=== PATIENT | male | born 1975 | race Caucasian/White ===

== ENCOUNTER 2016-12-06 14:30 | Inpatient (IN) | payer OTHER, MEDICAID ==
--- NOTE | 2016-12-06 14:43 | EDPHY ---
H & P Time Seen by Provider: 12/06/16 14:33 HPI/ROS: CHIEF COMPLAINT: MS flare up" HISTORY OF PRESENT ILLNESS: 41-year-old homeless male with history of multiple sclerosis arrives via ambulance after call 911 stating that he was no longer able to ambulate or ride his bike secondary to acute Bilateral foot and ankle pain, weakness, right hand weakness. He describes this as a MS flare. He has been staying and [facility] up until 6 days ago, was then incarcerated and recently released. Seen at [facility] Emergency Department last evening for similar complaints according the patient although he states that his current symptoms are worse. He denies acute trauma. States that he is unable to care for himself. He denies: Fever, chills, skin discoloration, nausea, vomiting, myalgias. REVIEW OF SYSTEMS: A ten point review of systems was performed and is negative with the exception of the items mentioned in the HPI PAST MEDICAL & SURGICAL HISTORY: Multiple sclerosis. SOCIAL HISTORY: Homeless. Daily cigarette smoker PHYSICAL EXAM (Prior to examination, patient consented to physical exam, hands were washed and my usual and customary physical exam procedures followed) 1) GENERAL: poorly kept,. Appears nontoxic, answering questions appropriately . 2) HEAD: Normocephalic, atraumatic 3) HEENT: Pupils equal, round, reactive to light bilaterally. Sclera anicteric. 4) NECK: Full range of motion, no meningeal signs. 5) LUNGS: Clear auscultation bilaterally, no wheezes, no rhonchi, no retractions. 6) HEART: Regular rate and rhythm, no murmur, no heave, no gallop. 7) ABDOMEN: No guarding, no rebound, no focal tenderness, 8) MUSCULOSKELETAL: Patient is able to transfer only is unable to ambulate without assistance of at a minimum to ER staff members. Peripheral edema of the lower extremities is noted. No signs of infection. Upper extremities with polyarthralgia on exam with no signs of infection bilaterally. No signs of cellulitis. 9) BACK: No CVA tenderness, no midline vertebral tenderness, no fluctuance, no step-off, no obvious trauma, no visual or palpable abnormality. 10) SKIN: No rash, no petechiae. 11) Psychiatric: Patient is oriented X 3, there is no agitation. DIFFERENTIAL DIAGNOSIS: no particular order including but not limited to multiple sclerosis flare, polyarthralgia, neuropathy, - Medical/Surgical History Hx Asthma: No Hx Chronic Respiratory Disease: No Hx Diabetes: No Hx Cardiac Disease: No Hx Renal Disease: No Hx Cirrhosis: No Hx Alcoholism: No Hx HIV/AIDS: No Hx Splenectomy or Spleen Trauma: No Other PMH: MS, mental health - Social History Smoking Status: Current every day smoker Constitutional: Initial Vital Signs Temperature (C) 36.6 C 12/06/16 14:45 Heart Rate 108 H 12/06/16 14:45 Respiratory Rate 18 12/06/16 14:45 Blood Pressure 150/72 H 12/06/16 14:45 O2 Sat (%) 96 12/06/16 14:45 O2 Delivery Mode Room Air Allergies/Adverse Reactions: No Known Allergies Allergy (Verified 11/12/16 05:58) Home Medications: Medication Instructions Recorded NK [No Known Home Meds] 12/06/16 Medical Decision Making ED Course/Re-evaluation: 2:45 pm Old medical records including [facility] ER note from last evening reviewed by myself. The patient is unable to ambulate without significant assistance of ER staff. Discussed case with Dr Sage in ER. Plan will be likely admission. 3:43 p.m.: Consultation with hospitalist Dr. Villarreal who will admit patient - Data Points Laboratory Results: Laboratory Results 12/06/16 15:11 12/06/16 15:11 WBC 7.38 10^3/uL (3.80-9.50) RBC 4.27 L 10^6/uL (4.40-6.38) Hgb 13.1 L g/dL (13.7-17.5) Hct 38.7 L % (40.0-51.0) MCV 90.6 fL (81.5-99.8) MCH 30.7 pg (27.9-34.1) MCHC 33.9 g/dL (32.4-36.7) RDW 13.2 % (11.5-15.2) Plt Count 274 10^3/uL (150-400) MPV 8.9 fL (8.7-11.7) Neut % (Auto) 49.2 % (39.3-74.2) Lymph % (Auto) 29.9 % (15.0-45.0) Stanton % (Auto) 9.9 % (4.5-13.0) Eos % (Auto) 10.2 H % (0.6-7.6) Baso % (Auto) 0.5 % (0.3-1.7) Nucleat RBC Rel Count 0.0 % (0.0-0.2) Absolute Neuts (auto) 3.63 10^3/uL (1.70-6.50) Absolute Lymphs (auto) 2.21 10^3/uL (1.00-3.00) Absolute Monos (auto) 0.73 10^3/uL (0.30-0.80) Absolute Eos (auto) 0.75 H 10^3/uL (0.03-0.40) Absolute Basos (auto) 0.04 10^3/uL (0.02-0.10) Absolute Nucleated RBC 0.00 10^3/uL (0-0.01) Immature Gran % 0.3 % (0.0-1.1) Immature Gran # 0.02 10^3/uL (0.00-0.10) Sodium Pending Potassium Pending Chloride Pending Carbon Dioxide Pending Anion Gap Pending BUN Pending Creatinine Pending Estimated GFR Pending Glucose Pending Calcium Pending Departure - Departure Disposition: [facility] Inpatient Acute Clinical Impression: Multiple sclerosis exacerbation, Homeless Condition: Fair Referrals: Patient,NotPresent [Primary Care Provider] - As per Instructions
[2016-12-06 15:19] LABS: % IMMATURE GRANULYOCYTES 0.3 % (0.0-1.1); ABSOLUTE IMMATURE GRANULOCYTES 0.02 10^3/uL (0.00-0.10); ADD DIFF? NO; ADD MORPH? NO; ADD SCAN? NO; ATYPICAL LYMPHOCYTE FLAG 20 (0-99); FRAGMENT RBC FLAG 0 (0-99); HEMATOCRIT 38.7 % (40.0-51.0); HEMOGLOBIN 13.1 g/dL (13.7-17.5); LEFT SHIFT FLG 0 (0-99); LIPEMIA HEMOLYSIS FLAG 90 (0-99); MEAN CELL HEMOGLOBIN 30.7 pg (27.9-34.1); MEAN CELL HEMOGLOBIN CONCENTR. 33.9 g/dL (32.4-36.7); MEAN CELL VOLUME 90.6 fL (81.5-99.8); MEAN PLATELET VOLUME 8.9 fL (8.7-11.7); PLATELET CLUMPS FLAG 0 (0-99); PLATELET COUNT 274 10^3/uL (150-400); RED BLOOD CELL COUNT 4.27 10^6/uL (4.40-6.38); RED CELL DISTRIBUTION WIDTH 13.2 % (11.5-15.2)
[2016-12-06 15:47] LABS: ANION GAP 12 mEq/L (8-16); CALCIUM 9.1 mg/dL (8.5-10.4); CARBON DIOXIDE 24 mEq/l (22-31); CHLORIDE 106 mEq/L (97-110); CREATININE 0.7 mg/dL (0.7-1.3); GLOMERULAR FILTRATION RATE > 60; GLUCOSE 108 mg/dL (70-100); POTASSIUM 4.2 mEq/L (3.5-5.2); SODIUM 142 mEq/L (134-144)
[2016-12-06] MEDS ORDERED: GABAPENTIN 300 MG CAP PO ONE (16:19)
[2016-12-06] MEDS ORDERED: PROMETHAZINE HCL 25 MG/ML INJ IVP PRN (16:21)
[2016-12-06] MEDS ORDERED: KETOROLAC 30 MG/1 ML SDV IVP PRN (16:21)
[2016-12-06] MEDS ORDERED: ACETAMINOPHEN 325 MG TAB PO PRN (16:21)
[2016-12-06] MEDS ORDERED: ONDANSETRON 4 MG/2 ML VIAL IVP PRN (16:21)
[2016-12-06] MEDS ORDERED: GABAPENTIN 300 MG CAP ONE (16:25)
[2016-12-06] MEDS: NS 1,000 ML IV SCH (17:45)
--- NOTE | 2016-12-06 20:35 | GHP ---
[f rep st] HISTORY AND PHYSICAL DATE OF ADMISSION: 12/06/2016 CHIEF COMPLAINT: Weakness. HISTORY OF PRESENT ILLNESS: The patient is a 41-year-old male diagnosed with multiple sclerosis and transverse myelitis here at [facility] in 2009. At that time, he had MRI findings on both his brain MRI and cervical MRI that were consistent with MS. He also reports a recent hospital ization to [place], where he was again found to have positive MRI changes and was started on treatmen t. He has a difficult social situation, however, and he is homeless. He was recently at [place], but there appeared to be some trouble with the law and he was temporally incarcerated and put back o n the streets. He is not doing well and having increased weakness for the last couple of days. He c alled 911 because he was no longer able to walk or ride his bike. He feels he is having another MS radha downs. He complains of increasing weakness in his hands. He is dropping things. He is unable to care for h imself. He has paresthesias in his fingers and it hurts to touch them. He has had some weakness. Chapis arellano has had increasing lower extremity edema. He does have some chronic right lower extremity weakness with a foot drop from his previous MS. He has increasing pain in his feet, ankle, and hands. He malave s increasing edema in his legs and hands. He describes the pain in his hands and feet as "shooting p ain." PAST MEDICAL HISTORY: 1. Multiple sclerosis and transverse myelitis, diagnosed by positive MRI in 2009. 2. Chronic right lower extremity weakness with foot drop. 3. Neuropathy. 4. Major depressive disorder with previous inpatient psychiatric hospitalizations. MEDICATIONS: Please see computer's list for full detailed list. I believe he is not taking anything . ALLERGIES: No known drug allergies. SOCIAL HISTORY: Smokes a half a pack per day. No alcohol. No drugs. He is homeless. Just left a SNF 10 days ago. REVIEW OF SYSTEMS: Complete review of systems obtained. Review of systems is negative regarding con stitutional, HEENT, GI, pulmonary, cardiovascular, , hematology, skin, musculoskeletal, endocrine, psych, except for positives and pertinent negatives listed as under HPI. FAMILY HISTORY: A sister with muscular dystrophy. PHYSICAL EXAMINATION: GENERAL: Well-developed, well-nourished male, in no acute distress. VITAL SI GNS: Temperature is 36.6, pulse 108, blood pressure 150/72, saturating 96% on room air. HEENT: Eye examination: Normal conjunctiva. Pupils equal and react to light. ENT: Normal ears and nose. He aring intact. Normal teeth. Oropharynx moist. NECK: Trachea midline. No thyromegaly. CHEST: No rmal respiratory effort. LUNGS: Clear to auscultation bilaterally. CARDIOVASCULAR: Regular rhythm . No murmur. 1+ lower extremity edema. ABDOMEN: Soft, nontender. No hepatosplenomegaly. SKIN: Poor hygiene. A lot of dry crusting skin. A lot of excoriations. Some erythema but nothing complet ree convincing for cellulitis, no warmth. MUSCULOSKELETAL: No sinus or clubbing. Strength is reduc ed upper and lower extremities. He has a weak hand beta tester. He has a 0/5 strength in right lower extre mity. NEURO: Cranial nerves intact. Decreased sensation to light touch. PSYCH: Alert and oriente d x3. Normal mood and affect. Normal judgment and insight. Normal memory. LABS: White count 7.38, hematocrit 38.7, platelets 274. Sodium 142, potassium 4.2, chloride 106, bi carb 24, BUN 14, creatinine 0.7, glucose 108. MEDICAL RECORD REVIEW: He was hospitalized here in 2009 and MRIs at that time did show changes consi stent with MS in his brain and cervical spine. He was thought to have transverse myelitis. He also, more recently, had a hospitalization here in October where the swelling and joint issues were more prominent. ASSESSMENT/PLAN: 1. Acute on chronic weakness, rule out multiple sclerosis flare. I will start with an MRI of his br ain and cervical spine, as this is the area where lesions have been found in the past. Will consult Neurology. 2. Neuropathy. We will restart him on gabapentin. 3. Lower extremity edema. Will check ultrasound to rule out deep venous thrombosis. We will monito r for cellulitis. However, at this point, my suspicion is low so will hold off on the antibiotics. 4. Tobacco dependence. Will offer nicotine patch. CODE STATUS: Full. ADMISSION STATUS: Will admit to inpatient as I anticipate greater than 2 midnights required given co mplicated situation discussed above. DVT PROPHYLAXIS: He is high risk. Will place on subcu Lovenox. /[id number]/MODL
--- NOTE | 2016-12-06 20:49 | US ---
Bilateral lower extremity venous Doppler examination. December 06, 2016 HISTORY: Bilateral lower extremity edema. TECHNIQUE: Sonographic evaluation of the lower extremity venous system was performed bilaterally util izing pulsed and color flow Doppler evaluation with augmentation and compression maneuvers. FINDINGS: Study is technically limited secondary to patient clinical condition. No evidence of deep venous thrombosis within the lower extremities bilaterally. Patent venous flow is identified in the common femoral, deep femoral, popliteal, and proximal calf veins, as visualized. IMPRESSION: 1. Negative bilateral lower extremity Doppler examination for DVT.
[2016-12-06] MEDS: oxyCODONE IR 5 MG TAB PO PRN (22:37)
[2016-12-07] MEDS: NS 1,000 ML IV SCH (03:33)
[2016-12-07 05:41] LABS: % IMMATURE GRANULYOCYTES 0.1 % (0.0-1.1); ABSOLUTE IMMATURE GRANULOCYTES 0.01 10^3/uL (0.00-0.10); ADD DIFF? NO; ADD MORPH? NO; ADD SCAN? NO; ATYPICAL LYMPHOCYTE FLAG 20 (0-99); FRAGMENT RBC FLAG 0 (0-99); HEMATOCRIT 36.9 % (40.0-51.0); HEMOGLOBIN 12.2 g/dL (13.7-17.5); LEFT SHIFT FLG 0 (0-99); LIPEMIA HEMOLYSIS FLAG 80 (0-99); MEAN CELL HEMOGLOBIN 30.5 pg (27.9-34.1); MEAN CELL HEMOGLOBIN CONCENTR. 33.1 g/dL (32.4-36.7); MEAN CELL VOLUME 92.3 fL (81.5-99.8); MEAN PLATELET VOLUME 9.1 fL (8.7-11.7); PLATELET CLUMPS FLAG 0 (0-99); PLATELET COUNT 248 10^3/uL (150-400); RED CELL DISTRIBUTION WIDTH 13.3 % (11.5-15.2)
[2016-12-07] MEDS: ENOXAPARIN 40 MG/0.4 ML SYR SC SCH (08:10)
[2016-12-07] MEDS: GABAPENTIN 300 MG CAP PO SCH ×2 (08:10→19:53)
[2016-12-07] MEDS: NICOTINE 14 MG/24 HR PATCH TD SCH (08:14)
--- NOTE | 2016-12-07 10:22 | GCON ---
[f rep st] CONSULTATION NEUROLOGY CONSULTATION. REFERRING PHYSICIAN: Mirian Lopez MD HISTORY: The patient is a 41-year-old gentleman who has multiple sclerosis. He is here because of a n exacerbation of symptoms characterized by increasing weakness in the legs and more pain in the wris ts and ankles. His history dates back almost 10 years ago when he 1st started having symptoms and wh at sounds like an optic neuritis attack in the beginning of transverse myelitis with right-sided numb ness or weakness. I saw him in 2009 when he was here in the hospital for alcohol withdrawal, and his workup at the time showed features of myelopathy for which MRI confirmed lesion in the cervical cord , and then subsequent brain MRI showed lesions typical of the disease. He had received steroids and had some improvements. He has had some chronic right foot drop which has never fully resolved. Afte r that, he was lost to followup in terms of seeing me in the office. He has continued with various c hallenges from his homelessness and apparent incarceration recently. He has had some treatment in [facility] a few months ago for right wrist drop for which he says steroids were helpful. In the last 48 hours or so, these symptoms have started to flare up without any obvious precipitating cause such as illness. He really started noticing trouble getting on his bike and riding his bicycle. He says his walking has deteriorated a bit as well. The symptoms are moderate in severity and certainly much wo rse than his prior baseline, he says. REVIEW OF SYSTEMS: A 10-point review of systems was completed and unremarkable except for that noted above. PAST MEDICAL HISTORY: As outlined above. Also, history of chronic alcoholism, psychiatric illness w ith psychiatric inpatient hospitalizations in the past, peripheral neuropathy, and chronic right foot drop for many years, either related to peripheral neuropathy or multiple sclerosis. It does not salina ear that he has been on any regular disease modifying medications at any point due to his social situ ation. He smokes half pack a day. He is apparently not drinking currently. No drug use. He does r emain homeless and was in an SNF recently. He also apparently was discharged; I am not byrne re if he is eligible to go back if there were legal issues. All of that is very unclear. ALLERGIES: No known drug allergies. MEDICATIONS: He was not on any medicines prior to admission. The patient is now on Lovenox, gabapen tin 300 mg twice daily, Motrin as needed, Toradol as needed, morphine as needed, NicoDerm patch, Zofr an, oxycodone, Phenergan. FAMILY HISTORY: Noncontributory. PHYSICAL EXAMINATION: VITAL SIGNS: Blood pressure 121/72, pulse of 86, respirations 20, temperature 36.4. GENERAL: He is well developed, in no acute distress. EYES: Clear. NECK: Supple with no b ruits or masses. CARDIAC: Regular rate and rhythm with no murmur. EXTREMITIES: Have no cyanosis, but there is a little bit of erythema in the right lower extremity with a little bit of distal edema and scaling of the skin. NEUROLOGIC: He is awake, alert, and attentive. He is oriented to person, place, time, and general situation. Concentration and attention are preserved. General fund of [facility] led is reduced. He has good recent and remote memory. His mood seems to be euthymic. Pupils are 2 mm and reactive. Funduscopic exam unremarkable. Visual schmitt are full. Extraocular movements ar e intact. Normal facial sensation and strength. Palate elevates symmetrically. Tongue protrudes mi dline. Hearing is preserved. No weakness of head turning or shoulder shrug. Motor exam: Normal mu scle bulk and tone with 4 or 5/5 strength throughout except for some weakness of dorsiflexion on the right in the 2/5 range. Reflexes are brisk. Sensation is preserved for temperature and light touch. No ataxia in the upper extremities. He has MRI of the brain and C-spine pending for followup evaluation to assess the status of his demye linating disease. LABORATORY STUDIES: Hematocrit is 36.9, normal white count. Chemistry unremarkable. Toxicology radha ws marijuana in the system from October but none since then, but it was not checked on this hospital ization. IMPRESSION: The patient has a clear history of multiple sclerosis of a relapsing remitting form, and has had response to steroids in the past that have been helpful. I have had an opportunity to see xiao leon 3 years ago, but he was lost to follow up after that. His social situation is the main issue from his homelessness and other challenges. He clearly needs to be on regular disease modifying therapy, but that is not an option if he cannot regularly follow up due to the potential toxicity and other c hallenges. For now, he needs to be put on a course of IV steroids which I will initiate today, and t morris he can go on an oral taper after that. Depending on what we can determine for followup, I am hap py to see him in the office and try to come up with a strategy for getting him on disease modifying t herapy. /[id number]/MODL
[2016-12-07] MEDS ORDERED: LORazepam 2 MG/ML INJ IVP ONE (10:57)
[2016-12-07] MEDS ORDERED: LORazepam 2 MG/ML INJ ONE (11:02)
[2016-12-07] MEDS ORDERED: GADOBUTROL 10 ML VIAL IVP ONE (11:48)
--- NOTE | 2016-12-07 12:56 | HOSPPROG ---
Hospitalist Progress Note Assessment/Plan: 41-year-old male presents emergency room with complaints of weakness with history of MS. Is my 1st encounter with the patient, chart reviewed. Discussed the patient's care with Dr. Robert Lowe. # MS exacerbation MRI today IV steroids Appreciate Neurology consult PT OT trupti # homelessness Reviewed with test case developer Will continue to attempt to developed a discharge plan # history of neuropathy Will reinitiate home medications # lower extremity edema Ultrasound negative # disposition Unclear at this time Patient homeless but requiring further care in Will consider shelter facility rehabilitation Subjective: No specific issues. Feels weak and tired. No pain currently. Objective: Vital Signs Temp Pulse Resp BP Pulse Ox 36.4 C 86 20 121/72 H 96 12/07/16 08:00 12/07/16 08:00 12/07/16 08:00 12/07/16 08:00 12/07/16 08:00 Laboratory Results 12/07/16 04:36 - Physical Exam Constitutional: appears nourished, not in pain, chronically ill appearing Eyes: PERRL, anicteric sclera, EOMI Ears, Nose, Mouth, Throat: moist mucous membranes, hearing normal, ears appear normal Cardiovascular: regular rate and rhythym, No JVD, No edema Respiratory: no respiratory distress, no rales or rhonchi, reduced air movement Gastrointestinal: No tenderness, No ascites, No guarding Skin: warm, normal color, No erythema Musculoskeletal: no joint effusions, muscular tenderness, generalized weakness Neurologic: AAOx3 Psychiatric: not encephalopathic, thought process linear, poor insight, poor judgement ICD10 Worksheet Patient Problems: Problems Problem Status Diagnosed Arthralgia Acute Homeless Acute Multiple sclerosis exacerbation Acute Depression Acute
[2016-12-07] MEDS: methylPREDNISolone SOD SUCC 1 GM in D5W 100 ML IV SCH (13:11)
--- NOTE | 2016-12-07 14:18 | MR ---
MRI of the Brain (Without and With Contrast) at 1112 hours Clinical Indication: Multiple sclerosis, G 35, flareup. Right leg weakness. COMPARISON: MRI January 2010 Technique: T1-weighted images were acquired axially and sagittally from the foramen magnum to the ve rtex. Axial fast inversion recovery, fast T2-weighted, and diffusion-weighted axial images were obta ined without contrast. Postcontrast axial and coronal images with the uneventful intravenous administ ration of 8.5 mL Gadavist contrast. 8.5 mL Gadavist utilized for MRI brain and cervical spine. Findings: A few stable right frontal lobe mid white matter and periventricular white matter hyperint ense T2/FLAIR nonenhancing T2/FLAIR signal abnormalities, unchanged since January 2010. No evidence of new or enhancing demyelinating plaques. No brainstem or cerebellar lesions. The ventricles, cisterns, and sulci are normal without atrophy, hydrocephalus, midline shift, herniat ion, or epidural/subdural hematomas. No intracranial hemorrhage. Diffusion-weighted images demonstrat e no acute infarct. Cerebellar tonsils are in normal position. Pituitary gland is normal in size. Nor mal signal flow-void in the superior sagittal sinus, basilar artery, and bilateral internal carotid a rteries indicating patency. Postcontrast images demonstrate no enhancing lesions or abnormal leptomen ingeal enhancement. Left maxillary sinus 2 cm mucous retention cyst. Impression: 1. A few right frontal lobe stable white matter nonenhancing lesions probably representing multiple s clerosis demyelinating plaques. 2. No new demyelinating plaques or enhancing plaques. 3. No acute infarct, acute hemorrhage, hydrocephalus or mass effect.
--- NOTE | 2016-12-07 16:59 | MR ---
MRI Cervical Spine (Without and With Contrast) History: Multiple sclerosis with right leg weakness. G 35 COMPARISON: MRI January 2010 Technique: Sagittal T1, T2 and axial T1, T2 MR sequences of the cervical spine without contrast. Post contrast sagittal and axial T1-weighted sequences obtained with the uneventful intravenous administra tion of 8.5 mL Gadavist contrast utilized for the MRI brain and cervical spine. Findings: No cervical compression fracture or destructive osseous lesions. Multifocal areas of abn ormal increased T2/FLAIR signal intensity in the cervical spinal cord from the C2 through the T2 leve ls with associated atrophy of the cord at C2-C3 and C6. These are consistent with nonenhancing demyel inating plaques compatible with multiple sclerosis and appear similar to the study from 2009 although there is suggestion of mild worsening of cord atrophy at the C3 level. Cerebellar tonsils are in no rmal position. C2-C3: Mild bilateral facet arthropathy without disc herniation or stenosis. C3-C4: Mild degenerative disc disease with a right paramedian disc/osteophyte complex and disc hernia tion, protrusion, resulting in mild central canal stenosis and mild right neural foraminal stenosis. No cord compression. C4-C5: Mild bilateral facet arthropathy and mild degenerative disc disease with bilateral uncovertebr al osteophytes resulting in mild bilateral neural foraminal stenosis without central canal stenosis. C5-C6: No disc herniation or stenosis. C6-C7: Mild degenerative disc disease with ventral osteophytes and bilateral uncovertebral osteophyte s resulting in [id number] bilateral neural foraminal stenosis without central canal stenosis. C7-T1: Moderate bilateral facet arthropathy without central canal or neural foraminal stenosis. No cord compression or deformity. No enhancing lesions, diskitis, or osteomyelitis. Impression: 1. Multiple nonenhancing demyelinating plaques in the cervical spinal cord with associated cord atrop hy. 2. C3-C4 right paramedian disc/osteophyte complex and disc herniation, protrusion, resulting in mild central canal stenosis and mild right neural foraminal stenosis. 3. No cord compression. 4. Please see above findings at specific disk levels.
[2016-12-07] MEDS: oxyCODONE IR 5 MG TAB PO PRN (19:53)
[2016-12-08] MEDS: ENOXAPARIN 40 MG/0.4 ML SYR SC SCH (09:49)
[2016-12-08] MEDS: methylPREDNISolone SOD SUCC 1 GM in D5W 100 ML IV SCH (09:50)
[2016-12-08] MEDS: GABAPENTIN 300 MG CAP PO SCH ×2 (09:50→21:54)
[2016-12-08] MEDS: NICOTINE 14 MG/24 HR PATCH TD SCH (09:56)
[2016-12-08] MEDS ORDERED: LORazepam 2 MG/ML INJ IVP PRN (14:03)
--- NOTE | 2016-12-08 14:28 | HOSPPROG ---
Hospitalist Progress Note Assessment/Plan: 41-year-old male presents emergency room with complaints of weakness with history of MS. # MS exacerbation IV steroids Appreciate Neurology consult PT OT eval # homelessness Reviewed with [employer] Will continue to attempt to developed a discharge plan # history of neuropathy home medications # agitation Likely secondary to IV steroids P.r.n. Ativan ordered Reviewed boundaries with patient # lower extremity edema Ultrasound negative # disposition Unclear at this time Patient homeless but requiring further care Will consider residential facility rehabilitation Subjective: Patient feels better today. Still felling tired. Objective: Vital Signs Temp Pulse Resp BP Pulse Ox 36.8 C 90 16 116/69 94 12/08/16 07:58 12/08/16 07:58 12/08/16 07:58 12/08/16 07:58 12/07/16 22:32 Laboratory Results 12/07/16 04:36 12/07/16 12/08/16 12/09/16 05:59 05:59 05:59 Intake Total 500 Output Total 700 625 Balance -200 -625 - Physical Exam Constitutional: no apparent distress, not in pain Eyes: PERRL, anicteric sclera Ears, Nose, Mouth, Throat: hearing normal, ears appear normal Cardiovascular: regular rate and rhythym, No JVD Respiratory: no respiratory distress, reduced air movement Gastrointestinal: No tenderness, No ascites Skin: warm, normal color Musculoskeletal: normal joint ROM, no joint effusions Neurologic: AAOx3 Psychiatric: not encephalopathic, poor insight, poor judgement ICD10 Worksheet Patient Problems: Problems Problem Status Diagnosed Arthralgia Acute Homeless Acute Multiple sclerosis exacerbation Acute Depression Acute
[2016-12-08] MEDS: oxyCODONE IR 5 MG TAB PO PRN (15:14)
--- NOTE | 2016-12-09 09:03 | NEUROPROG ---
Assessment: Patient has had some escalated anger and can certainly stop the steroids now that he has completed 3 days. It is not necessary to do a oral taper. It is not necessarily related to steroids, but it is certainly a possibility. The anti-inflammatory effects will persist and the cognitive changes would fairly rapidly resolve if that is the issue. Once disposition is determined, he can certainly follow up in the office for management of multiple sclerosis. Please contact me with any other questions. Objective: Vital Signs Temp Pulse Resp BP Pulse Ox 36.7 C 91 18 125/74 H 92 12/09/16 08:00 12/09/16 08:00 12/09/16 08:00 12/09/16 08:00 12/09/16 08:00 Laboratory Results 12/07/16 04:36 12/08/16 12/09/16 12/10/16 05:59 05:59 05:59 Intake Total 500 108 Output Total 700 9676 Balance -200 -1167 Allergies/Adverse Reactions: No Known Allergies Allergy (Verified 11/12/16 05:58)
[2016-12-09] MEDS: GABAPENTIN 300 MG CAP PO SCH ×2 (09:15→21:02)
[2016-12-09] MEDS: ENOXAPARIN 40 MG/0.4 ML SYR SC SCH (09:15)
[2016-12-09] MEDS: NICOTINE 14 MG/24 HR PATCH TD SCH (09:15)
[2016-12-09] MEDS: methylPREDNISolone SOD SUCC 1 GM in D5W 100 ML IV SCH (09:20)
[2016-12-09] MEDS: IBUPROFEN 600 MG TAB PO PRN (12:09)
[2016-12-09 16:04] LABS: PHENCYCLIDINE URINE BCH < 6 ng/ml (NEGATIVE); TETRAHYDROCANNABINOL URINE 60 ng/mL (NEGATIVE)
[2016-12-09 16:05] LABS: PHENCYCLIDINE URINE BCH NEGATIVE (NEGATIVE); TETRAHYDROCANNABINOL URINE 60 ng/mL (NEGATIVE)
[2016-12-09] MEDS: LORazepam 1 MG TAB PO PRN ×2 (16:55→21:02)
--- NOTE | 2016-12-09 20:28 | HOSPPROG ---
Hospitalist Progress Note Assessment/Plan: 41-year-old male presents emergency room with complaints of weakness with history of MS. # MS exacerbation IV steroids completed Appreciate Neurology consult PT OT eval # homelessness Reviewed with case reviewer Will continue to attempt to develope a discharge plan PASSR pending, likely DC to [place] # history of neuropathy home medications # agitation Likely secondary to IV steroids P.r.n. Ativan ordered Reviewed boundaries with patient he will be discharged if any further inappropriate behavior happens # lower extremity edema Ultrasound negative # disposition Unclear at this time Patient homeless but requiring further care [facility] rehabilitation recommended Await PASSR D/W pt and CM. Subjective: Up in chair. No specific issues. Having some anxiety. Feels unsafe to DC to the street. Objective: Vital Signs Temp Pulse Resp BP Pulse Ox 36.7 C 91 18 125/74 H 92 12/09/16 08:00 12/09/16 08:00 12/09/16 08:00 12/09/16 08:00 12/09/16 08:00 Laboratory Results 12/07/16 04:36 12/08/16 12/09/16 12/10/16 05:59 05:59 05:59 Intake Total 500 108 Output Total 700 1275 Balance -200 -1167 - Physical Exam Constitutional: no apparent distress, appears nourished, not in pain Eyes: PERRL, anicteric sclera, EOMI Ears, Nose, Mouth, Throat: moist mucous membranes, hearing normal, ears appear normal Cardiovascular: regular rate and rhythym, No irregularly irregular, No JVD Respiratory: no respiratory distress, no rales or rhonchi, clear to auscultation Gastrointestinal: normoactive bowel sounds, No tenderness, No ascites Skin: warm, normal color, No erythema Musculoskeletal: no joint effusions, muscular tenderness, generalized weakness Neurologic: AAOx3 Psychiatric: interacting appropriately, not encephalopathic, thought process linear, anxious ICD10 Worksheet Patient Problems: Problems Problem Status Diagnosed Arthralgia Acute Homeless Acute Multiple sclerosis exacerbation Acute Depression Acute
[2016-12-10] MEDS: LORazepam 1 MG TAB PO PRN ×4 (02:37→22:24)
--- NOTE | 2016-12-10 07:15 | HOSPPROG ---
Hospitalist Progress Note Assessment/Plan: 41-year-old male PMH MS diagnosed 10 years ago, MDD, EtOH, presented to ED on with increased weakness in hands, inability to care for himself, paresthesias in fingers, increasing pain in ankles/hands/feet, edema in hands/ feet. # MS exacerbation IV steroids completed Appreciate Neurology consult PT OT eval # homelessness Reviewed with caseworker protective services Will continue to attempt to develop a discharge plan PASSR pending, likely DC to [place] # history of neuropathy home medications # agitation Likely secondary to IV steroids P.r.n. Ativan ordered Reviewed boundaries with patient he will be discharged if any further inappropriate behavior happens # lower extremity edema Ultrasound negative # disposition Unclear at this time Patient homeless but requiring further care half-way facility rehabilitation recommended Await PASSR D/W pt and CM. Subjective: He feels his mood is more stable. Reports ongoing shooting pains in hands. Still feels unstable in his gait. Objective: Vital Signs Temp Pulse Resp BP Pulse Ox 98.1 F 77 16 134/83 H 97 12/09/16 23:30 12/09/16 23:30 12/09/16 23:30 12/09/16 23:30 12/09/16 23:30 Laboratory Results 12/07/16 04:36 12/09/16 12/10/16 12/11/16 05:59 05:59 05:59 Intake Total 108 Output Total 1275 Balance -1167 - Physical Exam Constitutional: no apparent distress, appears nourished Eyes: PERRL, anicteric sclera Ears, Nose, Mouth, Throat: moist mucous membranes, hearing normal Cardiovascular: regular rate and rhythym, no murmur, rub, or gallop Respiratory: no respiratory distress, no rales or rhonchi Gastrointestinal: normoactive bowel sounds, soft, non-tender abdomen Genitourinary: no bladder fullness Skin: warm, normal color Neurologic: AAOx3 Psychiatric: interacting appropriately, not anxious ICD10 Worksheet Patient Problems: Problems Problem Status Diagnosed Arthralgia Acute Homeless Acute Multiple sclerosis exacerbation Acute Depression Acute
[2016-12-10] MEDS: NICOTINE 14 MG/24 HR PATCH TD SCH (10:45)
[2016-12-10] MEDS: ENOXAPARIN 40 MG/0.4 ML SYR SC SCH (10:45)
[2016-12-10] MEDS: GABAPENTIN 300 MG CAP PO SCH ×2 (10:45→22:24)
[2016-12-11] MEDS: LORazepam 1 MG TAB PO PRN ×4 (03:02→21:28)
[2016-12-11] MEDS: ENOXAPARIN 40 MG/0.4 ML SYR SC SCH (09:32)
[2016-12-11] MEDS: GABAPENTIN 300 MG CAP PO SCH ×2 (09:32→21:28)
[2016-12-11] MEDS: NICOTINE 14 MG/24 HR PATCH TD SCH (09:32)
--- NOTE | 2016-12-11 10:42 | HOSPPROG ---
Hospitalist Progress Note Assessment/Plan: 41-year-old male PMH MS diagnosed 10 years ago, MDD, EtOH, presented to ED on with increased weakness in hands, inability to care for himself, paresthesias in fingers, increasing pain in ankles/hands/feet, edema in hands/ feet. # MS exacerbation IV steroids completed Appreciate Neurology consult PT OT eval # homelessness Reviewed with case manager specialist Will continue to attempt to develop a discharge plan PASSR pending, likely DC to [facility] but we likely won't hear until tomorrow # history of neuropathy home medications # agitation Likely secondary to IV steroids P.r.n. Ativan ordered pt is awake and alert but minimally responds to questions today # lower extremity edema Ultrasound negative # disposition Unclear at this time Patient homeless but requiring further care shelter facility rehabilitation recommended Await PASSR D/W pt and CM. Subjective: Reports he is not doing well but will not answer further questions. Objective: Vital Signs Temp Pulse Resp BP Pulse Ox 97.7 F 96 16 128/84 H 94 12/11/16 07:40 12/11/16 07:40 12/11/16 07:40 12/11/16 07:40 12/11/16 07:40 Laboratory Results 12/07/16 04:36 - Physical Exam Constitutional: no apparent distress, appears nourished Ears, Nose, Mouth, Throat: moist mucous membranes Cardiovascular: regular rate and rhythym, no murmur, rub, or gallop Respiratory: no respiratory distress, no rales or rhonchi Skin: warm, normal color ICD10 Worksheet Patient Problems: Problems Problem Status Diagnosed Arthralgia Acute Homeless Acute Multiple sclerosis exacerbation Acute Depression Acute
[2016-12-11] MEDS: oxyCODONE IR 5 MG TAB PO PRN (21:33)
[2016-12-12] MEDS: oxyCODONE IR 5 MG TAB PO PRN ×3 (04:57→20:14)
[2016-12-12] MEDS: LORazepam 1 MG TAB PO PRN ×3 (04:58→22:36)
[2016-12-12] MEDS: NICOTINE 14 MG/24 HR PATCH TD SCH (08:20)
[2016-12-12] MEDS: ENOXAPARIN 40 MG/0.4 ML SYR SC SCH (08:20)
[2016-12-12] MEDS: GABAPENTIN 300 MG CAP PO SCH ×2 (08:20→20:14)
--- NOTE | 2016-12-12 16:08 | HOSPPROG ---
Hospitalist Progress Note Assessment/Plan: 41-year-old male presents emergency room with complaints of weakness with history of MS. # MS exacerbation IV steroids completed Appreciate Neurology consult PT OT eval # homelessness Reviewed with catalytic case operator Will continue to attempt to develop a discharge plan PASSR pending, likely DC to [place] # history of neuropathy home medications # agitation Likely secondary to IV steroids P.r.n. Ativan ordered Reviewed boundaries with patient he will be discharged if any further inappropriate behavior happens # lower extremity edema Ultrasound negative # disposition Unclear at this time Patient homeless but requiring further care [facility] facility rehabilitation recommended Await PASSR D/W pt and CM. Subjective: Anxious about discharge. No current pain. No specific issues. Objective: Vital Signs Temp Pulse Resp BP Pulse Ox 36.8 C 112 H 18 137/83 H 94 12/12/16 15:27 12/12/16 15:27 12/12/16 15:27 12/12/16 15:27 12/12/16 15:27 Laboratory Results 12/07/16 04:36 12/11/16 12/12/16 12/13/16 05:59 05:59 05:59 Intake Total 1700 Output Total 2650 Balance -950 - Physical Exam Constitutional: no apparent distress, appears nourished, not in pain Eyes: PERRL, anicteric sclera, EOMI Ears, Nose, Mouth, Throat: moist mucous membranes, hearing normal, ears appear normal Cardiovascular: regular rate and rhythym, No JVD Respiratory: no respiratory distress, reduced air movement Gastrointestinal: No tenderness, No ascites Skin: warm, normal color Musculoskeletal: muscular tenderness, abnormal gait, generalized weakness Neurologic: AAOx3 Psychiatric: not anxious, not encephalopathic ICD10 Worksheet Patient Problems: Problems Problem Status Diagnosed Arthralgia Acute Homeless Acute Multiple sclerosis exacerbation Acute Depression Acute
[2016-12-12] MEDS: IBUPROFEN 600 MG TAB PO PRN (22:36)
[2016-12-13 07:16] VITALS: RESP 18
[2016-12-13] MEDS: GABAPENTIN 300 MG CAP PO SCH ×2 (09:21→22:23)
[2016-12-13] MEDS: NICOTINE 14 MG/24 HR PATCH TD SCH (09:21)
[2016-12-13] MEDS: ENOXAPARIN 40 MG/0.4 ML SYR SC SCH (09:22)
--- NOTE | 2016-12-13 15:04 | HOSPPROG ---
Hospitalist Progress Note Assessment/Plan: 41-year-old male presents emergency room with complaints of weakness with history of MS. # MS exacerbation IV steroids completed Appreciate Neurology consult PT OT eval # homelessness Reviewed with pillowcase turner Will continue to attempt to develop a discharge plan PASSR complete, likely DC to [place] # history of neuropathy home medications # agitation Likely secondary to IV steroids P.r.n. Ativan ordered Reviewed boundaries with patient he will be discharged if any further inappropriate behavior happens # lower extremity edema Ultrasound negative # disposition Unclear at this time Patient homeless but requiring further care halfway facility rehabilitation recommended D/W pt and CM. DC when facility accepts patient Subjective: Tired today. No specific complaints. Anxious to leave the hospital. Still having some weakness. Objective: Vital Signs Temp Pulse Resp BP Pulse Ox 36.7 C 80 18 112/76 94 12/13/16 07:15 12/13/16 07:15 12/13/16 07:15 12/13/16 07:15 12/13/16 07:15 Laboratory Results 12/07/16 04:36 12/12/16 12/13/16 12/14/16 05:59 05:59 05:59 Intake Total 1700 Output Total 2650 350 Balance -950 -350 - Physical Exam Constitutional: appears nourished, not in pain Eyes: PERRL, anicteric sclera Ears, Nose, Mouth, Throat: moist mucous membranes, hearing normal, ears appear normal Cardiovascular: No JVD, No edema Respiratory: no respiratory distress, reduced air movement Gastrointestinal: No tenderness, No ascites Skin: warm, normal color Musculoskeletal: generalized weakness Neurologic: AAOx3 Psychiatric: interacting appropriately, not anxious, not encephalopathic ICD10 Worksheet Patient Problems: Problems Problem Status Diagnosed Arthralgia Acute Homeless Acute Multiple sclerosis exacerbation Acute Depression Acute
[2016-12-13] MEDS: IBUPROFEN 600 MG TAB PO PRN (22:22)
[2016-12-13] MEDS: LORazepam 1 MG TAB PO PRN (22:23)
[2016-12-14 08:06] VITALS: BP 139/77; PULSE 90; TEMP 97.8; O2SAT 96
[2016-12-14] MEDS: NICOTINE 14 MG/24 HR PATCH TD SCH (08:37)
[2016-12-14] MEDS: GABAPENTIN 300 MG CAP PO SCH (08:37)
[2016-12-14] MEDS: ENOXAPARIN 40 MG/0.4 ML SYR SC SCH (08:37)
--- NOTE | 2016-12-14 09:52 | PDIAF ---
- Diagnosis Diagnosis: MS Code Status: Full Code - Medication Management Discharge Medications: Medications to Continue on Transfer Acetaminophen [Tylenol 325mg (*)] 650 mg PO Q4 PRN #0 tab 12/09/16 [Last Taken Unknown] Gabapentin [Neurontin 300 MG (*)] 300 mg PO BID #60 cap 12/09/16 [Last Taken Unknown] Ibuprofen [Motrin (*)] 600 mg PO Q6HRS PRN #0 tab 12/09/16 [Last Taken Unknown] LORazepam [Ativan (*)] 1 mg PO Q4HRS PRN #0 tab 12/14/16 [Last Taken Unknown] Discharge Medications: Refer to the Discharge Home Medication list for PRN reason. PICC Care - Routine: N/A - Orders Services needed: Registered Nurse, Physical Therapy, Occupational Therapy - Follow Up Care Current Providers and Referrals: Patient,NotPresent [Unknown] - As per Instructions Robert Lowe MD [Medical Doctor] -
--- NOTE | 2016-12-14 15:32 | GDS ---
[f rep st] DISCHARGE SUMMARY DISCHARGE DIAGNOSES: 1. Multiple sclerosis exacerbation. 2. Weakness. 3. Homelessness. 4. Neuropathy. 5. Edema. CONSULTATIONS: Neurology. STUDIES AND PROCEDURES: 1. Doppler. 2. Brain MRI. 3. Cervical spine MRI. PHYSICAL EXAMINATION: GENERAL: The patient is alert and oriented, in no acute distress. VITAL SIGN S: Afebrile at 36.6, pulse 90, respiratory rate is 18, blood pressure is 139/77, saturating 96% on r oom air. I saw and evaluated the patient on the day of discharge. HOSPITAL COURSE: The patient is a 41-year-old male who presented to the emergency room with complain ts of weakness. He was evaluated and diagnosed with: 1. Acute MS exacerbation. During this hospitalization, he was treated with IV steroids. A neurolog y consult was obtained. MRI of his brain and neck were conclusive for new demyelinating plaques. He is recommended to have outpatient continued management of his MS, and will follow up with Dr. Brea amin of neurology. 2. Homelessness. The patient has been discharged to [facility] for further rehabilitation and manage ment. 3. Neuropathy. His home medications have been continued. 4. Agitation. This has resolved and is likely secondary to the high-dose steroids. 5. Lower extremity edema. Bilateral ultrasounds negative during this hospitalization. The patient' s edema has significantly improved. DISPOSITION: The patient will be discharged to [facility] for further strengthening and management. There are no pending studies. DISCHARGE MEDICATIONS: Please refer to EMR form. The patient has been continued on his previously p rescribed Neurontin. FOLLOWUP: With Dr. Lowe, his primary neurologist, as well as [facility], his primary care physician. I spent greater than 35 minutes in the care, coordination, and management of this patient's dispositi on. /[id number]/MODL
== END 2016-12-14 11:46 | DRG 60 ==
LOC: EDUNIT# → F3E 17:49
PROVIDERS: ADMIT Internal Medicine; ATTEND Hospitalist
DX: G35 Multiple sclerosis (principal); G62.9 Polyneuropathy, unspecified; F32.9 Major depressive disorder, single episode, unspecified; F17.210 Nicotine dependence, cigarettes, uncomplicated; Z59.0 Homelessness; F10.21 Alcohol dependence, in remission; R60.9 Edema, unspecified; R45.1 Restlessness and agitation
CPT/HCPCS: 80307; 92507-GN; 92523-GN; 92610-GN; 97110-GO; 97116-GP; 97162-GP; 97166-GO; 97530-GO; A9585; G0480; G8978-GP-CJ; G8979-GP-CI; G8987-GO-CL; G8988-GO-CI; G8996-GN-CH; G8997-GN-CH; G8998-GN-CH; G9165-GN-CI; G9165-GN-CJ; G9166-GN-CI; G9167-GN-CI; J1650; J1885; J2930

== ENCOUNTER 2017-10-29 15:24 | Emergency (ER) | payer OTHER, MEDICAID ==
[2017-10-29 15:38] VITALS: BP 134/93; PULSE 92; RESP 16; TEMP 98.8; O2SAT 95
--- NOTE | 2017-10-29 16:00 | EDPHY ---
H & P Time Seen by Provider: 10/29/17 15:32 HPI/ROS: 42-year-old male presents complaining of 1 week of rash, pruritic, worse at nighttime. He states that began about 1 week ago and initially was in the creases of his neck and now involves his arms and torso. No fevers or chills, no current cold symptoms no recent illnesses. Patient denies unusual exposures other than he was staying in a intermediate last week just prior to the onset of this rash. Review of systems As per HPI General no fever no chills no weakness HEENT no eye pain no eye discharge. No eye redness, no sore throat Respiratory no cough, no shortness of breath Cardiac no chest pain, no peripheral edema GI no abdominal pain, no diarrhea, no constipation, no nausea, no vomiting no flank pain, no hematuria, no dysuria Musculoskeletal no myalgias, no joint pain Heme no easy bruising, no easy bleeding Endo no polyuria, no polydipsia Skin positive rashes, no pruritus Neuro no syncope, no dizziness, no headaches Psych is no suicidal ideation, no homicidal ideation Past Medical/Surgical History: Depression/anxiety Social History: Smokes daily, denies heavy alcohol or drug use Smoking Status: Current every day smoker Physical Exam: 42-year-old male alert and oriented no acute distress nontoxic appearance afebrile HEENT atraumatic normocephalic, extraocular muscles intact, anicteric Oropharynx negative for erythema negative exudate, tolerating her own secretions Neck supple no meningismus Lungs clear to auscultation bilaterally Heart regular rate and rhythm without murmur rub or gallop Abdomen nondistended normoactive bowel sounds soft nontender Back no CVA tenderness, no step-offs, no spinal tenderness Extremities no cyanosis clubbing or edema Neuro alert and oriented, no focal deficits Skin Scattered erythematous macules extending from Neck to hips primarily anteriorly Scattered burrows No lesions noted on legs no lesions noted on back Constitutional: Initial Vital Signs Temperature (C) 37.1 C 10/29/17 15:32 Heart Rate 92 10/29/17 15:32 Respiratory Rate 16 10/29/17 15:32 Blood Pressure 134/93 H 10/29/17 15:32 O2 Sat (%) 95 10/29/17 15:32 O2 Delivery Mode Room Air Allergies/Adverse Reactions: No Known Allergies Allergy (Verified 10/29/17 15:38) Home Medications: Medication Instructions Recorded Acetaminophen [Tylenol 325mg (*)] 650 mg PO Q4 PRN #0 tab 12/09/16 Gabapentin [Neurontin 300 MG (*)] 300 mg PO BID #60 cap 12/09/16 Ibuprofen [Motrin (*)] 600 mg PO Q6HRS PRN #0 tab 12/09/16 LORazepam [Ativan (*)] 1 mg PO Q4HRS PRN #0 tab 12/14/16 Permethrin 5% [Elimite 5%] 60 gm TP ONCE #2 cream 10/29/17 hydrOXYzine HCL [hydrOXYzine HCL 25 mg PO Q8 PRN #30 tab 10/29/17 (RX)] Medical Decision Making ED Course/Re-evaluation: Patient seen and evaluated for rash of 1 weeks duration Impression scabies Plan Permethrin Hydroxyzine Follow-up PCP clinic Differential Diagnosis: Diagnosis considered but not limited to: Allergic reaction, contact dermatitis, viral exanthem, scabies Departure - Departure Disposition: Home, Routine, Self-Care Clinical Impression: Scabies Condition: Good Instructions: Scabies (ED) Additional Instructions: Apply special cream at bedtime, wash of the next morning, repeat in one week. Referrals: [facility] [Other] - As per Instructions Prescriptions: hydrOXYzine HCL [hydrOXYzine HCL (RX)] 25 mg PO Q8 PRN #30 tab PRN Reason: Itching Permethrin 5% [Elimite 5%] 60 gm TP ONCE #2 cream
== END 2017-10-29 16:35 | disposition home or self-care (01) ==
LOC: CED 15:24
DX: B86 Scabies (principal); F17.200 Nicotine dependence, unspecified, uncomplicated

== ENCOUNTER 2018-06-07 16:05 | Inpatient (IN) | payer OTHER, MEDICAID ==
[2018-06-07] MEDS ORDERED: KETOROLAC 30 MG/1 ML SDV ONE (17:01)
[2018-06-07] MEDS ORDERED: KETOROLAC 30 MG/1 ML SDV IVP ONE (17:04)
--- NOTE | 2018-06-07 17:05 | EDPHY ---
H & P Stated Complaint: Back, Neck, and Knee Pain Time Seen by Provider: 06/07/18 16:45 HPI/ROS: CHIEF COMPLAINT: Unable to walk HISTORY OF PRESENT ILLNESS: 42-year-old male with multiple sclerosis presents with inability to ambulate. He has ongoing pain in his low back and left lower extremity. The pain is now so severe that he is unable to walk. The pain is mild when he remains still and become severe with any movement. He has ongoing weakness in his right lower extremity, but this weakness has not changed recently. He was using methamphetamine to treat the pain but has been sober for 10 days. He is unsure if this has aggravated the ongoing pain. On no medications for MS currently. REVIEW OF SYSTEMS: complete 10 point ROS negative except at noted in the HPI - Personal History Current Tetanus Diphtheria and Acellular Pertussis (TDAP): Yes - Medical/Surgical History Hx Asthma: No Hx Chronic Respiratory Disease: No Hx Diabetes: No Hx Cardiac Disease: No Hx Renal Disease: No Hx Cirrhosis: No Hx Alcoholism: No Hx HIV/AIDS: No Hx Splenectomy or Spleen Trauma: No Other PMH: MS, mental health (PTSD), ADHD, Meth Abuse. Appendectomy - Social History Smoking Status: Current every day smoker Drug Use: Other (Methamphetamine) - Physical Exam Exam: General Appearance: Alert, calm Eyes: Pupils equal and round, no conjunctival pallor or injection ENT, Mouth: Mucous membranes moist Neck: Normal inspection Respiratory: Lungs are clear to auscultation Cardiovascular: Regular rate and rhythm Gastrointestinal: Abdomen is soft and nontender Neurological: Alert, oriented, right-sided weakness, right upper extremity greater than right lower extremity Back: Normal inspection, diffuse lumbar tenderness Skin: Warm and dry Extremities: bilateral pedal edema Psychiatric: Mood and affect normal Constitutional: Initial Vital Signs Temperature (C) 38.0 C 06/07/18 16:12 Heart Rate 95 06/07/18 16:12 Respiratory Rate 18 06/07/18 16:12 Blood Pressure 129/87 H 06/07/18 16:12 O2 Sat (%) 99 06/07/18 16:12 O2 Delivery Mode Room Air Allergies/Adverse Reactions: No Known Allergies Allergy (Verified 06/07/18 20:02) Home Medications: Medication Instructions Recorded NK [No Known Home Meds] 06/07/18 Medical Decision Making - Diagnostics Imaging Results: Imaging Impressions Cervical Spine MRI 06/07/18 17:06 Impression: 1. Evidence of demyelinating disease in the cervical cord, with stable appearance at C3-C4, with atrophy of the cervical cord, and also stable appearance of the lesion at C5-C6. No evidence for abnormal enhancement. Possible new lesion in the upper thoracic spine at the level of T2, without evidence for abnormal enhancement to suggest active demyelinization. 2. Multilevel degenerative disk and degenerative joint disease cervical spine, with a stable appearance, as detailed above. Results called and discussed with Rosetta Suazo M.D., on June 07, 2018 at 2045. E:am Lumbar Spine MRI 06/07/18 17:06 Impression: Mild degenerative disk disease at L4-L5, with a new small left parasagittal protrusion, with slight left lateral recess narrowing. Results called and discussed with Rosetta Suazo M.D., on June 07, 2018 at 2050 hours. E:am Thoracic Spine MRI 06/07/18 17:06 Impression: 1. Possible new demyelinating lesion thoracic spinal cord level of T2. No evidence for abnormal enhancement.. 2. Mild multilevel degenerative disk disease midthoracic spine. Small left parasagittal protrusion at T6-T7 is stable in appearance. 3. Stable mild anterior wedge compression deformity T7. Results called and discussed with Rosetta Suazo M.D., on June 07, 2018 at 2050 hours. E:[facility] Brain MRI 06/07/18 17:07 Impression: There are a couple right frontal white matter lesions that can be seen with demyelinating disease with the patient's history of multiple sclerosis. One lesion is slightly larger but shows no evidence for abnormal enhancement. No new white matter lesion is visualized. Results called and discussed with Rosetta Suazo M.D., on June 07, 2018 at 2053. ED Course/Re-evaluation: This patient presents with severe back and left lower extremity pain, limiting his ability to ambulate. Dr. Lowe was consulted, discussed with Dr. Muhammad. He recommends admission and MRI of the brain and entire spine with and without contrast. The hospitalist service was consulted for admission. 8pm: pt developed fever 38.9. Labs/sono ordered per Dr. Power. Meets SIRS criteria. Lactate normal. Etiology of fever unclear, MRI pending. will be able to eval for epidural abscess/disciitis on MRI. 9pm: MRI-no epidural abscess/disciitis and no evidence of active MS. CXR unremarkable. Etiology of fever remains unclear. Pt awaiting MORIAH shukla, then will go to floor. Differential Diagnosis: Differential diagnosis for fever includes epidural abscess, pyelonephritis, cholecystitis, influenza, cellulitis, pneumonia, abscess, meningitis. - Data Points Laboratory Results: Laboratory Results 06/07/18 16:15 06/07/18 16:15 06/07/18 06/07/18 06/07/18 16:15 16:15 16:15 WBC 16.30 10^3/uL H 10^3/uL (3.80-9.50) RBC 4.62 10^6/uL 10^6/uL (4.40-6.38) Hgb 13.8 g/dL g/dL (13.7-17.5) Hct 40.9 % % (40.0-51.0) MCV 88.5 fL fL (81.5-99.8) MCH 29.9 pg pg (27.9-34.1) MCHC 33.7 g/dL g/dL (32.4-36.7) RDW 13.6 % % (11.5-15.2) Plt Count 317 10^3/uL 10^3/uL (150-400) MPV 9.6 fL fL (8.7-11.7) Neut % (Auto) 73.7 % % (39.3-74.2) Lymph % (Auto) 14.0 % L % (15.0-45.0) [place] % (Auto) 11.0 % % (4.5-13.0) Eos % (Auto) 0.7 % % (0.6-7.6) Baso % (Auto) 0.2 % L % (0.3-1.7) Nucleat RBC Rel Count 0.0 % % (0.0-0.2) Absolute Neuts (auto) 12.01 10^3/uL H 10^3/uL (1.70-6.50) Absolute Lymphs (auto) 2.28 10^3/uL 10^3/uL (1.00-3.00) Absolute Monos (auto) 1.79 10^3/uL H 10^3/uL (0.30-0.80) Absolute Eos (auto) 0.11 10^3/uL 10^3/uL (0.03-0.40) Absolute Basos (auto) 0.03 10^3/uL 10^3/uL (0.02-0.10) Absolute Nucleated RBC 0.00 10^3/uL 10^3/uL (0-0.01) Immature Gran % 0.4 % % (0.0-1.1) Immature Gran # 0.07 10^3/uL 10^3/uL (0.00-0.10) RBC/WBC/PLT Morphology TNP Platelet Estimate TNP Sodium 129 mEq/L L mEq/L (135-145) Potassium 4.3 mEq/L mEq/L (3.3-5.0) Chloride 98 mEq/L mEq/L (97-110) Carbon Dioxide 24 mEq/l mEq/l (22-31) Anion Gap 7 mEq/L L mEq/L (8-16) BUN 11 mg/dL mg/dL (7-23) Creatinine 0.6 mg/dL L mg/dL (0.7-1.3) Estimated GFR > 60 Glucose 85 mg/dL mg/dL (70-100) Calcium 9.0 mg/dL mg/dL (8.5-10.4) Total Bilirubin 0.8 mg/dL mg/dL (0.1-1.4) Conjugated Bilirubin 0.4 mg/dL mg/dL (0.0-0.5) Unconjugated Bilirubin 0.4 mg/dL mg/dL (0.0-1.1) AST 16 IU/L L IU/L (17-59) ALT 20 IU/L L IU/L (21-72) Alkaline Phosphatase 136 IU/L H IU/L (38-126) Total Protein 6.8 g/dL g/dL (6.3-8.2) Albumin 3.6 g/dL g/dL (3.5-5.0) Procalcitonin 0.10 ng/mL ng/mL (0.02-0.10) Medications Given: Acetaminophen (Tylenol) 650 mg PO Q4HRS PRN PRN Reason: Pain, Mild/Fever, Can Take PO Stop: 12/04/18 20:21 Last Admin: 06/07/18 20:50 Dose: 650 mg Discontinued Medications Ketorolac Tromethamine (Toradol) 30 mg IVP EDNOW ONE Stop: 06/07/18 17:05 Last Admin: 06/07/18 17:08 Dose: 30 mg Morphine Sulfate (Morphine) 6 mg IVP EDNOW ONE Stop: 06/07/18 18:12 Last Admin: 06/07/18 18:36 Dose: 6 mg Ondansetron HCl (Zofran) 4 mg IVP EDNOW ONE Stop: 06/07/18 18:13 Last Admin: 06/07/18 18:37 Dose: 4 mg Departure - Departure Condition: Good
[2018-06-07 17:35] LABS: PLATELET COUNT 317 10^3/uL (150-400)
[2018-06-07] MEDS ORDERED: ONDANSETRON 4 MG/2 ML VIAL IVP ONE ×2 (18:10→18:12)
[2018-06-07] MEDS ORDERED: GADOBUTROL 10 ML VIAL IVP ONE (19:10)
[2018-06-07] MEDS ORDERED: ONDANSETRON DISINTEGRATING 4 MG TAB PO PRN (20:22)
[2018-06-07] MEDS ORDERED: ONDANSETRON 4 MG/2 ML VIAL IVP PRN (20:22)
--- NOTE | 2018-06-07 20:25 | PDGENHP ---
History and Physical - Chief Complaint back pain, LLE pain - History of Present Illness 42 yo homeless male with h/o IV methamphetamine abuse and multiple sclerosis presents to ED with back pain and LLE pain. His symptoms started ~3 days ago and have progressively worsened. He denies sensory symptoms, which are typically what he experiences with MS flare. He is unable to ambulate due to pain and weakness. He denied previous fevers or chills, but spiked a temp to 38.9 in the ED. No cough, CP, SOB, abdominal or urinary symptoms. He denies redness or infectious symptoms at his previous injection sites. He continues to c/o back pain in the thoracolumbar region, more on the right side and LLE popliteal pain. In the ED, MRI brain and whole spine is ordered and pending. Neurology was consulted and will see patient in the am. History Information - Allergies/Home Medication List Allergies/Adverse Reactions: No Known Allergies Allergy (Verified 06/07/18 20:02) Home Medications: NK [No Known Home Meds] 06/07/18 [Last Taken Unknown] I have personally reviewed and updated: family history, medical history, social history, surgical history Past Medical History: see above - Past Medical History Additional medical history: Multiple sclerosis. H/O IVDA, methamphetamine - Surgical History Reports: appendectomy - Family History Positive for: non-pertinent - Social History Smoking Status: Current every day smoker Alcohol Use: None Drug Use: Other (IV meth hx. ) Additional social history: Homeless Review of Systems Review of Systems: ROS: 10pt was reviewed & negative except for what was stated in HPI & below Physical Exam Physical Exam: Temp Pulse Resp BP Pulse Ox 38.9 C H 82 20 122/80 H 97 06/07/18 19:59 06/07/18 19:59 06/07/18 19:59 06/07/18 19:59 06/07/18 19:59 O2 (L/minute) 2 Constitutional: no apparent distress Eyes: PERRL Ears, Nose, Mouth, Throat: moist mucous membranes Cardiovascular: regular rate and rhythym, no murmur, rub, or gallop Respiratory: no respiratory distress, clear to auscultation Gastrointestinal: normoactive bowel sounds, soft, non-tender abdomen Skin: warm Musculoskeletal: full muscle strength, other (LLE with tenderness in popliteal region, no obvious swelling) Neurologic: AAOx3 Psychiatric: interacting appropriately Lab Data & Imaging Review 06/07/18 16:15 06/07/18 16:15 WBC 16.30 10^3/uL (3.80-9.50) H 06/07/18 16:15 RBC 4.62 10^6/uL (4.40-6.38) 06/07/18 16:15 Hgb 13.8 g/dL (13.7-17.5) 06/07/18 16:15 Hct 40.9 % (40.0-51.0) 06/07/18 16:15 MCV 88.5 fL (81.5-99.8) 06/07/18 16:15 MCH 29.9 pg (27.9-34.1) 06/07/18 16:15 MCHC 33.7 g/dL (32.4-36.7) 06/07/18 16:15 RDW 13.6 % (11.5-15.2) 06/07/18 16:15 Plt Count 317 10^3/uL (150-400) 06/07/18 16:15 MPV 9.6 fL (8.7-11.7) 06/07/18 16:15 Neut % (Auto) 73.7 % (39.3-74.2) 06/07/18 16:15 Lymph % (Auto) 14.0 % (15.0-45.0) L 06/07/18 16:15 [place] % (Auto) 11.0 % (4.5-13.0) 06/07/18 16:15 Eos % (Auto) 0.7 % (0.6-7.6) 06/07/18 16:15 Baso % (Auto) 0.2 % (0.3-1.7) L 06/07/18 16:15 Nucleat RBC Rel Count 0.0 % (0.0-0.2) 06/07/18 16:15 Absolute Neuts (auto) 12.01 10^3/uL (1.70-6.50) H 06/07/18 16:15 Absolute Lymphs (auto) 2.28 10^3/uL (1.00-3.00) 06/07/18 16:15 Absolute Monos (auto) 1.79 10^3/uL (0.30-0.80) H 06/07/18 16:15 Absolute Eos (auto) 0.11 10^3/uL (0.03-0.40) 06/07/18 16:15 Absolute Basos (auto) 0.03 10^3/uL (0.02-0.10) 06/07/18 16:15 Absolute Nucleated RBC 0.00 10^3/uL (0-0.01) 06/07/18 16:15 Immature Gran % 0.4 % (0.0-1.1) 06/07/18 16:15 Immature Gran # 0.07 10^3/uL (0.00-0.10) 06/07/18 16:15 RBC/WBC/PLT Morphology TNP 06/07/18 16:15 Platelet Estimate TNP 06/07/18 16:15 Sodium 129 mEq/L (135-145) L 06/07/18 16:15 Potassium 4.3 mEq/L (3.3-5.0) 06/07/18 16:15 Chloride 98 mEq/L (97-110) 06/07/18 16:15 Carbon Dioxide 24 mEq/l (22-31) 06/07/18 16:15 Anion Gap 7 mEq/L (8-16) L 06/07/18 16:15 BUN 11 mg/dL (7-23) 06/07/18 16:15 Creatinine 0.6 mg/dL (0.7-1.3) L 06/07/18 16:15 Estimated GFR > 60 06/07/18 16:15 Glucose 85 mg/dL (70-100) 06/07/18 16:15 Calcium 9.0 mg/dL (8.5-10.4) 06/07/18 16:15 Visualized and Interpreted Chest x-ray results: Yes Chest X-Ray results: no infiltrate Assessment & Plan Assessment: Sepsis - source unclear, SIRS: temp, leukocytosis, HR. Reviewed MRI images with rads, no obvious epidural abscess or discitis. No murmur on exam. No obvious skin source. H/O IVDA concerning for bacteremia. -send BCx's, lactate, PCT, and start Vanc -check echo if BCx's positive, no murmur on exam -check ua, CXR -consider abdominal imaging to r/o retroperitoneal process which could present as back/flank pain -ID consult requested for am LLE popliteal pain - check LE u/s Multiple sclerosis - some concern for flare on arrival, though he has since spiked a fever with leukocytosis, which seems less c/w MS flare -brain and whole spine MRI pending -neurology consult in am, defer steroids for now due to concern for infection IVDA - pt states last used 13 days ago, then says 10 days ago. Injects into AC fossa. No obvious abscess or skin source of infection. -send drug screen -check hep C and HIV Hyponatremia - query hypovolemic -fluid restrict, NS overnight -recheck in am Full code DVT PPLX - Low risk, SCD's Dispo - admit to inpt, anticipate >48 hrs hospitalization for ongoing evaluation of sepsis etiology and MS issues. PT/OT evals requested.
[2018-06-07] MEDS ORDERED: NS 1,000 ML IV SCH (20:30)
[2018-06-07] MEDS ORDERED: ACETAMINOPHEN 325 MG TAB ONE (20:33)
[2018-06-07] MEDS: ACETAMINOPHEN 325 MG TAB PO PRN (20:50)
[2018-06-07 22:31] LABS: HEPATITIS C ANTIBODY TOTAL NEGATIVE (NEGATIVE); HIV TYPE 1 AND 2 NEGATIVE (NEGATIVE)
[2018-06-07] MEDS: VANCOMYCIN 1.25 GM in D5W 250 ML IV SCH (22:45)
[2018-06-08] MEDS: ACETAMINOPHEN 325 MG TAB PO PRN ×2 (04:52→13:46)
[2018-06-08] MEDS: HYDROmorphONE/DILAUDID 1 MG/ML INJ IVP PRN ×3 (04:53→14:58)
[2018-06-08] MEDS: KETOROLAC 15 MG/1 ML SDV IVP PRN ×2 (05:31→12:04)
[2018-06-08 05:32] LABS: PLATELET COUNT 285 10^3/uL (150-400)
[2018-06-08] MEDS: VANCOMYCIN 1.25 GM in D5W 250 ML IV SCH ×2 (10:26→22:46)
--- NOTE | 2018-06-08 10:28 | NEUROPROG ---
Assessment: [id number] - Neurology Consult: - CC: Dr. Sarah Power consulted neurology for possible MS exacerbation. Results placed in EMR for her review. - HPI: Homeless patient with history of IV methamphetamine abuse (last used 05/28/18) and multiple sclerosis presented to [facility] ER on 06/07/18 complaining of back pain and LLE pain. Symptoms started 06/04/18 and been progressive. They prevent ambulation. In the ER he developed a fever of 38.9C. He was also noted to have a sodium of 129. Brain and total spine MRI w/ and w/o con showed no enhancing lesions to suggest active demyelination. I initially saw the patient on 06/08/18. Neurologic exam showed global weakness worse in the right leg and possible discoordination in hands. I felt he likely had some form of inflammatory condition (mild infection?) that caused his fever on 06/07/18 and likely also a pseudoexacerbation of his MS. No acute enhancing lesions seen on brain/spinal MRI so no need for IV steroids. No further neurologic w/u needed. Pt can f/u with Dr. Lowe 1-4 weeks after hospital discharge. - PMHx: multiple sclerosis, H/O methamphetamine abuse, appi - Home Meds: none - SHx: +tobacco FHx: NC - ROS: Pt denied acute fever, total vision loss, active severe chest pain, respiratory failure, total body severe rash, total bowel/bladder incontinence, psychosis, active seizures, or active bleeding - O: VS reviewed General: Alert Eyes: Fundoscopic exam not able to visualize optic disks CV: Heart RRR, no murmur, no carotid bruit Lungs: Clear to auscultation bilaterally, no rhonchi or rales Neuro: - Mental: . Oriented x person/place/date . concentration appears normal . speech fluency/comprehension normal . memory appears normal . fund of knowledge appear intact - Cranial Nerves: . II: PERRL, VFFTC . III/IV/: EOMI, no nystagmus, normal smooth pursuits, no Ptosis . V: facial sensation intact to LT . VII: face symmetric to eye closure and smile . VIII: hearing intact to conversation . IX/X: uvula raises symmetrically . XI: SCM 5/5 B/L strength . XII: tongue protrudes midline w/nl strength - Motor: . Tone: normal tone in all 4 extremity . Strength: global 4+/5 weakness but right leg weaker at 4 /5 - Reflexes: B/L bic 2/4 - Sensory: all 4 extremity intact to light touch - Coord: possible discoordination in hands - Gait: deferred - Labs: 06/07/18- CBC WBC 16.3H, CMP Na 129L Anion gap 7L Cr 0.6L AST 16L ALT 20L Alk Phos 136H, UTox + for opiates and marijuana, Hep C neg, HIV 1 /2 neg - Rads: 06/07/18- Brain MRI w/ and w/o con: There are a couple right frontal white matter lesions that can be seen with demyelinating disease with the patient's history of multiple sclerosis. One lesion is slightly larger but shows no evidence for abnormal enhancement. No new white matter lesion is visualized (I personally visualized the images on 06/08/18) - 06/07/18- Cervical MRI w/ and w/o con: Evidence of demyelinating disease in the cervical cord, with stable appearance at C3-C4, with atrophy of the cervical cord, and also stable appearance of the lesion at C5-C6. No evidence for abnormal enhancement. Possible new lesion in the upper thoracic spine at the level of T2, without evidence for abnormal enhancement to suggest active demyelination. Multilevel degenerative disk and degenerative joint disease cervical spine, with a stable appearance. - 06/07/18- Thoracic MRI w/ and w/o con: Possible new demyelinating lesion thoracic spinal cord level of T2. No evidence for abnormal enhancement. Mild multilevel degenerative disk disease mid thoracic spine. Small left parasagittal protrusion at T6-T7 is stable in appearance. Stable mild anterior wedge compression deformity T7. - 06/07/18- Lumbar MRI w/ and w/o con: Mild degenerative disk disease at L4-L5, with a new small left parasagittal protrusion , with slight left lateral recess narrowing. - Assessment: 1. Back and LLE pain in setting of Multiple Sclerosis on 06/07/18: Homeless patient with history of IV methamphetamine abuse (last used 05/28/18) and multiple sclerosis presented to [facility] ER on 06/07/18 complaining of back pain and LLE pain. Symptoms started 06/04/18 and been progressive. They prevent ambulation. In the ER he developed a fever of 38.9C. He was also noted to have a sodium of 129. Brain and total spine MRI w/ and w/o con showed no enhancing lesions to suggest active demyelination. I initially saw the patient on 06/08/18. Neurologic exam showed global weakness worse in the right leg and possible discoordination in hands. I felt he likely had some form of inflammatory condition (mild infection?) that caused his fever on 06/07/18 and likely also a pseudoexacerbation of his MS. No acute enhancing lesions seen on brain/spinal MRI so no need for IV steroids. No further neurologic w/u needed. Pt can f/u with Dr. Lowe 1-4 weeks after hospital discharge. - 2. Fever, Hyponatremia, methamphetamine abuse: I suspect a recent infection, hyponatremia, or possibly his methamphetamine abuse is causing a pseudo exacerbation of prior symptoms from multiple sclerosis. Treatment would be aimed at addressing the underlying conditions. - 3. Degenerative changes on spinal MRI: No severe changes but these findings may be involved with his back pain. If his back pain is controlled enough for discharge I would recommend he f/u with his PCM for outpatient management to likely include physical therapy as the first step. - Plan: - Hospitalist ensuring no infection and addressing hyponatremia - Recommend no longer using methamphetamine - No IV steroids needed as no enhancing lesion seen on brain/spine MRI and possible infection - PT/OT/Speech to determine any rehab needs - F/U with Dr. Lowe in neurology clinic 1-4 weeks after hospital discharge - No further neurologic w/u needed at this time, neurology will sign off Objective: Vital Signs Temp Pulse Resp BP Pulse Ox 37.4 C 67 16 105/67 95 06/08/18 07:32 06/08/18 07:32 06/08/18 07:32 06/08/18 07:32 06/08/18 07:32 Laboratory Results 06/08/18 05:20 06/08/18 05:20 06/07/18 06/08/18 06/09/18 05:59 05:59 05:59 Intake Total 1260 Output Total 0102 450 Balance 185 -450 Allergies/Adverse Reactions: No Known Allergies Allergy (Verified 06/07/18 20:02)
--- NOTE | 2018-06-08 11:48 | HOSPPROG ---
Hospitalist Progress Note Assessment/Plan: *Sepsis:source unclear, *SIRS: temp, leukocytosis, HR. -H/O IVDA concerning for bacteremia -bd cx pending -discussed care with ID, continue vanco LLE popliteal pain - US neg Multiple sclerosis - some concern for flare on arrival -appreciate neurology consult -not recommending steroids at this time -PT/OT IVDA - No obvious abscess or skin source of infection. -neg hep C and HIV Hyponatremia -mild -IVF Anemia -dilutional -check in AM for stability Homelessness -CM to assist with dispo planning Full code DVT prophy - Low risk, SCD's Dispo - admit to inpt, anticipate >48 hrs hospitalization for ongoing evaluation of sepsis etiology and MS issues. PCP Subjective: He is in pain in wrists/arms/back. he thinks this is an MS flare. Denies IV use in last few weeks. No v/d/abd pain/SOB/CP. Objective: Vital Signs Temp Pulse Resp BP Pulse Ox 99.5 F 89 18 118/73 94 06/08/18 11:35 06/08/18 11:35 06/08/18 11:35 06/08/18 11:35 06/08/18 11:35 Laboratory Results 06/08/18 05:20 06/08/18 05:20 06/06/18 06/07/18 06/08/18 11:59 11:59 11:59 Intake Total 1260 Output Total 1525 Balance -265 - Time Spent With Patient Time Spent with Patient: greater than 35 minutes Time Spent with Patient: Greater than 35 minutes spent on this patients care, greater than 50% of time spent counseling, educating, and coordinating care regarding the above mentioned plan. - Physical Exam Constitutional: unkempt Eyes: anicteric sclera, EOMI Ears, Nose, Mouth, Throat: moist mucous membranes, hearing normal Cardiovascular: regular rate and rhythym, No edema Respiratory: no respiratory distress, no rales or rhonchi, clear to auscultation Gastrointestinal: normoactive bowel sounds, soft, non-tender abdomen, no palpable masses, No guarding, No rebound, No distension Skin: warm, other (no obvious cellulitis or tracks noted on arms/legs) Psychiatric: interacting appropriately, not encephalopathic ICD10 Worksheet Patient Problems: Problems Problem Status Onset Arthralgia Acute Depression Acute Homeless Acute Multiple sclerosis exacerbation Acute
--- NOTE | 2018-06-08 12:08 | ASMTCMCOM ---
CM Note CM Note Notes: Spoke with pt, he is a homeless man with a hx of MS. He admits to using IV meth but stats has been "clean" for about 10 days. Pt has daughter that lives with his sister but staying with family is not an option. He states he has been staying outside and sometimes at assisted. PT/OT to evaluate for dc needs, he has been to rehab in the past but admits to "bad behavior". Although says now he is clean. DC Plan: TBD Date Signed: 06/08/2018 12:07 PM Electronically Signed By:Juanis Hernandez RN
[2018-06-08] MEDS: METHOCARBAMOL 750 MG TAB PO PRN ×2 (13:46→21:41)
--- NOTE | 2018-06-08 13:46 | PDMN ---
Medical Necessity Medical necessity: Change to IP, as of 06/08/18, per MD & MCG M-160; los >2 mn for ongoing management of sepsis of unknown origin, LLE/back pain w/weakness & difficulty ambulating; admit for further workup/monitoring, ID consult, IVFs, IV abx, pain management & therapies; comorbid MS, IV drug use & homelessness
--- NOTE | 2018-06-08 14:33 | GCON ---
[f rep st] CONSULTATION INPATIENT INFECTIOUS DISEASE CONSULTATION REFERRING PHYSICIAN: Sasha De MD REASON FOR REFERRAL: Fever, history of injection drug use. HISTORY OF PRESENT ILLNESS: Patient is a 42-year-old male with known multiple sclerosis, who is also incidentally an injecting methamphetamine user, whose admitted last use was a couple of months ago. The patient states that he was in his usual state of health when he began to have symptoms of increa sed back pain and left lower extremity pain about 3 days ago. This has progressively worsened over t hat period of time. The patient did not have any fevers or chills, but ended up spiking a fever to 3 9 degrees Celsius while in the emergency room. The patient denies any other localizing symptoms. Th e patient was placed empirically on vancomycin. Blood cultures so far are not growing anything. Sym ptoms have not significantly changed from predominantly back and left lower extremity pain. Workup w ith imaging of the brain and spinal cord reveals demyelinating lesions, but nothing significantly new . PAST MEDICAL HISTORY: 1. Multiple sclerosis. 2. Methamphetamine use. PAST SURGICAL HISTORY: None noted. ANTIBIOTICS: Vancomycin. ALLERGIES: The patient has no known drug allergies. SOCIAL HISTORY: The patient is homeless. He is a current tobacco user. No alcohol use. Does admit to IV meth use. FAMILY HISTORY: Reviewed but noncontributory. REVIEW OF SYSTEMS: Other than that detailed above in History of Present Illness, a comprehensive 10- system review is negative. PHYSICAL EXAMINATION: VITAL SIGNS: Temperature maximum is 38.9. Temperature current is 37.5. Hear t rate is 89. Respiratory rate is 18. Blood pressure is 118/73. GENERAL: The patient is a well-fo rmed, well-nourished male in no acute distress. Not toxic in appearance. He is alert and oriented x 3. He has a pleasant demeanor. HEENT: Normocephalic for age. Atraumatic. No scleral icterus. No oral lesion or drainage from the nares. Eyes, lids and conjunctivae are within normal limits. Pupi ls are equal and round bilaterally. NECK: Supple. No meningismus. LUNGS: Clear to auscultation b ilaterally with good effort. HEART: Regular rate and rhythm. No murmur, rub, or gallop heard. No significant peripheral edema. SKIN: Warm and dry to the touch. No rash or lesion noted. MUSCULOSK ELETAL: No muscle belly tenderness is noted. No joint line effusion or arthritis seen. NEURO: [employer] nial nerves 2-12 seem to be intact. Peripheral sensation seems intact in extremities. LABORATORY DATA: The patient has a CBC dated 06/08/2018, shows a white blood cell count of 16.4, hem oglobin of 12.1, hematocrit of 35.2, and a platelet count of 285. Differential is left-shifted with 12% segmented neutrophils. Serum chemistries on 06/08/2018 show a sodium of 130, potassium of 4.2, c hloride of 103, bicarbonate of 24, BUN of 9, and creatinine of 0.6. AST from 06/07 is 16. ALT is 20 . Urinalysis on 06/07 shows 3-5 red cells and 1-3 white cells per high-power field. Tox screen from the emergency room on 06/07/2018 shows a non-negative opiate screen and non-negative marijuana scree n. HIV antibody testing is negative. MICROBIOLOGIC DATA: Patient has blood cultures dated 06/07/2018, which are pending. ASSESSMENT: Fever with increased back pain. No evidence on MRI scanning of a focal inflammatory les ion. We will continue to monitor blood cultures. At this point, given his risk factors for skin and soft tissue disease, as well as bloodstream infection secondary to history of drug use, we will cont inue the vancomycin monotherapy and monitor. PLAN: 1. Continue vancomycin. 2. Follow blood cultures, temp curve and clinical condition. /[id number]/MODL
[2018-06-08] MEDS: traMADol 50 MG TAB PO PRN ×2 (16:47→22:46)
[2018-06-08] MEDS: ACETAMINOPHEN 325 MG TAB PO SCH ×2 (17:45→22:57)
[2018-06-08] MEDS: KETOROLAC 15 MG/1 ML SDV IVP SCH (22:57)
[2018-06-09] MEDS: traMADol 50 MG TAB PO PRN ×4 (04:42→23:58)
[2018-06-09] MEDS: ACETAMINOPHEN 325 MG TAB PO SCH ×4 (06:03→23:58)
[2018-06-09] MEDS: KETOROLAC 15 MG/1 ML SDV IVP SCH ×4 (06:03→23:57)
[2018-06-09] MEDS: METHOCARBAMOL 750 MG TAB PO PRN ×2 (06:03→21:46)
--- NOTE | 2018-06-09 08:22 | HOSPPROG ---
Hospitalist Progress Note Assessment/Plan: Patient is a 42-year-old male with MS who also injects methamphetamines. He was in his usual state of health when he started having increased back pain and left lower extremity pain approximately 3 days prior to his admission. He also had a fever. Today is my 1st encounter with the patient. Chart reviewed. Reviewed his care with Dr Duncan *Sepsis:source unclear -possibly left calf area *SIRS: temp, leukocytosis, HR. -H/O IVDA concerning for bacteremia -bd cx pending -discussed care with ID, continue vanco + Zosyn added *LLE popliteal pain - US neg -concerned he was shooting meth there, says he has been clean for two weeks and smokes meth, denies injection -patient states he may of accidentally had a needle hit him there from his backpack *Multiple sclerosis - some concern for flare on arrival -appreciate neurology consult -not recommending steroids at this time -PT/OT -symptoms should improve with treatment of an infeciton *IVDA - -neg hep C and HIV -patient said he smokes meth and doesn't use IV meth *Hyponatremia -mild *Anemia -dilutional *Homelessness -CM to assist with dispo planning -[facility] -patient had a place to live but said his room mate had been trying to give him meth when he didn't want it Full code DVT prophy - Low risk, SCD's *Plan: continued treatment as above Subjective: Alfie said his left calf is tender. Objective: Vital Signs Temp Pulse Resp BP Pulse Ox 37.3 C 104 H 16 108/68 94 06/09/18 07:27 06/09/18 07:27 06/09/18 07:27 06/09/18 07:27 06/09/18 07:27 06/08/18 06/09/18 06/10/18 05:59 05:59 05:59 Intake Total 2150 Output Total 2100 250 Balance 50 -250 - Physical Exam Constitutional: appears nourished, chronically ill appearing Eyes: PERRL Ears, Nose, Mouth, Throat: hearing normal Cardiovascular: regular rate and rhythym, no murmur, rub, or gallop Respiratory: no respiratory distress Gastrointestinal: normoactive bowel sounds Skin: warm, other (left calf upto knee area with swelling, warmth noted below the knee area) Musculoskeletal: generalized weakness Neurologic: AAOx3 Psychiatric: interacting appropriately ICD10 Worksheet Patient Problems: Problems Problem Status Onset Arthralgia Acute Depression Acute Homeless Acute Multiple sclerosis exacerbation Acute
[2018-06-09] MEDS: VANCOMYCIN 1.25 GM in D5W 250 ML IV SCH ×2 (11:16→22:47)
--- NOTE | 2018-06-09 12:28 | PCMIDPN ---
Assessment/Plan: Assessment: Continued fevers with consolidation of pain and induration and redness and warmth behind the right knee and right upper calf. Patient currently is on vancomycin will add Zosyn to the regimen given the wide variety of pathogens that could be introduced from needle injection. Patient does not directly admit to needle injection in the area although he notes that he could of accidentally stuck himself in his leg through his backpack. Plan: 1. Continue IV vancomycin. 2. Start IV Zosyn 3.375 g Q 6 hr. 3. Monitor the appearance of the indurated area on his right calf. 4. Monitor temp curve. 06/09/18 12:24 Subjective: Patient is doing fairly well this morning. Notes that all night he had cycling of fevers and chills and sweats. Also notes in the last 24 hr that the area behind his right knee and upper calf is become more hard and red and warm. Objective: Vancomycin # 2 Vital Signs Temp Pulse Resp BP Pulse Ox 37.2 C 109 H 15 121/81 H 99 06/09/18 11:56 06/09/18 11:56 06/09/18 11:56 06/09/18 11:56 06/09/18 11:56 06/08/18 06/09/18 06/10/18 05:59 05:59 05:59 Intake Total 2150 300 Output Total 2100 250 Balance 50 50 - Physical Exam General Appearance: WD/WN, alert, no apparent distress, toxic (Mildly) Respiratory: lungs clear, normal breath sounds, No respiratory distress Cardiac/Chest: regular rate, rhythm, No tachycardia Extremities: calf tenderness, swelling, erythema, No non-tender, No necrosis Skin: normal color, warm/dry, No rash Neuro/Psych: alert, normal mood/affect, oriented x 3 ICD10 Worksheet Patient Problems: Problems Problem Status Onset Arthralgia Acute Depression Acute Homeless Acute Multiple sclerosis exacerbation Acute
[2018-06-09] MEDS: PIPERACILLIN/TAZO 3.375 GM/DEX 50 ML IV SCH ×2 (12:42→18:17)
--- NOTE | 2018-06-09 16:57 | ASMTCMCOM ---
CM Note CM Note Notes: CM met with patient, shares he is not sure if he is active with LTC Medicaid. He shared he has been to [facility] and [facility] in the past, at [facility] he was discharged b/c they found a torch and pipe and thought he was using meth, states he is not using now. Patient states he has not used for about 10 days, CM asked how this is for him, he states painful as he explains meth was how he was treating pain and was tearful when sharing he has stay sober or he is going to lose his mind. He shares he has a public health service officer, gives permission for CM to call Elin Skinner [phone]. CM lm with this P.O. to inquire about possible housing option/[facility] asked for a call back to [phone] to see if this is an option. Patient shares he does not have a PCP, he sees Dr. Robert Lowe for Neuro, this provider has given patient a rx/order for a wheelchair. CM encouraged patient to f/u with this provider after discharge to address this issue. CM inquired about MH care, he is not connected to any MH services, he believes he has Schizophrenia dx and is not being treated. He currently receives SSI/SSDI for MS, he is payee. CM gave patient [facility] info packet and wrote Medicaid ID number on back of card. Patient is interested in LTC Medicaid referral, CM explained this may not lead to placement as availability is limited. CM to send email to Karla for LTC referral. Discharge date TBD at this time. CM to follow. Current D/C plan: TBD. Date Signed: 06/09/2018 04:56 PM Electronically Signed By:Rhea Craft
[2018-06-10] MEDS: PIPERACILLIN/TAZO 3.375 GM/DEX 50 ML IV SCH ×4 (00:53→18:09)
[2018-06-10] MEDS: KETOROLAC 15 MG/1 ML SDV IVP SCH ×3 (05:59→18:06)
[2018-06-10] MEDS: ACETAMINOPHEN 325 MG TAB PO SCH ×3 (05:59→18:14)
[2018-06-10] MEDS: traMADol 50 MG TAB PO PRN (09:21)
[2018-06-10] MEDS: VANCOMYCIN 1.25 GM in D5W 250 ML IV SCH ×2 (10:17→10:51)
--- NOTE | 2018-06-10 10:49 | PCMIDPN ---
Assessment/Plan: 1. Severe cellulitis left lower extremity in PWID: Patient continues to be febrile with extensive cellulitis in the popliteal fossa , extending to the lower extremity. Will obtain MRI to rule out underlying abscess/pyomyositis, necrotizing fasciitis or septic arthritis of the knee. The patient admitted that he sucked on his needle, and spit into the syringe to try in get the meth rock to dissolve, then injected this into his popliteal fossa, raising concern for a polymicrobial process with oral ruiz. Given subtherapeutic vancomycin levels, will discontinue vancomycin and start daptomycin. Check CK prior to initiation of daptomycin. Continue Pip/tazo for now to cover g negatives and oral ruiz, although suspect this can be modified to something like ertapenem or Unasyn moving forward. 2. Injection drug use: Hepatitis-C antibody and HIV antibody negative. Will obtain hepatitis B and a serologies. He is at risk for hepatitis-B in the setting of injection drug use , and hepatitis a in the setting of homelessness. Long conversation with patient today regarding harm reduction tactics, including regular showers, wiping down the injection site with an alcohol swab, and not licking his works/ spitting into syringes. He always uses clean needles. Tdap 7 years ago. Patient was quite tearful during this conversation today, and is interested in treatment programs. Will also reach out to social work. Over 35 min was spent with this patient today. Subjective: Long conversation with patient today. I explained to the patient at length that we cannot help him unless we really know what happened to him, as he continues to have severe pain, worsening redness and swelling behind his left knee, extending into the leg. The patient then asked the nurse to step out, became quite tearful with me, and admitted that he got a 20 rock of methamphetamine on Monday night. He states he always uses clean needles. He tried to dissolve the rock, but it was not 100% dissolved. Therefore, he spit into the syringe and sucked on the needle prior to injecting it into his left popliteal fossa. States that has injected here before. He does not use alcohol wipes, and states that he only showers intermittently. He denies a history of MRSA. He states that after he did this, he noted some discomfort in his knee. Again, explained to the patient that this is an addiction, and not his fault. Spent quite some time talking about harm reduction with him moving forward. He understands that his care team needs to be informed of this new information. Objective: Vital Signs Vancomycin 1.25 g IV q.12 hours day 3 Pipracil in/tazobactam 3.375 g IV q.6 hours day 0 T-max 39.3 degrees Temp Pulse Resp BP Pulse Ox 37.2 C 92 15 99/64 L 94 06/10/18 08:00 06/10/18 08:00 06/10/18 08:00 06/10/18 08:00 06/10/18 08:00 06/09/18 06/10/18 06/11/18 05:59 05:59 05:59 Intake Total 2150 1750 Output Total 2100 1200 200 Balance 50 550 -200 Blood cultures June 07 no growth - Physical Exam General Appearance: alert, no apparent distress EENT: pharynx normal, No thrush Respiratory: lungs clear Cardiac/Chest: regular rate, rhythm, No systolic murmur Extremities: other (Left popliteal fossa swollen and quite tender. Patient has an area of erythema that extends slightly above the popliteal fossa, into the popliteal fossa and down into the posterior aspect of his left lower extremity. Calf is also tender, but the most tenderness is behind the knee. There is some swelling here that is notable compared to the right.) Abdomen: non-tender, soft Skin: other (Cannot appreciate any track gomez on his arms.), No rash, No embolic lesions ICD10 Worksheet Patient Problems: Problems Problem Status Onset Arthralgia Acute Depression Acute Homeless Acute Multiple sclerosis exacerbation Acute
[2018-06-10] MEDS: DAPTOmycin 500 MG in NS 100 ML IV SCH (11:55)
[2018-06-10 12:34] LABS: CREATINE KINASE 24 IU/L (0-224)
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
[2018-06-10] MEDS ORDERED: GADOBUTROL 10 ML VIAL IVP ONE (13:48)
--- NOTE | 2018-06-10 14:30 | ASMTCMCOM ---
CM Note CM Note Notes: Referrals sent out to SNF's. 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 Date Signed: 06/10/2018 02:29 PM Electronically Signed By:June La LCSW
[2018-06-10] MEDS: METHOCARBAMOL 750 MG TAB PO PRN (16:39)
--- NOTE | 2018-06-10 19:36 | HOSPPROG ---
Hospitalist Progress Note Assessment/Plan: MRI w subcutaneous air and myositis exam w severe calf pain w flexion/extension of foot or toes indicative of tendon and muscle involvement mr reviewed w dr diaz case d/w w dr rabago scenario concerning for necrotizing fasciitis to OR this PM 40' crit care Objective: Vital Signs Temp Pulse Resp BP Pulse Ox 37.5 C 107 H 16 111/67 95 06/10/18 16:00 06/10/18 16:00 06/10/18 16:00 06/10/18 16:00 06/10/18 16:00 06/09/18 06/10/18 06/11/18 05:59 05:59 05:59 Intake Total 2150 1750 540 Output Total 2100 1200 425 Balance 50 550 115 ICD10 Worksheet Patient Problems: Problems Problem Status Onset Arthralgia Acute Depression Acute Homeless Acute Multiple sclerosis exacerbation Acute
[2018-06-10] MEDS ORDERED: NS 1,000 ML IV SCH (19:45)
--- NOTE | 2018-06-10 19:48 | PDGENHP ---
History and Physical - Chief Complaint left leg infection, concern for nec fasc - History of Present Illness 42yo M c MS, IVDU presents with LLE pain. [place], has been here since the and has been on antibiotics since then. Pain has worsened, clinical exam has worsened, WBC persists. MR earlier today showed gas within the tissues and the leg is exquisitely tender to touch. He c/o severe pain to the posterior LLE, any movement of the LLE worsens the pain. The distal foot is swollen, distal pulses are intact. Has only used IV drugs for a few months, injected the area a week or so ago, was attemtping to hit the vein, missed. History Information - Allergies/Home Medication List Allergies/Adverse Reactions: No Known Allergies Allergy (Verified 06/07/18 20:02) Home Medications: NK [No Known Home Meds] 06/07/18 [Last Taken Unknown] I have personally reviewed and updated: family history, medical history, social history, surgical history Past Medical History: MS, IVDU - Past Medical History Additional medical history: Multiple sclerosis. H/O IVDA, methamphetamine - Surgical History Reports: appendectomy - Family History Positive for: non-pertinent - Social History Smoking Status: Current every day smoker Alcohol Use: None Drug Use: Other (IV meth hx. ) Additional social history: Homeless Review of Systems Review of Systems: ROS: 10pt was reviewed & negative except for what was stated in HPI & below Physical Exam Physical Exam: Temp Pulse Resp BP Pulse Ox 37.5 C 107 H 16 111/67 95 06/10/18 16:00 06/10/18 16:00 06/10/18 16:00 06/10/18 16:00 06/10/18 16:00 Constitutional: no apparent distress, appears nourished, not in pain Eyes: PERRL, anicteric sclera, EOMI Ears, Nose, Mouth, Throat: moist mucous membranes, hearing normal, ears appear normal, no oral mucosal ulcers Cardiovascular: regular rate and rhythym, no murmur, rub, or gallop, No edema Respiratory: no respiratory distress, no rales or rhonchi, clear to auscultation Gastrointestinal: normoactive bowel sounds, soft, non-tender abdomen, no palpable masses Genitourinary: no bladder fullness, no bladder tenderness Skin: other (LLE: calf exquisetly tender and warm, no crepitus, poss fluctuance. ), No mottled Musculoskeletal: full muscle strength, no muscle tenderness, normal joint ROM, no joint effusions Psychiatric: interacting appropriately, not anxious, not encephalopathic, thought process linear Lymph, Heme, Immunologic: no cervical LAD, no supraclavicular LAD Lab Data & Imaging Review 06/08/18 05:20 06/08/18 05:20 WBC 16.44 10^3/uL (3.80-9.50) H 06/08/18 05:20 RBC 4.00 10^6/uL (4.40-6.38) L 06/08/18 05:20 Hgb 12.1 g/dL (13.7-17.5) L 06/08/18 05:20 Hct 35.2 % (40.0-51.0) L 06/08/18 05:20 MCV 88.0 fL (81.5-99.8) 06/08/18 05:20 MCH 30.3 pg (27.9-34.1) 06/08/18 05:20 MCHC 34.4 g/dL (32.4-36.7) 06/08/18 05:20 RDW 13.5 % (11.5-15.2) 06/08/18 05:20 Plt Count 285 10^3/uL (150-400) 06/08/18 05:20 MPV 8.5 fL (8.7-11.7) L 06/08/18 05:20 Neut % (Auto) Not Reported 06/08/18 05:20 Lymph % (Auto) Not Reported 06/08/18 05:20 Forrest % (Auto) Not Reported 06/08/18 05:20 Eos % (Auto) Not Reported 06/08/18 05:20 Baso % (Auto) Not Reported 06/08/18 05:20 Nucleat RBC Rel Count Not Reported 06/08/18 05:20 Absolute Neuts (auto) Not Reported 06/08/18 05:20 Absolute Lymphs (auto) Not Reported 06/08/18 05:20 Absolute Monos (auto) Not Reported 06/08/18 05:20 Absolute Eos (auto) Not Reported 06/08/18 05:20 Absolute Basos (auto) Not Reported 06/08/18 05:20 Absolute Nucleated RBC Not Reported 06/08/18 05:20 Immature Gran % Not Reported 06/08/18 05:20 Seg Neutrophils % 67.0 % 06/08/18 05:20 Band Neutrophils % 11.7 % 06/08/18 05:20 Lymphocytes % 11.6 % 06/08/18 05:20 Monocytes % 6.8 % 06/08/18 05:20 Eosinophils % 2.9 % 06/08/18 05:20 Basophils % 0 % 06/08/18 05:20 Metamyelocytes % 0 % 06/08/18 05:20 Myelocytes % 0 % 06/08/18 05:20 Promyelocytes % 0 % 06/08/18 05:20 Blast Cells % 0 % 06/08/18 05:20 Immature Gran # Not Reported 06/08/18 05:20 Absolute Seg Neuts 11.01 10^/uL (1.70-6.50) H 06/08/18 05:20 Absolute Band Neuts 1.92 10^3/uL (0.00-0.70) H 06/08/18 05:20 Absolute Lymphocytes 1.91 10^3/uL (1.00-3.00) 06/08/18 05:20 Absolute Monocytes 1.12 10^3/uL (0.30-0.80) H 06/08/18 05:20 Absolute Eosinophils 0.48 10^3/uL (0.03-0.40) H 06/08/18 05:20 Absolute Basophils 0.00 10^3/uL (0.02-0.10) L 06/08/18 05:20 Absolute Metamyelocyte 0.00 10^3/mL (0.00-0.00) 06/08/18 05:20 Absolute Myelocytes 0.00 10^3/mL (0.00-0.00) 06/08/18 05:20 Absolute Promyelocytes 0.00 10^3/uL (0.00-0.00) 06/08/18 05:20 Absolute Plasma Cells 0.00 10^3/uL (0.00-0.00) 06/08/18 05:20 Nucleated RBCs 0 /100 WBC (0-0) 06/08/18 05:20 Differential Comment NONE 06/08/18 05:20 RBC/WBC/PLT Morphology TNP 06/07/18 16:15 Absolute Blast Cells 0.00 10^3/uL (0.00-0.00) 06/08/18 05:20 Plasma Cells % 0 % 06/08/18 05:20 Platelet Estimate ADEQUATE (ADEQ) 06/08/18 05:20 VBG Lactic Acid 1.4 mmol/L (0.7-2.1) 06/07/18 20:40 Sodium 130 mEq/L (135-145) L 06/08/18 05:20 Potassium 4.2 mEq/L (3.3-5.0) 06/08/18 05:20 Chloride 103 mEq/L (97-110) 06/08/18 05:20 Carbon Dioxide 24 mEq/l (22-31) 06/08/18 05:20 Anion Gap 3 mEq/L (8-16) L 06/08/18 05:20 BUN 9 mg/dL (7-23) 06/08/18 05:20 Creatinine 0.6 mg/dL (0.7-1.3) L 06/08/18 05:20 Estimated GFR > 60 06/08/18 05:20 Glucose 106 mg/dL (70-100) H 06/08/18 05:20 Calcium 8.5 mg/dL (8.5-10.4) 06/08/18 05:20 Total Bilirubin 0.8 mg/dL (0.1-1.4) 06/07/18 16:15 Conjugated Bilirubin 0.4 mg/dL (0.0-0.5) 06/07/18 16:15 Unconjugated Bilirubin 0.4 mg/dL (0.0-1.1) 06/07/18 16:15 AST 16 IU/L (17-59) L 06/07/18 16:15 ALT 20 IU/L (21-72) L 06/07/18 16:15 Alkaline Phosphatase 136 IU/L (38-126) H 06/07/18 16:15 Creatine Kinase 24 IU/L (0-224) 06/10/18 11:00 Total Protein 6.8 g/dL (6.3-8.2) 06/07/18 16:15 Albumin 3.6 g/dL (3.5-5.0) 06/07/18 16:15 Procalcitonin 0.10 ng/mL (0.02-0.10) 06/07/18 16:15 Urine Color YELLOW 06/07/18 21:45 Urine Appearance CLEAR 06/07/18 21:45 Urine pH 6.0 (5.0-7.5) 06/07/18 21:45 Ur Specific [place] 1.025 (1.002-1.030) 06/07/18 21:45 Urine Protein NEGATIVE (NEGATIVE) 06/07/18 21:45 Urine Ketones NEGATIVE (NEGATIVE) 06/07/18 21:45 Urine Blood 1+ (NEGATIVE) H 06/07/18 21:45 Urine Nitrate NEGATIVE (NEGATIVE) 06/07/18 21:45 Urine Bilirubin NEGATIVE (NEGATIVE) 06/07/18 21:45 Urine Urobilinogen 2.0 EU (0.2-1.0) H 06/07/18 21:45 Ur Leukocyte Esterase NEGATIVE (NEGATIVE) 06/07/18 21:45 Urine RBC 3-5 /hpf (0-3) H 06/07/18 21:45 Urine WBC 1-3 /hpf (0-3) 06/07/18 21:45 Ur Epithelial Cells NONE SEEN /lpf (NONE-1+) 06/07/18 21:45 Urine Mucus TRACE /lpf (NONE-1+) 06/07/18 21:45 Urine Glucose NEGATIVE (NEGATIVE) 06/07/18 21:45 Vancomycin Trough < 5.0 mcg/mL (5.0-20.0) L 06/09/18 10:00 Urine Opiates Screen NON-NEGATIVE (NEGATIVE) H 06/07/18 21:45 Urine Barbiturates NEGATIVE (NEGATIVE) 06/07/18 21:45 Ur Phencyclidine Scrn NEGATIVE (NEGATIVE) 06/07/18 21:45 Ur Amphetamine Screen NEGATIVE (NEGATIVE) 06/07/18 21:45 U Benzodiazepines Scrn NEGATIVE (NEGATIVE) 06/07/18 21:45 Urine Cocaine Screen NEGATIVE (NEGATIVE) 06/07/18 21:45 U Marijuana (THC) Screen NON-NEGATIVE (NEGATIVE) H 06/07/18 21:45 Hepatitis C Antibody NEGATIVE (NEGATIVE) 06/07/18 20:40 HIV 1&2 Antibody NEGATIVE (NEGATIVE) 06/07/18 20:40 Visualized and Interpreted imaging results: Yes Interpretation: MRI leg: gas within the subq tissues, myositis and abcess Assessment & Plan Assessment: abscess concerning for NSTI Plan: Patient has been on broad spectrum abx with no improvement, actually has worsened - my recommendation was OR for debridement, he is in agreement. - RBA discussed. Will send Cx
[2018-06-10] MEDS ORDERED: BUPIVACAINE 0.25% 30 ML SDV ONE (20:03)
[2018-06-10] MEDS ORDERED: LR 1,000 ML IV ONE (20:19)
[2018-06-10] MEDS ORDERED: fentaNYL 100 MCG/2 ML INJ ONE (20:29)
[2018-06-10] MEDS ORDERED: PROPOFOL 200 MG/20 ML VIAL ONE (20:29)
[2018-06-10] MEDS ORDERED: ROCURONIUM 50 MG/5 ML VIAL ONE (20:29)
[2018-06-10] MEDS ORDERED: HYDROmorphONE/DILAUDID 2 MG/ML INJ ONE (20:41)
[2018-06-10] MEDS ORDERED: DEXAMETHASONE 4 MG/ML VIAL ONE (20:47)
[2018-06-10] MEDS ORDERED: ONDANSETRON 4 MG/2 ML VIAL ONE (20:47)
[2018-06-10] MEDS ORDERED: PHENYLEPHRINE HCL 100 MCG/ML SYR ONE (20:47)
[2018-06-10] MEDS ORDERED: BACITRACIN 50,000 UNITS/10 ML SYR IRR ONE (20:48)
[2018-06-10] MEDS ORDERED: SODIUM HYPOCHLORITE (DAKINS 1/4 STR) 473 ML BTL TP ONE (21:30)
[2018-06-10] MEDS ORDERED: NALOXONE HCL 0.4 MG/ML INJ IVP PRN (21:45)
[2018-06-10] MEDS ORDERED: oxyCODONE IR 5 MG TAB PO PRN (21:45)
[2018-06-10] MEDS ORDERED: ONDANSETRON 4 MG/2 ML VIAL IVP PRN (21:45)
[2018-06-10] MEDS ORDERED: ALBUTEROL 3 ML DEYVIAL IH PRN (21:45)
[2018-06-10] MEDS ORDERED: fentaNYL 100 MCG/2 ML INJ IVP PRN (21:45)
[2018-06-10] MEDS ORDERED: HYDROmorphONE/DILAUDID 1 MG/ML INJ IVP PRN (21:45)
--- NOTE | 2018-06-10 21:46 | POSTOPPROG ---
Post Op Note Date of Operation: 06/10/18 Surgeon: Sage Sales Anesthesiologist: Emily Anesthesia: GET(General Endotracheal) Pre-op Diagnosis: NSTI LLE Post-op Diagnosis: NSTI LLE Procedure: Incision and drainage LLE c resection necrotic tissue Findings: necrotic fascia/muscle, c/w nec fasc Inf/Abcess present in the surg proc area at time of surgery?: Yes Depth: Deep Incisional (Fascial) EBL: 50-100 Total fluids administered: 3000L NS washout c bacitracin Specimen(s): fascia, fluid and muscle sent for Cx and path
--- NOTE | 2018-06-10 21:46 | PDANEPAE ---
ANE History of Present Illness L Leg I&D ANE Past Medical History - Cardiovascular History Hx Hypertension: No Hx Arrhythmias: No - Pulmonary History Hx Oxygen in Use at Home: No Hx Sleep Apnea: No Sleep Apnea Screening Result - Last Documented: Negative - Endocrine History Hx Diabetes: No - Chronic Pain History Chronic Pain: No ANE Review of Systems Review of Systems: ANE Patient History - Allergies Allergies/Adverse Reactions: No Known Allergies Allergy (Verified 06/07/18 20:02) - Home Medications Home Medications: NK [No Known Home Meds] 06/07/18 [Last Taken Unknown] - NPO status NPO Since - Liquids (Date): 06/10/18 NPO Since - Liquids (Time): 18:15 NPO Since - Solids (Date): 06/10/18 NPO Since - Solids (Time): 18:15 - Smoking Hx Smoking Status: Current every day smoker - Alcohol Use Alcohol Use: None ANE Labs/Vital Signs - Labs Result Diagrams: 06/08/18 05:20 06/08/18 05:20 - Vital Signs Blood Pressure: 111/67 Heart Rate: 107 Respiratory Rate: 16 O2 Sat (%): 95 Height: 185.42 cm Weight: 83.2 kg ANE Physical Exam - Airway Neck exam: FROM Mallampati Score: Class 2 - Pulmonary Pulmonary: clear to auscultation - Cardiovascular Cardiovascular: regular rate and rhythym - ASA Status ASA Status: II, E ANE Anesthesia Plan Anesthesia Plan: general endotracheal anesthesia
--- NOTE | 2018-06-10 21:47 | POSTANESTH ---
Post Anesthetic Evaluation Cardiovascular Status: Normal, Stable Respiratory Status: Normal, Stable Level of Consciousness/Mental Status: Can Participate in Eval, Alert and Oriented Pain Control: Adequate, Prn Tx Ordered Nausea/Vomiting Control: Adequate, Prn Tx Ordered Complications Possibly Related to Anesthesia: None Noted
--- NOTE | 2018-06-10 22:44 | GOP ---
[f rep st] OPERATIVE REPORT DATE OF OPERATION: 06/10/2018 SURGEON: Sage Sales MD FACING CUTTING MACHINE OPERATOR: None. ANESTHESIA: General endotracheal. ANESTHESIOLOGIST: Nathan Diaz DO PREOPERATIVE DIAGNOSIS: Necrotizing soft tissue infection of left lower extremity. POSTOPERATIVE DIAGNOSIS: Necrotizing soft tissue infection of left lower extremity. PROCEDURE PERFORMED: Incision and drainage of left lower extremity infection extending down through fascia, and muscle, both of which were necrotic. The wound measured 21 x 13 x 2 cm. FINDINGS: Necrotic fascia and muscle down into the gastrocs and superior into the popliteal fossa. All necrotic tissue was debrided. The wound was then irrigated and packed. SPECIMENS: Fluid, muscle, and fascia were sent for culture and pathology. ESTIMATED BLOOD LOSS: 50 cc. DESCRIPTION OF PROCEDURE: The patient was greeted in the preoperative suite. Once again, risks, thuy efits, and alternatives were discussed. Consent was signed. He was brought back to the operative byrne ite on his gurney. He first underwent a time-out. After all anesthesia machines were on and functio humberto, he then underwent successful intubation. The patient was then placed in a prone position with all pressure points appropriately padded. His left lower extremity was prepped circumferentially in the standard fashion. I commenced the procedure by making an infrapopliteal incision. Just deep to the subcutaneous tissue, I encountered purulent fluid. Cultures of this were taken. The cavity exte nded significantly both superiorly and inferiorly. The overlying skin and subcutaneous tissue, most of which was viable, however, deep to this fascia and a portion of the muscle were necrotic. I took a significant portion of the skin and soft tissue, the wound finally measuring 21 x 13 x 2 cm. Porti ons of fascia and muscle were taken as they were necrotic. Debridement was all down to healthy viabl e tissue. The muscle would move when touched with the Bovie. I found no other significant pockets. Hemostasis was achieved with gentle pressure and electrocautery. The wound was then irrigated with 3 L sterile saline with bacitracin. It was then packed with quarter strength Dakin soaked Kerlix, AB Ds, and a sterile dressing was placed. Prior to this, the wound was saturated with 0.5% Marcaine for local anesthesia. The patient was then placed back into a supine position, extubated, and taken to the PACU in satisfactory condition. DRAINS: None. COUNTS: All counts were reported as correct x2. /[id number]/MODL
[2018-06-11] MEDS: KETOROLAC 15 MG/1 ML SDV IVP SCH ×5 (00:05→23:39)
[2018-06-11] MEDS: ACETAMINOPHEN 325 MG TAB PO SCH ×2 (00:05→05:18)
[2018-06-11] MEDS: PIPERACILLIN/TAZO 3.375 GM/DEX 50 ML IV SCH ×5 (00:05→23:39)
[2018-06-11 02:30] LABS: HEPATITIS B SURFACE ANTIGEN NEGATIVE (NEGATIVE)
[2018-06-11] MEDS: traMADol 50 MG TAB PO PRN (02:43)
[2018-06-11 04:17] LABS: HEPATITIS A ANTIBODY TOTAL NEGATIVE (NEGATIVE); HEPATITIS B CORE AB TOTAL NEGATIVE (NEGATIVE)
[2018-06-11 05:51] LABS: PLATELET COUNT 308 10^3/uL (150-400)
[2018-06-11] MEDS: METHOCARBAMOL 750 MG TAB PO PRN ×2 (08:19→21:28)
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
[2018-06-11] MEDS ORDERED: LACTULOSE 20 GM/30 ML UDCUP PO PRN (09:00)
[2018-06-11] MEDS ORDERED: BISACODYL 10 MG SUPP PR PRN (09:00)
[2018-06-11] MEDS ORDERED: MAGNESIUM HYDROXIDE 30 ML UDCUP PO PRN (09:00)
[2018-06-11] MEDS: oxyCODONE IR 5 MG TAB PO PRN ×3 (09:01→21:28)
[2018-06-11] MEDS: POLYETHYLENE GLYCOL 3350 17 GM PKT PO SCH (10:30)
[2018-06-11] MEDS: SENNOSIDES/DOCUSATE SODIUM TAB PO SCH ×2 (10:31→21:29)
[2018-06-11] MEDS: DAPTOmycin 500 MG in NS 100 ML IV SCH (10:50)
--- NOTE | 2018-06-11 13:00 | PCMIDPN ---
Assessment/Plan: Assessment: Continued fevers with consolidation of pain and induration and redness and warmth behind the left knee and upper calf. Patient currently is on daptomycin and Zosyn given the difficulty getting high enough trough level on vancomycin. Patient now admits to injecting in the back of his leg with a 20 dollar dose of methamphetamine that he used his saliva but to dissolve in the syringe before injecting. Plan: 1. Continue IV daptomycin and Zosyn 3.375 g Q 6 hr. 2. Monitor the appearance of the indurated area on his right calf. 3. Monitor micro results from surgical specimen. Subjective: Patient is doing better today after having surgery yesterday evening on his left leg. He notes he had no fevers. He states that he was not truthful about injecting into the area because he was embarrassed about it. Objective: Daptomycin # 2 Zosyn # 2 Vital Signs Temp Pulse Resp BP Pulse Ox 36.8 C 79 15 104/64 95 06/11/18 11:50 06/11/18 11:50 06/11/18 11:50 06/11/18 11:50 06/11/18 11:50 Microbiology 06/10/18 21:00 Gram Stain - Final Leg - Tissue 06/10/18 21:00 Gram Stain - Final Thigh - Tissue Tissue Culture - Final 06/10/18 21:00 Gram Stain - Final Other - Eswab Laboratory Results 06/11/18 05:24 06/11/18 05:24 06/10/18 06/11/18 06/12/18 05:59 05:59 05:59 Intake Total 1750 2795 300 Output Total 1200 874 425 Balance 550 1921 -125 - Physical Exam General Appearance: WD/WN, alert, no apparent distress, non-toxic Respiratory: lungs clear, normal breath sounds, No respiratory distress Cardiac/Chest: regular rate, rhythm, No tachycardia Extremities: No non-tender, No normal inspection (Left lower extremity with postop dressings. No significant surrounding erythema.) ICD10 Worksheet Patient Problems: Problems Problem Status Onset Arthralgia Acute Depression Acute Homeless Acute Multiple sclerosis exacerbation Acute
--- NOTE | 2018-06-11 16:25 | SOAPPROG ---
SOAP Progress Note Assessment/Plan: Assessment: 42yo male s/p LLE debridement for nec fasc - VSS, HDS - area is painful, anticipated - Wound dressing changed to XENIA, will change packing tomorrow. VAC Weds Plan: 06/11/18 16:25 Subjective: pain Objective: Vital Signs Temp Pulse Resp BP Pulse Ox 36.8 C 85 15 94/52 L 96 06/11/18 15:54 06/11/18 15:54 06/11/18 15:54 06/11/18 15:54 06/11/18 15:54 Microbiology 06/10/18 21:00 Gram Stain - Final Leg - Tissue 06/10/18 21:00 Gram Stain - Final Thigh - Tissue Tissue Culture - Final 06/10/18 21:00 Gram Stain - Final Other - Eswab Laboratory Results 06/11/18 05:24 06/11/18 05:24 06/10/18 06/11/18 06/12/18 05:59 05:59 05:59 Intake Total 1750 2795 300 Output Total 1200 874 425 Balance 550 1921 -125 ICD10 Worksheet Patient Problems: Problems Problem Status Onset Arthralgia Acute Depression Acute Homeless Acute Multiple sclerosis exacerbation Acute
[2018-06-11] MEDS: ACETAMINOPHEN 500 MG TAB PO SCH ×2 (17:27→21:28)
[2018-06-12] MEDS: METHOCARBAMOL 750 MG TAB PO PRN ×3 (05:27→18:29)
[2018-06-12] MEDS: oxyCODONE IR 5 MG TAB PO PRN ×4 (05:27→20:54)
[2018-06-12] MEDS: PIPERACILLIN/TAZO 3.375 GM/DEX 50 ML IV SCH ×4 (05:28→23:14)
[2018-06-12] MEDS: ACETAMINOPHEN 500 MG TAB PO SCH ×3 (08:20→21:42)
[2018-06-12] MEDS: POLYETHYLENE GLYCOL 3350 17 GM PKT PO SCH (08:20)
[2018-06-12] MEDS: SENNOSIDES/DOCUSATE SODIUM TAB PO SCH ×2 (08:20→20:54)
--- NOTE | 2018-06-12 09:22 | HOSPPROG ---
Hospitalist Progress Note Assessment/Plan: Patient is a 42-year-old male with MS who also injects methamphetamines. He was in his usual state of health when he started having increased back pain and left lower extremity pain approximately 3 days prior to his admission. He also had a fever. *Severe cellulitis in left lower extremity, necrotizing - S/P LLE debridement -to get a wound vac tomorrow -secondary from IV injection at the popliteal area, also from licking the needles prior to injection -Daptomycin + Zosyn *Pain due to the above -hx of recent meth use, he understands the concern with pain medications -oxy ir added to scheduled Tylenol -added prn IV diluadid to be used prior to dressing changes and when wound vac is applied *SIRS: temp, leukocytosis, HR. -H/O IVDA -blood cx currently show no growth -worsening leukocytosis *Multiple sclerosis - some concern for flare on arrival -appreciate neurology consult -PT/OT -symptoms should improve with treatment of an infection *IVDA - -neg hep C and HIV -hepatitis B antibody pending *Hyponatremia -improved -will lift fluid restriction *Anemia -drop post op *Homelessness -CM to assist with dispo planning *DVT prophy -LMWH added today, patient is not very mobile *Plan: cont the above care, appreciate ID and surgical team. Will lift fluid restrictions and check labs in a.m, including a CPK while on dapto. Subjective: Alfie is very grateful for all the help he is recieving, mainly thirsty this morning and has some pain in the left calf area. Objective: Vital Signs Temp Pulse Resp BP Pulse Ox 36.9 C 76 17 109/70 94 06/12/18 07:16 06/12/18 07:16 06/12/18 07:16 06/12/18 07:16 06/12/18 07:16 Microbiology 06/10/18 21:00 Gram Stain - Final Leg - Tissue 06/10/18 21:00 Gram Stain - Final Thigh - Tissue Tissue Culture - Final 06/10/18 21:00 Gram Stain - Final Other - Eswab Laboratory Results 06/11/18 05:24 06/11/18 05:24 06/11/18 06/12/18 06/13/18 05:59 05:59 05:59 Intake Total 2795 1800 Output Total 874 1275 Balance 1921 525 - Physical Exam Constitutional: uncomfortable Eyes: PERRL Ears, Nose, Mouth, Throat: hearing normal Cardiovascular: regular rate and rhythym Respiratory: no respiratory distress Gastrointestinal: normoactive bowel sounds Skin: warm, other (left lower ext in richelle wrap, swelling) Musculoskeletal: generalized weakness Neurologic: AAOx3 Psychiatric: interacting appropriately ICD10 Worksheet Patient Problems: Problems Problem Status Onset Arthralgia Acute Depression Acute Homeless Acute Multiple sclerosis exacerbation Acute
--- NOTE | 2018-06-12 09:57 | PCMIDPN ---
Assessment/Plan: 1. Necrotizing fasciitis/pyomyositis left lower extremity status post washout/ debridement: Would continue daptomycin and Piperacillin/tazobactam for now pending microbiology. Suspect oral ruiz will be involved given history. If Pseudomonas is not isolated, can change Zosyn to Unasyn. Fungal culture also pending. Wound VAC to be placed tomorrow. 2. Injection drug use: Hepatitis-B surface antibody pending. If not immune, would give Twinrix 1. While he is in-house, as he is not immune to hepatitis a either. Reiterated harm reduction issues that we had talked about 2 days ago. Tdap 7 years ago. Subjective: Status post debridement of large abscess in the leg/necrotizing fasciitis and pyomyositis. Patient he is in good spirits and is doing well. No complaints. No diarrhea on the antibiotics. Will likely have wound VAC placed tomorrow. Objective: Zosyn 3.375 g IV q.6 hours day 3 Daptomycin 500 mg IV daily day 3 Vital Signs Temp Pulse Resp BP Pulse Ox 36.9 C 76 17 109/70 94 06/12/18 07:16 06/12/18 07:16 06/12/18 07:16 06/12/18 07:16 06/12/18 07:16 Microbiology 06/10/18 21:00 Gram Stain - Final Thigh - Tissue Tissue Culture - Final 06/10/18 21:00 Gram Stain - Final Other - Eswab 06/10/18 21:00 Gram Stain - Final Leg - Tissue Laboratory Results 06/11/18 05:24 06/11/18 05:24 06/11/18 06/12/18 06/13/18 05:59 05:59 05:59 Intake Total 2795 1800 Output Total 874 1275 Balance 1921 525 722: Leg no organisms no polys Microbiology lab tells me that he is growing 2+ alpha hemolytic strep and 1+ beta strep - Physical Exam General Appearance: alert, no apparent distress EENT: pharynx normal, No thrush Respiratory: lungs clear Cardiac/Chest: regular rate, rhythm Extremities: other (Left lower extremity elevated on multiple pillows: Cellulitic component on lower extremity looks better with some pinkish erythema remaining. I did not unwrap his knee.) Abdomen: non-tender, soft Skin: No rash Neuro/Psych: oriented x 3 ICD10 Worksheet Patient Problems: Problems Problem Status Onset Arthralgia Acute Depression Acute Homeless Acute Multiple sclerosis exacerbation Acute
[2018-06-12] MEDS: DAPTOmycin 500 MG in NS 100 ML IV SCH (10:35)
[2018-06-12] MEDS: ENOXAPARIN 40 MG/0.4 ML SYR SC SCH (10:35)
--- NOTE | 2018-06-12 10:56 | ASMTCMCOM ---
CM Note CM Note Notes: Left a message for Lucretia who is willing to consider patient but wants more information. Patient has been denied by most of the other SNF facilities. Awaiting Zander's return call. ([phone]) CM will follow. Date Signed: 06/12/2018 10:56 AM Electronically Signed By:Kiya Falcon LCSW
--- NOTE | 2018-06-12 14:41 | ASMTCMCOM ---
FELY Note CM Note Notes: Zander from [facility] came to assess patient in person today. CM resent him the medical updates on patient. Zander will contact Collette with [facility]'s decision tomorrow morning. Zander's number is [phone]. CM will follow. Date Signed: 06/12/2018 02:40 PM Electronically Signed By:Kiya Falcon LCSW
[2018-06-12] MEDS ORDERED: HALOPERIDOL 2 MG TAB PO ONE (16:15)
[2018-06-12] MEDS: HYDROmorphONE/DILAUDID 1 MG/ML INJ IVP PRN (21:42)
[2018-06-13] MEDS: METHOCARBAMOL 750 MG TAB PO PRN ×3 (00:18→20:53)
[2018-06-13] MEDS: traMADol 50 MG TAB PO PRN ×3 (00:18→20:53)
[2018-06-13] MEDS: oxyCODONE IR 5 MG TAB PO PRN ×5 (03:28→23:21)
[2018-06-13] MEDS: PIPERACILLIN/TAZO 3.375 GM/DEX 50 ML IV SCH ×3 (05:26→18:04)
[2018-06-13 05:51] LABS: CREATINE KINASE 21 IU/L (0-224)
[2018-06-13 05:57] LABS: PLATELET COUNT 389 10^3/uL (150-400)
[2018-06-13] MEDS: ACETAMINOPHEN 500 MG TAB PO SCH ×3 (09:27→23:20)
[2018-06-13] MEDS: ENOXAPARIN 40 MG/0.4 ML SYR SC SCH (09:27)
[2018-06-13] MEDS: POLYETHYLENE GLYCOL 3350 17 GM PKT PO SCH (09:27)
[2018-06-13] MEDS: SENNOSIDES/DOCUSATE SODIUM TAB PO SCH ×2 (09:27→20:54)
[2018-06-13] MEDS: HYDROmorphONE/DILAUDID 1 MG/ML INJ IVP PRN ×2 (09:59→23:31)
[2018-06-13] MEDS: LIDOCAINE HCL 4% TOPICAL SOLN 50ML TP SCH (10:35)
[2018-06-13] MEDS ORDERED: LORazepam 2 MG/ML INJ IVP ONE (10:55)
--- NOTE | 2018-06-13 11:14 | ASMTCMCOM ---
CM Note CM Note Notes: [facility] has declined pt due to drug use and prior behavioral issues while at [facility]. Pt has been denied SNF placement by [facility] SNFs. Several referrals sent to SNFs in [facility] today. Anticipate placement will continue to be a challenge due to substance use. PT/OT continue to rec SNF. Pt to get wound vac today. Pt experiencing paranoia. CM will continue to follow. Date Signed: 06/13/2018 11:13 AM Electronically Signed By:DANAE Bartlett
[2018-06-13] MEDS: DAPTOmycin 500 MG in NS 100 ML IV SCH (11:34)
--- NOTE | 2018-06-13 12:02 | WOCRNPDOC ---
WOCRN Advanced Assessment Note - Skin Integrity Problem, Advanced Assess Left Calf Surgical Wound/Incision Dressing Type: ABD Pad, Kerlix Dressing Description: Intact, Shadowed Exudate Amount: Moderate Exudate Characteristic(s): Serosanguinous Integumentary Issue Intervention: Dressing Changed Nancy Wound Tissue: Erythema Nancy Wound Swelling: Moderate Wound Bed Constitution: Granulation Tissue (40%), Tunneling (4 oclock: 2.5 cm, 11 oclock 6 cm. ), Undermining (8-11oclock and 1 to 4 oclock 1 cm ), Tendon (30% ), Muscle Wound Edges: Not Attached Site Odor: None Site Measurement - Head-to-Toe Length X Width X Depth (cm): 17.9x14x1.3 Skin Integrity Problem Comment: Patient very anxious about dressing change and stated "can you just put me under"? Base layer of kerlix was quite embedded into tissue and took over 30 min to remove due to patient pain and discomfort. Order for 4% lidocaine obtained and administered topically which helped quite a bit. Anncy wound hair clipped with clippers. Flushed wound with ns. Wound bed clean without any necrosis. Nancy wound skin prepped with skin barrier spray and then draped. x 2 pieces of white foam placed into tunnels, one at 4 oclock another at 12 oclock. Undermining was also filled with white foam. Two large areas of tendon in inferior lateral and medial wound were covered with white foam. The remainder of the wound bed and the white foam was covered with medium black simplace foam. This was bridged to lateral calf and set to suction at - 125 mm Hg continuous. Vac working well without leaks. SANDOR Maddox in room for care. Vac changes MWF. Patient tolerated proceedure fairly well but was very anxious. Ativan may be useful for him next time along with the use of lidocaine into the wound vac foam prior to foam removal.
--- NOTE | 2018-06-13 12:10 | HOSPPROG ---
Hospitalist Progress Note Assessment/Plan: Patient is a 42-year-old male with MS who also injects methamphetamines. He was in his usual state of health when he started having increased back pain and left lower extremity pain approximately 3 days prior to his admission. He also had a fever. *Severe cellulitis in left lower extremity, necrotizing - S/P LLE debridement - wound vac 06/13 -secondary from IV injection at the popliteal area, also from licking the needles prior to injection -Daptomycin + Zosyn -cpk stable *Pain due to the above -hx of recent meth use, he understands the concern with pain medications -oxy ir added to scheduled Tylenol -added prn IV Dilaudid to be used prior to dressing changes and when wound vac is applied and dressing changes done *SIRS: temp, leukocytosis, HR. -H/O IVDA -blood cx currently show no growth *Multiple sclerosis - some concern for flare on arrival -appreciate neurology consult -PT/OT -symptoms should improve with treatment of an infection *IVDA - -neg hep C and HIV -hepatitis B antibody pending *Hyponatremia -improved -will lift fluid restriction *Anemia -drop post op *Homelessness -CM to assist with dispo planning *DVT prophy -LMWH *Plan: added Ativan prn due to patient's increase anxiety, likely withdrawing from meth. As his symptoms improve, this should be discontinued. Subjective: Alfie is very appreciative of the care. says his leg has been painful during wound vac placement. Objective: Vital Signs Temp Pulse Resp BP Pulse Ox 37.1 C 64 18 128/83 H 96 06/13/18 08:00 06/13/18 08:00 06/13/18 08:00 06/13/18 08:00 06/13/18 08:00 Microbiology 06/10/18 21:00 Gram Stain - Final Leg - Tissue 06/10/18 21:00 Gram Stain - Final Other - Eswab 06/10/18 21:00 Gram Stain - Final Thigh - Tissue Tissue Culture - Final Laboratory Results 06/13/18 04:57 06/13/18 04:57 06/12/18 06/13/18 06/14/18 05:59 05:59 05:59 Intake Total 1800 300 Output Total 1275 1400 750 Balance 525 -1100 -750 - Physical Exam Constitutional: appears nourished, uncomfortable, No not in pain Eyes: PERRL Ears, Nose, Mouth, Throat: hearing normal Cardiovascular: regular rate and rhythym Respiratory: no respiratory distress Skin: warm, other (wound vac to left leg, left leg still with erythema on back side and along the reece area) Musculoskeletal: generalized weakness Neurologic: AAOx3 Psychiatric: interacting appropriately, anxious ICD10 Worksheet Patient Problems: Problems Problem Status Onset Arthralgia Acute Depression Acute Homeless Acute Multiple sclerosis exacerbation Acute
--- NOTE | 2018-06-13 16:07 | ASMTCMCOM ---
CM Note CM Note Notes: Ludivina with [facility] [phone] reports they may be able to meet pt needs and accept as long as Pasrr does not trigger level II (they ar eat their MMI cap) and pt has dispo plan. Ludivina reports Pasrr sent to them is not complete, this cm reviewed Pasrr and it is not complete and did not indicate pt major depression dx. Triggering Pasrr faxed to Terrie Chan. Prior Pasrrs from 11/04 and 12/06 did not trigger level II so hopefully this time Pasrr will not trigger. Pt indicated he may also be interested in LTC. Pt reports he does not have a dispo plan, no home and no family. Pt is in touch with his dghtr who lives with his sister in [place]. This CM emphasizes how no SNF can accept without a dispo plan. After thinking about it pt does state if he had to he could stay with his sister 1-2 days which can be his dispo plan from SNF. CM will continue to follow. Date Signed: 06/13/2018 04:07 PM Electronically Signed By:DANAE Bartlett
--- NOTE | 2018-06-13 18:09 | PCMIDPN ---
Assessment/Plan: Assessment/Plan: * Necrotizing fasciitis/pyomyositis of left lower extremity status post incision and drainage: Cultures with growth of Streptococcus anginosus and Prevotella consistent with oropharyngeal ruiz. Based on culture findings, will transition from daptomycin and piperacillin/tazobactam to ampicillin/ sulbactam. Follow clinical findings over time. * Injection drug use: Hepatitis-B surface antibody is negative. Patient will need Twinrix prior to discharge to provide protection against both hepatitis A and B. 06/13/18 18:06 06/13/18 18:09 Subjective: Patient with residual left lower extremity pain although significantly decreased. Patient had wound VAC placed earlier today. Objective: Vital Signs Temp Pulse Resp BP Pulse Ox 37.4 C 67 18 118/82 H 96 06/13/18 16:00 06/13/18 16:00 06/13/18 16:00 06/13/18 16:00 06/13/18 16:00 Microbiology 06/10/18 21:00 Gram Stain - Final Other - Eswab 06/10/18 21:00 Gram Stain - Final Leg - Tissue 06/10/18 21:00 Gram Stain - Final Thigh - Tissue Tissue Culture - Final Laboratory Results 06/13/18 04:57 06/13/18 04:57 06/12/18 06/13/18 06/14/18 05:59 05:59 05:59 Intake Total 8712 366 9507 Output Total 1275 1400 2831 Balance 385 -8999 -480 Daptomycin # 4 Zosyn # 4 Operative cultures with growth of Streptococcus anginosus and Prevotella Blood cultures x2 no growth Laboratory Tests 06/10/18 06/10/18 11:00 11:00 Hepatitis A Ab Total NEGATIVE Hep Bs Antigen NEGATIVE Hep Bs Antibody Negative Hep B Core Total Ab NEGATIVE Hep Bs Antibody, Quant <5.0 - Physical Exam General Appearance: alert, no apparent distress EENT: No scleral icterus, No thrush, No conjunctival petechiae Respiratory: lungs clear, No respiratory distress Cardiac/Chest: regular rate, rhythm Extremities: inflammation (Left lower extremity with 3+ edema; wound VAC in place; tenderness around wound VAC margins without erythema or necrosis) Abdomen: No non-tender, No distended Skin: No embolic lesions - Time Spent With Patient Time Spent with Patient: greater than 25 minutes Time Spent with Patient: Greater than 25 minutes spent on this patients care, greater than 50% of time spent counseling, educating, and coordinating care regarding the above mentioned plan. ICD10 Worksheet Patient Problems: Problems Problem Status Onset Arthralgia Acute Depression Acute Homeless Acute Multiple sclerosis exacerbation Acute
[2018-06-14] MEDS: AMPICILLIN/SULBACTAM 3 GM in NS 100 ML IV SCH ×4 (00:26→17:13)
[2018-06-14] MEDS: traMADol 50 MG TAB PO PRN (04:43)
[2018-06-14] MEDS: METHOCARBAMOL 750 MG TAB PO PRN (05:52)
[2018-06-14] MEDS: ENOXAPARIN 40 MG/0.4 ML SYR SC SCH (08:08)
[2018-06-14] MEDS: SENNOSIDES/DOCUSATE SODIUM TAB PO SCH ×2 (08:09→22:21)
[2018-06-14] MEDS: oxyCODONE IR 5 MG TAB PO PRN ×3 (08:09→20:55)
[2018-06-14] MEDS: POLYETHYLENE GLYCOL 3350 17 GM PKT PO SCH (08:09)
--- NOTE | 2018-06-14 09:44 | PCMIDPN ---
Assessment/Plan: 1. Necrotizing fasciitis/pyomyositis left lower extremity status post washout/ debridement: Antibiotics changed to Unasyn alone given microbiology consistent with oral ruiz. Wound VAC also placed. Suspect patient will need 2 weeks of IV antibiotics, then meticulous wound care moving forward. SNF arrangements are being made. 2. Injection drug use: We do not stock Twinrix. He will get hepatitis B #1 and Hep A #1 today. Will need Hep B #2 late June, and #22 November 2018. Hepatitis A #21 November 2018. 06/14/18 09:36 Subjective: Complaining of pain. Not keeping his leg elevated. Wound VAC placed. No diarrhea on the antibiotics. Antibiotics de-escalated to Unasyn alone. Objective: T-max 37 degrees for Unasyn 3 g IV q.6 hours day 1 (antibiotics day 5) Vital Signs Temp Pulse Resp BP Pulse Ox 37.1 C 77 18 127/75 H 97 06/14/18 07:24 06/14/18 07:24 06/14/18 07:24 06/14/18 07:24 06/14/18 07:24 Microbiology 06/10/18 21:00 Gram Stain - Final Other - Eswab 06/10/18 21:00 Gram Stain - Final Leg - Tissue 06/10/18 21:00 Gram Stain - Final Thigh - Tissue Tissue Culture - Final Laboratory Results 06/13/18 04:57 06/13/18 04:57 06/13/18 06/14/18 06/15/18 05:59 05:59 05:59 Intake Total 300 2480 140 Output Total 1400 8437 1999 Balance -2034 -5297 -8234 Leg: Strep anginosus, 2 types and prevotella buccae - Physical Exam General Appearance: alert, no apparent distress EENT: pharynx normal, No thrush Respiratory: lungs clear Cardiac/Chest: regular rate, rhythm, No systolic murmur Extremities: other (Left lower extremity with wound VAC in place. Left lower extremity is swollen compared to the right, but no evidence of residual cellulitis. Some tenderness superiorly and laterally along the VAC, but no evidence of necrosis, or other abnormality. No bullae.) ICD10 Worksheet Patient Problems: Problems Problem Status Onset Arthralgia Acute Depression Acute Homeless Acute Multiple sclerosis exacerbation Acute
[2018-06-14] MEDS ORDERED: HEPATITIS A VIRUS VACCINE 1,440 UNIT/ML SYRINGE IM ONE (10:00)
[2018-06-14] MEDS ORDERED: HEPATITIS B VIRUS VACCINE-PF 20 MCG/ML INJ IM ONE (10:00)
[2018-06-14] MEDS: ACETAMINOPHEN 500 MG TAB PO SCH ×3 (10:23→22:21)
--- NOTE | 2018-06-14 14:21 | HOSPPROG ---
Hospitalist Progress Note Assessment/Plan: Patient is a 42-year-old male with MS who also injects methamphetamines. He was in his usual state of health when he started having increased back pain and left lower extremity pain approximately 3 days prior to his admission. He also had a fever. First encounter, chart reviewed. D/W CM and RN. *Severe cellulitis in left lower extremity, necrotizing - S/P LLE debridement - wound vac 06/13 -secondary from IV injection at the popliteal area, also from licking the needles prior to injection -Daptomycin + Zosyn -cpk stable *Pain due to the above -hx of recent meth use -oxy ir to scheduled Tylenol -prn IV Dilaudid to be used prior to dressing changes and when wound vac is applied and dressing changes done *SIRS: temp, leukocytosis, HR. -H/O IVDA -blood cx currently show no growth *Multiple sclerosis - some concern for flare on arrival -appreciate neurology consult -PT/OT -symptoms should improve with treatment of an infection *IVDA - -neg hep C and HIV -hepatitis B antibody pending *Hyponatremia -improved -no fluid restriction *Anemia -drop post op *Homelessness -CM to assist with dispo planning *Paranoid -appreciate Juanis Ray -D/W CM, will order a psych eval *DVT prophy -LMWH *Plan: Ativan prn due to patient's increase anxiety, likely withdrawing from meth. As his symptoms improve, this should be discontinue Subjective: Up in chair. Doing ok. No specific issues. Pain stable. Objective: Vital Signs Temp Pulse Resp BP Pulse Ox 37.1 C 77 18 127/75 H 97 06/14/18 07:24 06/14/18 07:24 06/14/18 07:24 06/14/18 07:24 06/14/18 07:24 Microbiology 06/10/18 21:00 Gram Stain - Final Leg - Tissue 06/10/18 21:00 Gram Stain - Final Other - Eswab 06/10/18 21:00 Gram Stain - Final Thigh - Tissue Tissue Culture - Final Laboratory Results 06/13/18 04:57 06/13/18 04:57 06/13/18 06/14/18 06/15/18 05:59 05:59 05:59 Intake Total 300 2480 140 Output Total 1400 6756 2850 Balance -1100 -4276 -2710 - Physical Exam Constitutional: appears nourished, chronically ill appearing, unkempt Eyes: PERRL, anicteric sclera, EOMI Ears, Nose, Mouth, Throat: moist mucous membranes, hearing normal, ears appear normal Cardiovascular: No JVD, No tachycardia, No edema Respiratory: no respiratory distress, no rales or rhonchi, reduced air movement Gastrointestinal: normoactive bowel sounds, No tenderness, No ascites Skin: warm, erythema, other (wound vac) Musculoskeletal: no joint effusions, muscular tenderness, generalized weakness Psychiatric: not anxious, flat affect, poor insight, poor judgement, poor memory ICD10 Worksheet Patient Problems: Problems Problem Status Onset Depression Acute Arthralgia Acute Homeless Acute Multiple sclerosis exacerbation Acute
--- NOTE | 2018-06-14 14:49 | ASMTCMCOM ---
CM Note CM Note Notes: Pt non-triggering PASRR returned form [facility], fax attached in [employer]. Updates and [facility]-triggering PASRR [facility] Jacob and Camryn who are still assessing pt. 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 Pt on probation for possession of methamphetamines. Still no SNF placment, CM will continue to follow. Date Signed: 06/14/2018 02:49 PM Electronically Signed By:DANAE Bartlett
[2018-06-15] MEDS: oxyCODONE IR 5 MG TAB PO PRN ×4 (00:48→21:07)
[2018-06-15] MEDS: AMPICILLIN/SULBACTAM 3 GM in NS 100 ML IV SCH ×4 (00:49→17:28)
[2018-06-15] MEDS: METHOCARBAMOL 750 MG TAB PO PRN ×2 (04:29→16:48)
[2018-06-15] MEDS: traMADol 50 MG TAB PO PRN ×2 (04:29→20:10)
[2018-06-15] MEDS: POLYETHYLENE GLYCOL 3350 17 GM PKT PO SCH (08:26)
[2018-06-15] MEDS: SENNOSIDES/DOCUSATE SODIUM TAB PO SCH ×2 (08:26→20:16)
[2018-06-15] MEDS: ACETAMINOPHEN 500 MG TAB PO SCH ×3 (08:27→21:06)
[2018-06-15] MEDS: ENOXAPARIN 40 MG/0.4 ML SYR SC SCH (08:27)
--- NOTE | 2018-06-15 09:11 | SOAPPROG ---
SOAP Progress Note Assessment/Plan: Assessment: 42yo male s/p LLE debridement for nec fasc -Area appears less red and edematous, also less painful - he is weight bearing as tolerated, really only using his toe for balance which I anticipate will improve as his pain improved - VAC change today, will be present to assess wound bed Plan: 06/11/18 16:25 06/15/18 09:10 Subjective: resting, pain better Objective: Vital Signs Temp Pulse Resp BP Pulse Ox 37.1 C 99 18 115/71 94 06/15/18 07:34 06/15/18 07:34 06/15/18 07:34 06/15/18 07:34 06/15/18 07:34 Microbiology 06/10/18 21:00 Gram Stain - Final Leg - Tissue 06/10/18 21:00 Gram Stain - Final Other - Eswab Laboratory Results 06/13/18 04:57 06/13/18 04:57 06/14/18 06/15/18 06/16/18 05:59 05:59 05:59 Intake Total 5350 420 Output Total 6756 5375 500 Balance -4276 -4955 -500 ICD10 Worksheet Patient Problems: Problems Problem Status Onset Arthralgia Acute Depression Acute Homeless Acute Multiple sclerosis exacerbation Acute
[2018-06-15] MEDS: HYDROmorphONE/DILAUDID 1 MG/ML INJ IVP PRN (10:36)
--- NOTE | 2018-06-15 10:49 | PCMIDPN ---
Assessment/Plan: 1. Necrotizing fasciitis/pyomyositis left lower extremity status post washout/ debridement: Wound VAC change today. The patient cable tender inferiorly along the wound VAC ; cellulitis and edema markedly improved. Continue Unasyn. Disposition unclear at this point in time. 2. Injection drug use: He will get hepatitis B #1 and Hep A #1 given yesterday. Will need Hep B #2 late June, and #22 November 2018. Hepatitis A #21 November 2018. Subjective: Not in a good mood this morning. No diarrhea. Objective: Unasyn 3 g IV q.6 hours day 2 (antibiotics day 6) T-max 37.2 degrees Vital Signs Temp Pulse Resp BP Pulse Ox 37.1 C 99 18 115/71 94 06/15/18 07:34 06/15/18 07:34 06/15/18 07:34 06/15/18 07:34 06/15/18 07:34 Microbiology 06/10/18 21:00 Gram Stain - Final Leg - Tissue 06/10/18 21:00 Gram Stain - Final Other - Eswab Laboratory Results 06/13/18 04:57 06/13/18 04:57 06/14/18 06/15/18 06/16/18 05:59 05:59 05:59 Intake Total 2480 420 Output Total 8543 5312 2943 [facility] -8039 -4173 -2638 Leg cultures with strep anginosus and prevotella - Physical Exam General Appearance: alert EENT: pharynx normal, No thrush Extremities: other (Left popliteal fossa with large wound VAC in place extending down inferiorly and posteriorly into the gastrocnemius muscle. Some tenderness inferiorly along the VAC, but swelling and cellulitis much better.) ICD10 Worksheet Patient Problems: Problems Problem Status Onset Arthralgia Acute Depression Acute Homeless Acute Multiple sclerosis exacerbation Acute
[2018-06-15] MEDS: LIDOCAINE HCL 4% TOPICAL SOLN 50ML TP SCH (10:58)
[2018-06-15] MEDS ORDERED: PNEUMOCOCCAL 0.5ML VACCINE VIAL IM ONE (12:36)
--- NOTE | 2018-06-15 12:40 | WOCRNPDOC ---
WOCRN Advanced Assessment Note - Skin Integrity Problem, Advanced Assess Left Posterior Calf Unknown Dressing Type: Wound Vac Dressing Description: Clean/Dry, Intact Exudate Amount: Minimal Exudate Color: Red Exudate Characteristic(s): Serosanguinous Integumentary Issue Intervention: Dressing Changed Nancy Wound Tissue: Intact Wound Bed Color: Red, White Wound Bed Constitution: Tunneling (4 o'clock 3cm, 11 o'clock 4cm, 12 o'clock 5cm ), Undermining (8-11 o'clock 1cm, 1-4 o'clock 1cm), Tendon, Muscle, Fascia Wound Edges: Attached, Not Attached Site Odor: None Site Measurement - Head-to-Toe Length X Width X Depth (cm): 17.2x15.1x1.2 Skin Integrity Problem Comment: Patient given 1mg IV Dilaudid prior to dressing change. 4% liquid lidocaine injected into black foam prior to dressing removal to help with pain control. Drape removed with spray adhesive remover. Dressing removed with several pauses to give patient a break. Lidocaine applied to wound bed to aid in pain relief from foam removal and throughout dressing change. 10ml of 4% lidocaine used. 4 pieces of white foam removed from 2 tunnels and 2 areas of undermining. Wound cleansed with NS. Periwound skin prepped with no sting skin prep and drape. x3 white foam placed in tunnels at 11 o'clock, 12 o' clock, and 4 o'clock. x3 white foam placed in areas of undermining. x2 white foam placed over exposed tendon. Total white foam pieces used was 7. Covered with 3 pieces of medium black simplace foam. Wound draped and track pad attached at bridge on lateral lower leg. NPWT achieved at -125mmHg continuous with no leaks detected. Dr. Sales in room to assess wound. Mable ADAME in room for care. Patient was hypervigilant that no one should be whispering in his room and was concerned that staff was talking about him. Patient was worried people would be watching through his windows and wanted shades closed. Patient calmed down once we began interacting with him. Wound care will round [facility] for vac dressing changes.
--- NOTE | 2018-06-15 13:58 | HOSPPROG ---
Hospitalist Progress Note Assessment/Plan: Patient is a 42-year-old male with MS who also injects methamphetamines. He was in his usual state of health when he started having increased back pain and left lower extremity pain approximately 3 days prior to his admission. He also had a fever. *Necrotizing fasciitis/pyomyositis left lower extremity status post washout -secondary from IV injection at the popliteal area, also from licking the needles prior to injection -Wound VAC change today -cellulitis and edema improved. -Continue Unasyn *Pain due to the above -hx of recent meth use -oxy ir to scheduled Tylenol -prn IV Dilaudid to be used prior to dressing changes and when wound vac is applied and dressing changes done *SIRS -resolved -temp, leukocytosis, HR. -H/O IVDA -blood cx currently show no growth *Multiple sclerosis - some concern for flare on arrival -appreciate neurology consult -PT/OT -symptoms should improve with treatment of an infection *IVDA -neg hep C and HIV -hepatitis B antibody pending *Hyponatremia -improved -no fluid restriction *Anemia -drop post op *Homelessness -CM to assist with dispo planning -possibly Monday to SNF with wound vac *Paranoid -appreciate Juanis Ray -D/W CM -follow -pt not paranoid now *DVT prophy -LMWH *Plan - Ativan prn due to patient's increase anxiety, -likely withdrawing from meth. -As his symptoms improve, this should be discontinue Subjective: Still having some leg pain. Eating well. No other issues. Objective: Vital Signs Temp Pulse Resp BP Pulse Ox 37.1 C 99 16 114/84 H 98 06/15/18 07:34 06/15/18 07:34 06/15/18 11:53 06/15/18 11:53 06/15/18 11:53 Microbiology 06/10/18 21:00 Gram Stain - Final Leg - Tissue 06/10/18 21:00 Gram Stain - Final Other - Eswab Laboratory Results 06/13/18 04:57 06/13/18 04:57 06/14/18 06/15/18 06/16/18 05:59 05:59 05:59 Intake Total 7908 420 Output Total 6280 2775 6240 Balance -3639 -3906 -9648 - Physical Exam Constitutional: chronically ill appearing, unkempt Eyes: PERRL, anicteric sclera Ears, Nose, Mouth, Throat: moist mucous membranes, hearing normal Cardiovascular: No JVD, No edema Respiratory: no respiratory distress, reduced air movement Gastrointestinal: No tenderness, No ascites Skin: warm, erythema, other (wound vac) Musculoskeletal: pain with ROM, muscular tenderness, generalized weakness Neurologic: AAOx3 Psychiatric: not anxious, not encephalopathic, poor insight, poor judgement ICD10 Worksheet Patient Problems: Problems Problem Status Onset Depression Acute Arthralgia Acute Homeless Acute Multiple sclerosis exacerbation Acute
--- NOTE | 2018-06-15 15:31 | ASMTCMCOM ---
CM Note CM Note Notes: Pt accepted at [facility] in [place]. Admissions contact is Ludivina [phone] or [phone]. While pt is medically stable for d/c, he did not d/c today due to coordination with [facility] about pt wound vac. Pt is not able to be disconnected from his wound vac, MSM must obtain the wound vac, get it to [facility] and connect it to pt. [facility] wound vac is not able to leave with pt, this CM confirmed with CM management since it is delaying pt d/c. Ludivina thinks they may be able to obtain wound vac Monday morning and will have to coordinate with CM how to get it to [facility] and if pt can go in their transport van or needs stretcher. Pt is agreeable to this SNF. Voicemail left for senior administrative services officer Rosetta Smith because pt has not received the housing application she was going to send to [facility]. CM will follow. Date Signed: 06/15/2018 03:31 PM Electronically Signed By:DANAE Bartlett
[2018-06-15] MEDS: LORazepam 1 MG TAB PO PRN (21:07)
[2018-06-16] MEDS: AMPICILLIN/SULBACTAM 3 GM in NS 100 ML IV SCH ×5 (00:27→23:18)
[2018-06-16] MEDS: oxyCODONE IR 5 MG TAB PO PRN ×4 (01:05→20:15)
[2018-06-16] MEDS: METHOCARBAMOL 750 MG TAB PO PRN ×3 (01:05→13:53)
[2018-06-16] MEDS: traMADol 50 MG TAB PO PRN (04:33)
[2018-06-16] MEDS: ACETAMINOPHEN 500 MG TAB PO SCH ×3 (09:29→23:18)
[2018-06-16] MEDS: SENNOSIDES/DOCUSATE SODIUM TAB PO SCH ×2 (09:31→20:16)
[2018-06-16] MEDS: POLYETHYLENE GLYCOL 3350 17 GM PKT PO SCH (09:31)
[2018-06-16] MEDS: ENOXAPARIN 40 MG/0.4 ML SYR SC SCH (09:31)
--- NOTE | 2018-06-16 10:25 | ASMTCMCOM ---
CM Note CM Note Notes: Spoke with Ludivina at [facility] in [place] ([phone]) about coordination of wound vac at [place]. Pt is not able to be disconnected from his wound vac so they will need to bring a wound vac to [facility]. Ludivina thinks they will be able to obtain a wound vac by Monday morning. If pt is able to transport to [facility] in a wheelchair, they will send their van with an RN to place the wound vac and then transport to [facility]. If pt needs a stretcher, they will consider a novelty maker or taxi to get wound vac to [facility] and CM will set up stretcher transport. CM to follow. Date Signed: 06/16/2018 10:24 AM Electronically Signed By:Maribeth Cantu LCSW
--- NOTE | 2018-06-16 13:21 | HOSPPROG ---
Hospitalist Progress Note Assessment/Plan: Patient is a 42-year-old male with MS who also injects methamphetamines. He was in his usual state of health when he started having increased back pain and left lower extremity pain approximately 3 days prior to his admission. He also had a fever. *Necrotizing fasciitis/pyomyositis left lower extremity status post washout -secondary from IV injection at the popliteal area, also from licking the needles prior to injection -Wound VAC -cellulitis and edema improved. -Continue Unasyn *Pain due to the above -hx of recent meth use -oxy ir to scheduled Tylenol -prn IV Dilaudid to be used prior to dressing changes and when wound vac is applied and dressing changes done *SIRS -resolved -temp, leukocytosis, HR. -H/O IVDA -blood cx currently show no growth *Multiple sclerosis - some concern for flare on arrival -appreciate neurology consult -PT/OT -symptoms should improve with treatment of an infection *IVDA -neg hep C and HIV -hepatitis B antibody pending *Hyponatremia -improved -no fluid restriction *Anemia -drop post op *Homelessness -CM to assist with dispo planning -possibly Monday to SNF with wound vac *Paranoid -appreciate Juanis Ray -D/W CM -follow -pt not paranoid now *DVT prophy -LMWH *Plan - Ativan prn due to patient's increase anxiety, -likely withdrawing from meth. -As his symptoms improve, this should be discontinue Subjective: Feeling well. No issues. Still pain with movement. Objective: Vital Signs Temp Pulse Resp BP Pulse Ox 36.9 C 97 16 117/79 95 06/16/18 07:31 06/16/18 07:31 06/16/18 07:31 06/16/18 07:31 06/16/18 07:31 Microbiology 06/10/18 21:00 Gram Stain - Final Leg - Tissue 06/10/18 21:00 Gram Stain - Final Thigh - Tissue Tissue Culture - Final 06/10/18 21:00 Gram Stain - Final Other - Eswab Laboratory Results 06/13/18 04:57 06/13/18 04:57 06/15/18 06/16/18 06/17/18 05:59 05:59 05:59 Intake Total 420 1560 Output Total 5312 9197 500 Balance -9859 -3101 -500 - Physical Exam Constitutional: appears nourished, uncomfortable Eyes: PERRL, anicteric sclera Ears, Nose, Mouth, Throat: moist mucous membranes, hearing normal Cardiovascular: No JVD, No edema Respiratory: no respiratory distress, no rales or rhonchi Gastrointestinal: No tenderness, No ascites Skin: warm, other (wound vac) Musculoskeletal: full muscle strength, pain with ROM, muscular tenderness, generalized weakness Neurologic: AAOx3 Psychiatric: not anxious, not encephalopathic, poor insight, poor judgement ICD10 Worksheet Patient Problems: Problems Problem Status Onset Depression Acute Arthralgia Acute Homeless Acute Multiple sclerosis exacerbation Acute
[2018-06-17] MEDS: oxyCODONE IR 5 MG TAB PO PRN ×6 (00:32→22:16)
[2018-06-17] MEDS: METHOCARBAMOL 750 MG TAB PO PRN ×2 (04:17→18:07)
[2018-06-17] MEDS: AMPICILLIN/SULBACTAM 3 GM in NS 100 ML IV SCH ×3 (05:27→18:09)
[2018-06-17] MEDS: ENOXAPARIN 40 MG/0.4 ML SYR SC SCH (08:44)
[2018-06-17] MEDS: POLYETHYLENE GLYCOL 3350 17 GM PKT PO SCH (09:01)
[2018-06-17] MEDS: ACETAMINOPHEN 500 MG TAB PO SCH ×3 (09:01→22:16)
[2018-06-17] MEDS: SENNOSIDES/DOCUSATE SODIUM TAB PO SCH ×2 (09:01→22:15)
--- NOTE | 2018-06-17 10:24 | PDIAF ---
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 PICC Care - Routine: N/A (using PIVs) - Orders Isolation Type: None Additional Instructions: Wound care: Vac changes MWF. Next change due Monday 06/18. There are 7 pieces of white foam in wound bed that need to be removed on Monday. Have patient lie on his stomach for vac change. Use 4% liquid lidocaine in vac foam and during vac change for pain control. To access tunnels near popliteal area patient must bend his knee 30-[address] white foam over tendon/fascia and pack tunnels lightly with white foam. Do not overpack tunnels as this will impede healing. Place white foam 0.5-1cm short of the end of the tunnel. For the tunnel at 12 oclock the white foam should be 50% the width of the tunnel to allow the tunnel to shut down. Cover all white foam and remainder of wound with black foam. Suction to -125 mm Hg continuous. Mable MAHMOODON - Labs/Radiology CBC w/diff Date: 06/19/18 (weekly Monday) CMP Date: 06/19/18 (weekly Monday) Call or Fax Lab and Imaging Results to: Dr Martínez [phone] - Follow Up Care Current Providers and Referrals: NONE *PRIMARY CARE P,. [Primary Care Provider] - As per Instructions
--- NOTE | 2018-06-17 10:27 | PCMIDPN ---
Assessment/Plan: # polymicrobial L calf Necrotizing fasciitis/pyomyositis with culture showing Streptococcus and Prevotella status post washout/debridement 06/10/2018, recent exams by other providers during wound vac changes demonstrate good granulation by report. No clinical signs of infection on surrounding skin today. Interestingly, patient was not bacteremic, blood cultures 06/07/2018 were negative. No stigmata of endocarditis were noted by me on exam today --plan Unasyn for 2 weeks, stop date 06/23/18. Will use PIV and avoid PICC due to h/o IVDU --call ID for additional questions, if remains in house will see 1-2 weekly --wound VAC management per surgical team # Injection drug use: HIV, HCV negative --first hepatitis B #1 and Hep A #1 given during hospitalization. --Will need Hep B #2 late June, and #22 November 2018. Hepatitis A #21 November 2018. meds Unasyn 3 g IV q.6 hours day 4 (antibiotics day 8) Subjective: Patient curious why he can't stay at [facility] for the duration of his therapy. States that his leg swelling and erythema of his left leg has resolved. Objective: Vital Signs Temp Pulse Resp BP Pulse Ox 36.6 C 86 14 130/70 H 97 06/17/18 07:16 06/17/18 07:16 06/17/18 07:16 06/17/18 07:16 06/17/18 07:16 Laboratory Results 06/13/18 04:57 06/13/18 04:57 06/16/18 06/17/18 06/18/18 05:59 05:59 05:59 Intake Total 1560 900 Output Total 3995 1975 200 Balance -9525 -1075 -200 - Physical Exam General Appearance: alert, no apparent distress EENT: No conjunctival petechiae Respiratory: normal breath sounds, No accessory muscle use Neck: supple Cardiac/Chest: regular rate, rhythm, No systolic murmur Extremities: other (Wound VAC in place left posterior calf and antecubital area , no residual edema remains in surrounding tissues, no erythema in surrounding skin) Neuro/Psych: alert, normal mood/affect, oriented x 3 - Line/s PIV Lines: other (Left forearm), No drainage, No erythema - Time Spent With Patient Time Spent with Patient: greater than 25 minutes Time Spent with Patient: Greater than 25 minutes spent on this patients care, greater than 50% of time spent counseling, educating, and coordinating care regarding the above mentioned plan. ICD10 Worksheet Patient Problems: Problems Problem Status Onset Arthralgia Acute Depression Acute Homeless Acute Multiple sclerosis exacerbation Acute
[2018-06-17] MEDS: LORazepam 1 MG TAB PO PRN (12:19)
--- NOTE | 2018-06-17 12:31 | HOSPPROG ---
Hospitalist Progress Note Assessment/Plan: Patient is a 42-year-old male with MS who also injects methamphetamines. He was in his usual state of health when he started having increased back pain and left lower extremity pain approximately 3 days prior to his admission. He also had a fever. *Necrotizing fasciitis/pyomyositis left lower extremity status post washout -secondary from IV injection at the popliteal area, also from licking the needles prior to injection -Wound VAC, change in am -cellulitis and edema improved. -Continue Unasyn *Pain due to the above -hx of recent meth use -oxy ir to scheduled Tylenol -prn IV Dilaudid to be used prior to dressing changes and when wound vac is applied and dressing changes done *SIRS -resolved -temp, leukocytosis, HR. -H/O IVDA -blood cx currently show no growth *Multiple sclerosis - some concern for flare on arrival -appreciate neurology consult -PT/OT -symptoms should improve with treatment of an infection *IVDA -neg hep C and HIV -hepatitis B antibody pending *Hyponatremia -improved -no fluid restriction *Anemia -drop post op *Homelessness -CM to assist with dispo planning -possibly Monday to SNF with wound vac *Paranoid -appreciate Juanis Ray -D/W CM -follow -pt not paranoid now *DVT prophy -LMWH *Plan - Ativan prn due to patient's increase anxiety, -likely withdrawing from meth. -DC to SNF with wound vac in am Subjective: Pain controlled. No new issues. Objective: Vital Signs Temp Pulse Resp BP Pulse Ox 36.6 C 86 14 130/70 H 97 06/17/18 07:16 06/17/18 07:16 06/17/18 07:16 06/17/18 07:16 06/17/18 07:16 Laboratory Results 06/13/18 04:57 06/13/18 04:57 06/16/18 06/17/18 06/18/18 05:59 05:59 05:59 Intake Total 1560 900 Output Total 3995 1975 200 Balance -0861 -8850 -200 - Physical Exam Constitutional: appears nourished, chronically ill appearing Eyes: PERRL, anicteric sclera Ears, Nose, Mouth, Throat: moist mucous membranes, hearing normal Cardiovascular: No JVD, No edema Respiratory: no respiratory distress, reduced air movement Gastrointestinal: No tenderness, No ascites Skin: warm, normal color, other (wound vac) Musculoskeletal: pain with ROM, generalized weakness Neurologic: AAOx3 Psychiatric: not anxious, not encephalopathic, poor insight ICD10 Worksheet Patient Problems: Problems Problem Status Onset Depression Acute Arthralgia Acute Homeless Acute Multiple sclerosis exacerbation Acute
[2018-06-17] MEDS: traMADol 50 MG TAB PO PRN (18:08)
[2018-06-18] MEDS: traMADol 50 MG TAB PO PRN ×2 (00:12→10:42)
[2018-06-18] MEDS: AMPICILLIN/SULBACTAM 3 GM in NS 100 ML IV SCH ×3 (00:13→14:12)
[2018-06-18] MEDS: oxyCODONE IR 5 MG TAB PO PRN ×4 (02:35→15:19)
[2018-06-18] MEDS: METHOCARBAMOL 750 MG TAB PO PRN ×2 (02:35→14:01)
[2018-06-18 08:40] VITALS: BP 166/70
[2018-06-18] MEDS: SENNOSIDES/DOCUSATE SODIUM TAB PO SCH (10:40)
[2018-06-18] MEDS: POLYETHYLENE GLYCOL 3350 17 GM PKT PO SCH (10:40)
[2018-06-18] MEDS: ACETAMINOPHEN 500 MG TAB PO SCH ×2 (10:41→15:20)
[2018-06-18] MEDS: ENOXAPARIN 40 MG/0.4 ML SYR SC SCH (10:41)
[2018-06-18] MEDS: LORazepam 1 MG TAB PO PRN (10:55)
[2018-06-18] MEDS: HYDROmorphONE/DILAUDID 1 MG/ML INJ IVP PRN (13:59)
[2018-06-18] MEDS: LIDOCAINE HCL 4% TOPICAL SOLN 50ML TP SCH (14:02)
--- NOTE | 2018-06-18 14:19 | PDIAF ---
- Diagnosis Diagnosis: L calf necrotizing fasciitis Code Status: Full Code - Medication Management Discharge Medications: Medications to Continue on Transfer Acetaminophen [Tylenol ES 500 mg (*)] 1,000 mg PO TID tab 06/18/18 [Last Taken Unknown] Ampicillin/Sulbactam [Unasyn] 3 gm IV Q6HRS vial 06/18/18 [Last Taken Unknown] Enoxaparin [Lovenox 40 MG (*)] 40 mg SC DAILY syr 06/18/18 [Last Taken Unknown] LORazepam [Ativan (*)] 1 mg PO Q8 PRN tab 06/18/18 [Last Taken Unknown] Lidocaine HCl [Lidocaine HCl 4% Topical Soln (*)] 50 ml TP MWF bottle 06/18/18 [Last Taken Unknown] Methocarbamol [Robaxin 750 mg (*)] 750 mg PO TID PRN tab 06/18/18 [Last Taken Unknown] Polyethylene Glycol 3350 [Miralax 17 gm (*)] 17 gm PO DAILY pkt 06/18/18 [Last Taken Unknown] Sennosides/Docusate Sodium [Senokot-S] 1 - 2 tab PO BID tab 06/18/18 [Last Taken Unknown] oxyCODONE IR [Oxycodone Ir (*)] 10 - 15 mg PO Q4HRS PRN tab 06/18/18 [Last Taken Unknown] traMADol [Ultram 50 mg (*)] 50 mg PO Q6HRS PRN tab 06/18/18 [Last Taken Unknown ] Metal Burnisher Antibiotics: Unasyn 3gm IV q0tcxif Fpc Antibiotic Stop Date: 06/23/18 Discharge Medications: Refer to the Discharge Home Medication list for PRN reason. PICC Care - Routine: N/A (using PIVs) - Orders Isolation Type: None Diet Recommendation: no restrictions on diet Additional Instructions: Wound care: Vac changes MWF. Next change due Monday 06/18. There are 7 pieces of white foam in wound bed that need to be removed on Monday. Have patient lie on his stomach for vac change. Use 4% liquid lidocaine in vac foam and during vac change for pain control. To access tunnels near popliteal area patient must bend his knee 30-[address] white foam over tendon/fascia and pack tunnels lightly with white foam. Do not overpack tunnels as this will impede healing. Place white foam 0.5-1cm short of the end of the tunnel. For the tunnel at 12 oclock the white foam should be 50% the width of the tunnel to allow the tunnel to shut down. Cover all white foam and remainder of wound with black foam. Suction to -125 mm Hg continuous. Mable MAHMOODON - Labs/Radiology CBC w/diff Date: 06/19/18 (weekly Monday) CMP Date: 06/19/18 (weekly Monday) Call or Fax Lab and Imaging Results to: Dr Martínez [phone] - Follow Up Care Current Providers and Referrals: NONE *PRIMARY CARE P,. [Primary Care Provider] - As per Instructions
--- NOTE | 2018-06-18 14:46 | ASMTCMCOM ---
CM Note CM Note Notes: Spoke w/RN and content manager, pt called facility and asked if he could smoke marijuana there and would he be able to come and go. Marine Structural Designer came to speak with pt to educate him that he would have to stay there and would not be able to smoke marijuana there. Ludivina from [facility] also called him and spoke with him, pt will comply with rules. Facility has wound vac, Mable from wound care spoke with Ludivina and will provide the white foam necessary for wound and will write detailed instructions. DC Plan: [place] [facility] Date Signed: 06/18/2018 02:45 PM Electronically Signed By:Juanis Hernandez RN
--- NOTE | 2018-06-18 14:47 | ASMTDCNOTE ---
Case Management Discharge Discharge Order Complete? Answers: Yes Patient to Obtain Answers: Other Notes: [facility] Arranged Answers: Other Notes: [facility] will Pick (Date 06/18/2018 03:30 AM & Time) Agency/Facility Transfer Answers: Yes Report Printed & Faxed to Receiving Agency Discharge Comments Notes: D/w KINDERGARTEN INSTRUCTIONAL ASSISTANT, final orders faxed. Ludivina nunez marisaied, RN to call report. Date Signed: 06/18/2018 02:47 PM Electronically Signed By:Juanis Hernandez RN
--- NOTE | 2018-06-18 15:34 | WOCRNPDOC ---
WOCRN Advanced Assessment Note - Skin Integrity Problem, Advanced Assess Left Posterior Calf Unknown Dressing Type: Wound Vac Dressing Description: Clean/Dry, Intact Exudate Amount: Moderate Exudate Color: Red Exudate Characteristic(s): Serosanguinous Integumentary Issue Intervention: Dressing Changed Wound Bed Color: Red Wound Bed Constitution: Granulation Tissue, Tunneling (12 o'clock, 1 o'clock, and 4 o'clock), Undermining (2 o'clock to 4 o'clock, 7 o'clock to 10 o'clock), Tendon, Fascia Wound Edges: Attached, Not Attached Site Odor: None Skin Integrity Problem Comment: Patient given 1mg IV Dilaudid by Chrissy RN. 4% liquid lidocaine injected into black foam prior to dressing removal. Wound vac dressing removed in preparation for patient transport to [facility]. Drape removed with adhesive remover spray. Black foam removed along with 7 pieces of white foam. 4% liquid lidocaine applied to wound bed. Tunnels loosely packed with iodoform 1/2" packing and along undermined areas. NS moistened Kerlix placed on wound bed. Covered with an ABD and wrapped with Kerlix. Secured with stockinette. 10ml of 4% liquid lidocaine used in total for dressing change. Patient reported moderate amount of pain during dressing change and stated it was worse than last dressing change. Chrissy RN instructed to return hospital vac to 3E after cleaning it.
[2018-06-18] MEDS ORDERED: NYSTATIN POWDER 15 GM BTL TP SCH (16:00)
--- NOTE | 2018-06-18 18:42 | GDS ---
[f rep st] DISCHARGE SUMMARY DISCHARGE DIAGNOSES: 1. Necrotizing fasciitis. 2. Pain. 3. Systemic inflammatory response syndrome. 4. Multiple sclerosis. 5. Intravenous drug use. 6. Hyponatremia. 7. Anemia. 8. Homelessness. 9. Paranoid. CONSULTATIONS: 1. Infectious Disease. 2. General Surgery. PHYSICAL EXAMINATION: GENERAL: The patient is alert. VITAL SIGNS: Afebrile at 36.8, pulse 84, respir atory rate 17, blood pressure is 166/70, saturating 95% on room air. I have seen evaluated the patien t on the day of discharge. HOSPITAL COURSE: The patient is a 42-year-old male who presented to the emergency room with complain ts of leg pain. He was evaluated and diagnosed with: 1. Necrotizing fasciitis. During this hospitalization, he had surgical intervention and wound care. His infection was secondary to IV injection into the popliteal area after licking a needle. Wound VAC was utilized. The patient's condition is significantly improved. He will continue outpatient IV anti biotics at correction facility. 2. Pain. This is stabilized with medications. 3. SIRS. This has resolved, was secondary to acute infection. 4. Multiple sclerosis. He is at his baseline with regard to this and requires further physical thera py and occupational therapy. 5. History of IV drug abuse. This is a chronic problem for the patient. He has received education. H epatitis C and HIV are negative. 6. Hyponatremia is stable. 7. Anemia, secondary to possible blood loss in the postoperative setting. 8. Homelessness. The patient is going to be discharged to correction facility for further wound care and management. DISPOSITION: The patient will be discharged to SNF, requires further inpatient management and physic al and occupational therapy. PENDING STUDIES: There are no pending studies. DISCHARGE MEDICATIONS: Please refer to EMR form, and the patient importantly will continue Unasyn in the outpatient setting IV. I have discussed the patient's disposition with Wound Care, as well as Infectious Disease and Case Felice barker. I spent greater than 35 minutes in the care, coordination, and management of the patient's dispositio n. /[id number]/MODL
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
== END 2018-06-18 15:40 | DRG 501 ==
LOC: EDUNIT# → F3N 22:00 → OBSVTOIN 06-08 12:41 → EEVIPCON 06-08 12:41
PROVIDERS: ADMIT Hospitalist; ATTEND Hospitalist
PROC: 0KBT0ZX Excision of Left Lower Leg Muscle, Open Approach, Diagnostic (ICD-10-PCS; principal; 2018-06-10 20:30)
DX: M72.6 Necrotizing fasciitis (principal); E87.1 Hypo-osmolality and hyponatremia; D62 Acute posthemorrhagic anemia; G35 Multiple sclerosis; F15.90 Other stimulant use, unspecified, uncomplicated; Z59.0 Homelessness; Z72.0 Tobacco use
CPT/HCPCS: 80305; 86704-90; 86708-90; 96374; 97110-GO; 97110-GP; 97116-GP; 97162-GP; 97166-GO; 97530-GO; 97530-GP; 97535-GO; A9585; G0010; G0378; G0472; G8978-GP-CM; G8979-GP-CJ; G8987-GO-CK; G8988-GO-CJ; J0295; J0878; J1100; J1170; J1650; J1885; J2270; J2370; J2405; J2543; J2704; J3010; J3370

== ENCOUNTER 2018-08-28 23:38 | Emergency (ER) | payer OTHER, MEDICAID ==
[2018-08-29 00:45] LABS: PLATELET COUNT 430 10^3/uL (150-400)
--- NOTE | 2018-08-29 04:15 | EDPHY ---
H & P Stated Complaint: hearing voices, SI Time Seen by Provider: 08/28/18 23:56 HPI/ROS: HPI The patient presents with suicidal ideation. Patient says he is hearing voices telling him that he is worse list and that he should kill himself. The voices say that he will be better off he has been hearing these for the last few days. The patient says he has been homeless for the last 1 week after his roommate Iam was killed by Iam's brother. This is traumatized him he says. He says he has been sleeping in the streets recently. On review of outside records, the patient has been in the [facility] emergency department in [place] 3 times in the last 24 hr for chronic pain, also threatening to kill himself there though this was thought to be a manipulative tool. He was thought to be long-term seeking and was discharged from there. Patient said he took a taxi here for another evaluation. REVIEW OF SYSTEMS 10 systems were reviewed and negative with the exception of the elements mentioned in the history of present illness. PMHx: Multiple sclerosis with chronic pain, admitted in May to our hospital for necrotizing fasciitis of his leg, reported PTSD and anxiety Soc Hx: Recently homeless, history of IV drug use PHYSICAL General Appearance: Alert, tearful, crying for most of the interview Eyes: Pupils equal and round no pallor or injection ENT, Mouth: Mucous membranes moist Respiratory: There are no retractions, lungs are clear to auscultation Cardiovascular: Regular rate and rhythm Gastrointestinal: Abdomen is soft and non-tender, no masses, bowel sounds normal Neurological: A&O, moves all extremities Skin: Warm and dry, no rashes Musculoskeletal: Neck is supple non tender Extremities: symmetrical, full range of motion Psychiatric: Patient is oriented X 3, there is no agitation Source: Patient, Old records Exam Limitations: No limitations - Personal History Current Tetanus/Diphtheria Vaccine: Yes - Medical/Surgical History Hx Asthma: No Hx Chronic Respiratory Disease: No Hx Diabetes: No Hx Cardiac Disease: No Hx Renal Disease: No Hx Cirrhosis: No Hx Alcoholism: No Hx HIV/AIDS: No Hx Splenectomy or Spleen Trauma: No Other PMH: MS, mental health (PTSD), anxiety, ADHD, Meth Abuse. Appendectomy fx finger - Social History Smoking Status: Current every day smoker Constitutional: Initial Vital Signs Temperature (C) 36.8 C 10/09/18 23:43 Heart Rate 100 08/28/18 23:43 Respiratory Rate 20 08/28/18 23:43 Blood Pressure 155/97 H 08/28/18 23:43 O2 Sat (%) 97 08/28/18 23:43 O2 Delivery Mode Room Air Allergies/Adverse Reactions: No Known Allergies Allergy (Verified 08/28/18 23:45) Home Medications: Medication Instructions Recorded Acetaminophen [Tylenol ES 500 mg 1,000 mg PO TID tab 06/18/18 (*)] Ampicillin/Sulbactam [Unasyn] 3 gm IV Q6HRS vial 06/18/18 LORazepam [Ativan (*)] 1 mg PO Q8 PRN tab 06/18/18 Methocarbamol [Robaxin 750 mg (*)] 750 mg PO TID PRN tab 06/18/18 oxyCODONE IR [Oxycodone Ir (*)] 10 - 15 mg PO Q4HRS PRN tab 06/18/18 traMADol [Ultram 50 mg (*)] 50 mg PO Q6HRS PRN tab 06/18/18 Gabapentin 08/28/18 Medical Decision Making Differential Diagnosis: 42-year-old man with multiple sclerosis, chronic pain, history of necrotizing fasciitis, history of PTSD and anxiety according to him presents for evaluation for suicidal ideation. Patient asks for a gun to kill himself. However he is newly homeless, has 3 visits in the last 24 hr to outside hospital and has exhibited long-term seeking behavior there. It is unclear if he truly is suicidal or if there are other factors at stake. Given that he is here voluntarily, I will not place him on a hold currently. We will check basic labs and monitor him overnight. I will likely have the mental health team see him in the morning. At 5:45 a.m., the patient was evaluated by the mental health aluminum siding applicator Krishna who felt that the patient was safe for discharge. He believes the patient is displaying very manipulative behavior with secondary gain as a large part of his presentation. He will be discharged from the emergency department. At about 6:30 a.m., the patient called 911. He said he was feeling suicidal. He does not want to leave the emergency department. He said he would likely jumped in front of a train, however he is not very mobile, using a walker most of the time and I am not sure if he has the capacity to carry this out. Pancho the mental health aluminum siding applicator came back to evaluate the patient and agreed that this is likely malingering. Police arrived in her able to take him to the walk- in clinic at [facility]. The patient was upset by this. Requiring police quality assurance supervisor final to come to the emergency department. Patient eventually left the emergency department. - Data Points Laboratory Results: Laboratory Results 08/29/18 00:20 08/29/18 00:20 Departure - Departure Disposition: Home, Routine, Self-Care Clinical Impression: Multiple sclerosis, Homelessness, Stress response Depression Qualifiers: Depression Type: unspecified Qualified Code(s): F32.9 - Major depressive disorder, single episode, unspecified Condition: Good Instructions: [facility] Additional Instructions: The patient was seen and evaluated in the emergency department. He was deemed to be medically clear and did not require any further mental health her medical evaluation. He did not appear to meet 27-65 criteria and can be discharged to the walk-in clinic at [facility]. Referrals: [facility] [Clinic] - As per Instructions
--- NOTE | 2018-08-29 06:14 | ASMTLCPROG ---
Notes Note: Notes: Pt is a 42 yo, homeless, male, self-presented to [facility] ED on a voluntary basis after having been seen and evaluated at [facility] ED in [place], [place] 3 times in the last 24 hours for chronic pain. Per [facility] ED records, when pt was released he started getting upset that he did not want to leave and then said if he leaves he was going to kill himself. Pt has no plan. The [facility] ED provider noted believing that pt was using this as a manipulative tool in order to be able to stay there longer and did not feel that this pt was a very high risk for actual self-harm and allowed pt to be released. Pt was thought to be detention seeking. Pt's presentation at [facility] ED is consistent with what was noted at [facility] ED. Pt took a cab to [facility], was demanding "[employer]" treats. In consultation with [facility] ED physician, Varsha Dillard MD, Dr. Dillard concurred that pt appears to be seeking secondary gains from being in the ED and malingering. Dr. Dillard agreed to discharge pt. Pt has outpatient resources for follow up. Date Signed: 08/29/2018 06:14 AM Electronically Signed By:Krishna Rolon
[2018-08-29 07:26] VITALS: BP 131/78
== END 2018-08-29 07:43 | disposition home or self-care (01) ==
DX: F32.9 Major depressive disorder, single episode, unspecified (principal); G35 Multiple sclerosis; Z59.0 Homelessness
CPT/HCPCS: G0480

== ENCOUNTER 2018-08-30 11:32 | Emergency (ER) | payer OTHER, MEDICAID ==
--- NOTE | 2018-08-30 12:35 | EDPHY ---
General Time Seen by Provider: 08/30/18 12:27 Narrative: CHIEF COMPLAINT: Back pain, hand pain HISTORY OF PRESENT ILLNESS: Patient presents by EMS with complaints of back pain and hand pain. He reports several days of low back pain after recent falls. He reports history of MS, ambulating with a walker. He says he has been falling more frequently lately. He has [id number] low back pain from most recent fall. No numbness or tingling. No weakness. No incontinence of bowel or bladder he also has complaints of hand and foot pain over the past few days. He attributes this swelling. He has no trauma or injury to them. He admits that he was here earlier this evening with a different complaint and did not mention these at the time. At that time he is feeling suicidal but no longer feels this way. He adamantly denies any suicidal ideation. He has worsening pain with movement. Does not radiate. Minimal improvement rest. Has not been taking any medication for this. Does not have a primary care physician. No other associated complaints or modifying factors REVIEW OF SYSTEMS: 10 systems were reviewed and negative with the exception of the elements mentioned in the history of present illness. PCP: None SPECIALISTS: Plastic surgery at [facility] Neurology at [facility] PAST MEDICAL HISTORY: MS, PTSD, attention deficit hyperactivity disorder, polysubstance abuse, appendicitis PAST SURGICAL HISTORY: Appendectomy and orthopedic surgery SOCIAL HISTORY: Daily smoker. Currently homeless. Admits to occasional illicit substance use FAMILY HISTORY: Noncontributory EXAMINATION: General Appearance: Alert, no distress. Unkempt. Stafford in full sentences with me. Head: normocephalic, atraumatic Eyes: Pupils equal and round, no conjunctival pallor or injection ENT, Mouth: Mucous membranes moist. Very poor dentition. Neck: Normal inspection, supple, non-tender. No meningismus Respiratory: Mild rhonchi. No wheezing, crackles or diminishment. Cardiovascular: Regular rate and rhythm Good signs of perfusion to the lower extremities Back: Mild lower lumbar tenderness without crepitus step-off or deformity. Neurological: GCS 15 A&O, nonfocal, light sensory symmetric upper lower extremities. Strength is symmetric at 4/5 in both lower extremities. Patellar reflexes are 2+ symmetrically Skin: Unclean but grossly intact. There is a chronic wound to the left proximal calf and popliteal fossa with an adjacent skin graft host. There is no signs of cellulitis, abscess or necrosis. Extremities: No tenderness of the hands, feet, knees, hips, elbows or shoulders. Range of motion reportedly baseline per patient Psychiatric: Mood and affect normal DIFFERENTIAL DIAGNOSES: Including but not limited to sprain, strain, fracture, dislocation, contusion, malingering MDM: 12:30 p.m. Bilateral ongoing hand foot pain with no signs of injury or abnormality. He does have a lumbar back pain with midline tenderness with recent fall. He is neuro intact to baseline for the patient with no acute abnormalities. He has no incontinence of bowel or bladder. No evidence of acute cord compression by history or exam. He does have a chronic wound to the left posterior leg with no signs of infection. I have ordered x-ray of the low back, ibuprofen and Tylenol. He has no acute distress. I have reviewed his extensive note from last night and he is not suicidal or homicidal at this time. He is cooperative for me and has been visited by nurse case management. 1:30 p.m. X-ray of the lumbar spine is negative for any acute findings. SANDOR Falcon, as provided assistance and found a place for the patient to be seen today at [facility] for walking care. We also discussed body wheelchair for him. We discussed ibuprofen and Tylenol. We discussed further medications from primary care physician after establishing today. [facility] lower extremity chronic wound. We discussed ED precautions. I have answered all his questions. He is discharged home stable condition. SUPERVISION: This patient was independently evaluated without direct involvement of or examination by the attending physician. - Diagnostics Imaging Results: Imaging Impressions Lumbar Spine X-Ray 08/30/18 12:36 Impression: Negative lumbar spine radiographs. - History Smoking Status: Current every day smoker - Objective Vital Signs: Initial Vital Signs Temperature (C) 98.4 F 08/30/18 11:46 Heart Rate 75 08/30/18 11:46 Respiratory Rate 12 08/30/18 11:46 Blood Pressure 125/74 H 08/30/18 11:46 O2 Sat (%) 98 08/30/18 11:46 O2 Delivery Mode Room Air Allergies/Adverse Reactions: No Known Allergies Allergy (Verified 08/28/18 23:45) Home Medications: Medication Instructions Recorded Acetaminophen [Tylenol ES 500 mg 1,000 mg PO TID tab 06/18/18 (*)] Ampicillin/Sulbactam [Unasyn] 3 gm IV Q6HRS vial 06/18/18 LORazepam [Ativan (*)] 1 mg PO Q8 PRN tab 06/18/18 Methocarbamol [Robaxin 750 mg (*)] 750 mg PO TID PRN tab 06/18/18 oxyCODONE IR [Oxycodone Ir (*)] 10 - 15 mg PO Q4HRS PRN tab 06/18/18 traMADol [Ultram 50 mg (*)] 50 mg PO Q6HRS PRN tab 06/18/18 Gabapentin 08/28/18 Ibuprofen 600 mg PO Q8 PRN #15 tablet 08/30/18 Medications Given: Discontinued Medications Acetaminophen (Tylenol) 650 mg PO EDNOW ONE Stop: 08/30/18 12:38 Last Admin: 08/30/18 12:59 Dose: 650 mg Ibuprofen (Motrin) 600 mg PO EDNOW ONE Stop: 08/30/18 12:38 Last Admin: 08/30/18 12:59 Dose: 600 mg Departure - Departure Disposition: Home, Routine, Self-Care Clinical Impression: Multiple sclerosis Chronic pain Qualifiers: Chronic pain type: other chronic pain Qualified Code(s): G89.29 - Other chronic pain Lumbar strain Qualifiers: Encounter type: initial encounter Qualified Code(s): S39.012A - Strain of muscle, fascia and tendon of lower back, initial encounter Condition: Good Instructions: Low Back Strain (ED), Lower Back Exercises (ED) Additional Instructions: 1. Ibuprofen 600 mg every 8 hr as needed for pain 2. Tylenol 650 mg every 6 hr as needed for pain 3. You are being provided transportation to the [facility] for walking evaluation today. 4. ED precautions discussed Referrals: NONE *PRIMARY CARE P,. [Primary Care Provider] - As per Instructions [facility],. [Clinic] - As per Instructions Prescriptions: Ibuprofen 600 mg PO Q8 PRN #15 tablet PRN Reason: Pain, Mild
[2018-08-30] MEDS ORDERED: IBUPROFEN 600 MG TAB PO ONE (12:37)
[2018-08-30] MEDS ORDERED: ACETAMINOPHEN 325 MG TAB PO ONE (12:37)
[2018-08-30 13:27] VITALS: BP 120/70
--- NOTE | 2018-08-30 14:07 | ASMTCMCOM ---
CM Note CM Note Notes: Pt presented to the ED via EMS for hand and feet pain. Pt was in the ED 08/28/18 for SI and discharged the next morning; required [employer] to escort him off the hospital premises. Pt is homeless and states he has completed Coordinated Entry and was referred to the [facility] but has not stayed there yet. Pt states he went there last night but did not get a bed through the lottery so he stayed at the [facility] location. Pt states he has a guaranteed bed at [facility] due to not getting a bed last night. Pt missed his appt at [facility] this morning at 11:40am. Pt agreeable to being provided a cab ride to 's Homeless Walk-in hours from 2-4pm today. This CM called and spoke theodora/Sarah and relayed that pt will be coming to their Walk-In hours; discussed his follow-up needs, recent falls, and his possible need for a Rxn for a wheelchair. Pt has a history of MS, ADHD, unspecified mental health issues, and substance abuse. Cab voucher provided due to time limitation, otherwise would have arranged Medicaid cab. Pt also gave permission to send a referral to [facility]. Pt had been given a [facility] pamphlet during May 2018 admission but states he is unfamiliar with the program. Pt's cell # [phone]. Pt provided a pair of pajama pants as CM didn't have any other pants in his size at this time. CM available for further assistance if needed. Date Signed: 08/30/2018 02:06 PM Electronically Signed By:Terrie Huffman RN
== END 2018-08-30 14:00 | disposition home or self-care (01) ==
LOC: EDUNIT#
DX: S39.012A Strain of muscle, fascia and tendon of lower back, initial encounter (principal); G89.29 Other chronic pain; G35 Multiple sclerosis; F17.200 Nicotine dependence, unspecified, uncomplicated; Z59.0 Homelessness

== ENCOUNTER 2018-09-03 17:05 | Emergency (ER) | payer OTHER, MEDICAID ==
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
[2018-09-03 18:31] LABS: PLATELET COUNT 430 10^3/uL (150-400)
[2018-09-03] MEDS ORDERED: ACETAMINOPHEN 500 MG TAB ONE (20:41)
[2018-09-03] MEDS ORDERED: ACETAMINOPHEN 500 MG TAB PO ONE (20:42)
[2018-09-03] MEDS ORDERED: CEPHALEXIN 500 MG CAP PO SCH (22:00)
[2018-09-03 22:05] VITALS: BP 127/76
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
--- NOTE | 2018-09-03 22:21 | ASMTTCLDSP ---
TLC Discharge Disposition Disposition Notes: Notes: Pt was encouraged to follow up with [facility] and/or [facility]. Pt was givena cab voucher to the [facility]. Pt was given crisis and suciide prevention hotline numbers, Discharge Concerns/Recommendations: Notes: In consultation with [facility] ED physician, Rosetta Suazo MD, and on-call psychiatrist, Ankush Smith MD, both concurred that pt does not appear to meet 27-65 criteria requiring psychiatric hospitalization as pt does not appear to be an imminent risk of harm to self/others/gravely disabled due to a mental illness condition. Psychiatrist vacating M1 Ankush Smith MD Hold: Date and time M1 hold 09/03/2018 09:45 PM vacated (time format is hh:mm): Type of Hold: Answers: M1/72-hour Hold Date Signed: 09/03/2018 10:20 PM Electronically Signed By:Emeli Montgomery
== END 2018-09-03 22:19 | disposition home or self-care (01) ==
LOC: EDUNIT#
DX: R45.851 Suicidal ideations (principal); F33.2 Major depressive disorder, recurrent severe without psychotic features; G35 Multiple sclerosis; F17.200 Nicotine dependence, unspecified, uncomplicated
CPT/HCPCS: 80305; G0480

== ENCOUNTER 2018-09-05 18:14 | Emergency (ER) | payer OTHER, MEDICAID ==
[2018-09-05] MEDS ORDERED: OLANZapine DISINTEGR 5 MG TAB PO ONE (18:24)
--- NOTE | 2018-09-05 18:28 | EDPHY ---
H & P Source: Patient, EMS, Old records Exam Limitations: No limitations - Medical/Surgical History Hx Asthma: No Hx Chronic Respiratory Disease: No Hx Diabetes: No Hx Cardiac Disease: No Hx Renal Disease: No Hx Cirrhosis: No Hx Alcoholism: No Hx HIV/AIDS: No Hx Splenectomy or Spleen Trauma: No Other PMH: MS, mental health (PTSD), ADHD, Meth Abuse. Appendectomy fx finger - Social History Smoking Status: Current every day smoker Time Seen by Provider: 09/05/18 18:22 HPI/ROS: HPI: This is a 42-year-old male who presents with Chief Complaint: Suicidal ideation Location: psych Quality: Suicidal ideation Duration: Several days Signs and Symptoms: no auditory hallucinations, no visual hallucinations, + suicidal ideation with a plan, no homicidal ideation, paranoia Timing: Acute on Severity: Moderate to severe Context: Patient is brought in on M1 hold by [facility] from the [facility] provider, Hallie Black, who is concerned that he is an imminent danger to himself. Patient stated he was suicidal was going to put a belt around his neck. Upon arrival roommate found belt on patient's lab that was looped and patient told his roommate that he was suicidal and that life is not worth living. Patient poses a danger to himself. Patient was seen in this emergency room on 09/03/2018. Patient has a history of major depression. Modifying Factors: None Comment: ROS: A comprehensive 10 system review of systems is otherwise negative aside from elements mentioned in the history of present illness. MEDICAL/SURGICAL/SOCIAL HISTORY: Medical history: MS, mental health (PTSD), ADHD, Meth Abuse, finger fracture Surgical history: Appendectomy Social history: Smoker. Family history noncontributory. CONSTITUTIONAL: Untidy, uncooperative, male, awake and alert, no obvious distress HEENT: Atraumatic and normocephalic, PERRL, EOMI. Nares patent; no rhinorrhea; no nasal mucosal edema. Tympanic membranes clear. Oropharynx clear, no exudate and moist pink mucosa. Airway patent. No lymphadenopathy. No meningismus. Cardiovascular: Normal S1/S2, regular rate, regular rhythm, without murmur rub or gallop. PULMONARY/CHEST: Symmetrical and nontender. Clear to auscultation bilaterally. Good air movement. No accessory muscle usage. ABDOMEN: Soft, nondistended, nontender, no rebound, no guarding, no peritoneal signs, no masses or organomegaly. No CVAT. EXTREMITIES: 2/2 pulses, strength 5/5, no deformities, no clubbing, no cyanosis or edema. NEUROLOGICAL: no focal neuro deficits. GCS 15. SKIN: Warm and dry, no erythema. no rash. Good capillary refill. PSYCH: Poor eye contact, + flight of ideas, disorganized thought process, poor insight and judgment, no auditory hallucinations, no visual hallucinations, + suicidal ideation with a plan, no homicidal ideation, paranoia (Jesica,Terra) Constitutional: Initial Vital Signs Temperature (C) 36.5 C 09/05/18 18:32 Heart Rate 90 09/05/18 18:32 Respiratory Rate 18 09/05/18 18:32 Blood Pressure 138/82 H 09/05/18 18:32 O2 Sat (%) 96 09/05/18 18:32 O2 Delivery Mode Room Air Allergies/Adverse Reactions: No Known Allergies Allergy (Verified 09/05/18 18:35) Home Medications: Medication Instructions Recorded Acetaminophen [Tylenol ES 500 mg 1,000 mg PO TID tab 06/18/18 (*)] Ampicillin/Sulbactam [Unasyn] 3 gm IV Q6HRS vial 06/18/18 LORazepam [Ativan (*)] 1 mg PO Q8 PRN tab 06/18/18 Methocarbamol [Robaxin 750 mg (*)] 750 mg PO TID PRN tab 06/18/18 oxyCODONE IR [Oxycodone Ir (*)] 10 - 15 mg PO Q4HRS PRN tab 06/18/18 traMADol [Ultram 50 mg (*)] 50 mg PO Q6HRS PRN tab 06/18/18 Gabapentin 08/28/18 Ibuprofen 600 mg PO Q8 PRN #15 tablet 08/30/18 Medical Decision Making ED Course/Re-evaluation: 0600: No acute events overnight. Patient signed over at 7:00 a.m. Shift change to Dr. Suazo. M1 hold gravely disabled. Here depression. Suicide ideation. (Daljit Byrnes) 7:00 a.m. I assumed care of this patient at shift change. He presented with suicidal ideation and is on an M1 hold. He has been seen by mental health and felt to have malingering behavior. He is well known to Dr. Cueva and to Krishna. M1 hold lifted by Dr. Cueva. The plan is to discharge him after case management. The patient was escorted out of the emergency department by PD. (Rosetta Suazo) 1649: Agree with M1 hold as patient is severely depressed, gravely disabled, and intentional suicide attempt by hanging. Labs and UDS ordered. Zyprexa 5 mg given. 2049: Labs grossly unremarkable. Urine drug screen negative. Medically clear for mental health evaluation. 0000: End of shift. Signed over to Dr. Byrnes. Notified by TLC that evaluation will occur in the morning. This patient was seen under the supervision of my secondary supervising physician. I evaluated care for this patient independently. Discussed this patient with Dr. Cat. (Keturah Mooney) Differential Diagnosis: Differential diagnosis includes but is not limited to malingering, major depression, suicidal ideation, generalized anxiety disorder, bipolar disorder. (Keturah Mooney) - Data Points Laboratory Results: Laboratory Results 09/05/18 19:20 09/05/18 19:20 Medications Given: Discontinued Medications Ibuprofen (Motrin) 600 mg PO EDNOW ONE Stop: 09/06/18 07:47 Last Admin: 09/06/18 08:10 Dose: 600 mg Olanzapine (Zyprexa Zydis) 5 mg PO EDNOW ONE Stop: 09/05/18 18:25 Last Admin: 09/05/18 19:37 Dose: 5 mg Departure - Departure Disposition: Home, Routine, Self-Care Clinical Impression: Suicidal ideation Condition: Good Instructions: Depression (ED), Suicide Prevention (ED) Referrals: [facility],. [Clinic] - As per Instructions (Follow-up as suggested.)
[2018-09-05 19:29] LABS: PLATELET COUNT 364 10^3/uL (150-400)
[2018-09-06 05:50] VITALS: BP 112/73
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
[2018-09-06] MEDS ORDERED: IBUPROFEN 600 MG TAB PO ONE ×2 (07:46→07:47)
--- NOTE | 2018-09-06 07:46 | ASMTTCLDSP ---
TLC Discharge Disposition Disposition: Answers: Discharge If Answers: Yes DISCHARGED: Patient/family given suicide hotline info & [employer] brochure? Disposition Notes: Notes: Pt was given local hotline information and [employer] brochure After an Attempt and encouraged to follow up with either [facility] and/or [facility]. ED Case management provided pt with cab voucher to the detention or [facility]. Discharge Concerns/Recommendations: Notes: In consultation with [facility] ED physician, Rosetta Suazo MD, and on-call psychiatrist, Ankush Smith MD, both concurred that pt does not appear to meet 27-65 criteria requiring psychiatric hospitalization as pt does not appear to be an imminent risk of harm to self/others/gravely disabled due to a mental illness condition. Dr. Suazo provided verbal order read back vacating M1 hold at 0725 hrs. Was patient given the Answers: Not applicable [facility]patient [facility] Prohibited Belongings List while in the ED? Psychiatrist vacating M1 Rosetta Suazo MD Hold: Date and time M1 hold 09/06/2018 07:25 AM vacated (time format is hh:mm): Type of Hold: Answers: M1/72-hour Hold Hold initiated by: Answers: Other Notes: [facility] Date Signed: 09/06/2018 07:45 AM Electronically Signed By:Krishna Rolon
== END 2018-09-06 09:35 | disposition home or self-care (01) ==
LOC: EDUNIT#
DX: R45.851 Suicidal ideations (principal); F32.9 Major depressive disorder, single episode, unspecified; G35 Multiple sclerosis; F17.200 Nicotine dependence, unspecified, uncomplicated
CPT/HCPCS: 80305; G0480

== ENCOUNTER 2018-12-15 11:21 | Emergency (ER) | payer OTHER, MEDICAID ==
--- NOTE | 2018-12-15 12:11 | EDPHY ---
H & P Stated Complaint: R foot pain x 4 days Time Seen by Provider: 12/15/18 12:10 HPI/ROS: HPI: This is a 43-year-old male who presents with Chief Complaint: Right foot pain x4 days Location: Bottom of Right foot Quality: Pain Duration: 4 days Signs and Symptoms: No bleeding, no radiation, no numbness, no weakness, no tingling, no incontinence, no decreased range of motion, no swelling, + pain, no fever, no injury Timing: Gradual onset, worse with weight-bearing Severity: Moderate Context: Patient has a history of multiple sclerosis, uses a wheelchair to aid ambulation, presents with right foot pain at the bottom for the last 4 days. Denies any actual trauma or injury. Patient believes that he may have ill positioning while sitting in the wheelchair for long periods of time. No history of gout. Denies skin color changes. Patient reports that he has chronic numbness to the bottom of his feet. Modifying Factors: Patient reports gabapentin and oxycodone give moderate relief Comment: ROS: A comprehensive 10 system review of systems is otherwise negative aside from elements mentioned in the history of present illness. MEDICAL/SURGICAL/SOCIAL HISTORY: Medical history: MS, mental health (PTSD), ADHD, Meth Abuse, finger fracture Surgical history: Appendectomy Social history: Current every day smoker. Disabled. Homeless. CONSTITUTIONAL: Polite and cooperative middle-aged male, awake and alert, no obvious distress HEENT: Atraumatic and normocephalic, PERRL, EOMI. Nares patent; no rhinorrhea; no nasal mucosal edema. Tympanic membranes clear. Oropharynx clear, no exudate and moist pink mucosa. Airway patent. No lymphadenopathy. No meningismus. Cardiovascular: Normal S1/S2, regular rate, regular rhythm, without murmur rub or gallop. PULMONARY/CHEST: Symmetrical and nontender. Clear to auscultation bilaterally. Good air movement. No accessory muscle usage. ABDOMEN: Soft, nondistended, nontender, no rebound, no guarding, no peritoneal signs, no masses or organomegaly. No CVAT. EXTREMITIES: 2/2 pulses, strength 5/5, right Ankle: Plantar flexion to 50, dorsiflexion to 20. Foot inversion to 35 degree. No tenderness/swelling Anterior talofibular ligament. No tenderness/swelling Calcaneofibular ligament , no tenderness/swelling posterior talofibular ligament, no tenderness/swelling posterior inferior tibiofibular ligament. Tenderness from the ball of his foot all the way to the heel with no skin color changes noted; pain is increased with plantar flexion. Achilles tendon intact. no deformities, no clubbing, no cyanosis or edema. NEUROLOGICAL: no focal neuro deficits. GCS 15. SKIN: Warm and dry, no erythema. no rash. Good capillary refill. Source: Patient Exam Limitations: No limitations - Medical/Surgical History Hx Asthma: No Hx Chronic Respiratory Disease: No Hx Diabetes: No Hx Cardiac Disease: No Hx Renal Disease: No Hx Cirrhosis: No Hx Alcoholism: No Hx HIV/AIDS: No Hx Splenectomy or Spleen Trauma: No Other PMH: MS, mental health (PTSD), ADHD, Meth Abuse. Appendectomy fx finger - Social History Smoking Status: Current every day smoker Constitutional: Initial Vital Signs Temperature (C) 36.5 C 12/15/18 11:25 Heart Rate 76 12/15/18 11:25 Respiratory Rate 16 12/15/18 11:25 Blood Pressure 117/80 12/15/18 11:25 O2 Sat (%) 96 12/15/18 11:25 O2 Delivery Mode Room Air Allergies/Adverse Reactions: No Known Allergies Allergy (Verified 09/05/18 18:35) Home Medications: Medication Instructions Recorded Acetaminophen [Tylenol ES 500 mg 1,000 mg PO TID tab 06/18/18 (*)] Ampicillin/Sulbactam [Unasyn] 3 gm IV Q6HRS vial 06/18/18 LORazepam [Ativan (*)] 1 mg PO Q8 PRN tab 06/18/18 Methocarbamol [Robaxin 750 mg (*)] 750 mg PO TID PRN tab 06/18/18 oxyCODONE IR [Oxycodone Ir (*)] 10 - 15 mg PO Q4HRS PRN tab 06/18/18 traMADol [Ultram 50 mg (*)] 50 mg PO Q6HRS PRN tab 06/18/18 Gabapentin 08/28/18 Ibuprofen 600 mg PO Q8 PRN #15 tablet 08/30/18 Medical Decision Making - Diagnostics Imaging Results: Imaging Impressions Foot X-Ray 12/15/18 11:36 Impression: Negative for acute fracture. ED Course/Re-evaluation: Right foot x-ray ordered and negative for acute fracture, dislocation. Suspect plantar fasciitis verses incorrect footwear or positioning while in the wheelchair. Patient has an appointment on Monday with the clinic already and advised that he can discussed with them regarding his wheelchair situation. No signs of neurovascular compromise/tenting of skin/compartment syndrome/ extremities and joints examined above and below area of concern and are neurovascularly intact/gouty arthropathy/cellulitis/tenosynovitis. This patient was seen under the supervision of my secondary supervising physician. I evaluated care for this patient independently. Discussed this patient with Dr. Son who did not see the patient. Differential Diagnosis: Differential diagnosis includes but is not limited to tendinitis, plantar fasciitis, fracture, degenerative changes, overuse. Departure - Departure Disposition: Home, Routine, Self-Care Clinical Impression: Multiple sclerosis, Right foot pain Condition: Good Instructions: Plantar Fasciitis (ED) Additional Instructions: [facility]. Discussed new wheelchair or padding for your wheelchair. Referrals: [facility],. [Clinic] - As per Instructions
[2018-12-15 13:02] VITALS: BP 119/80
== END 2018-12-15 13:02 | disposition home or self-care (01) ==
LOC: EDUNIT#
DX: M79.671 Pain in right foot (principal); G35 Multiple sclerosis

== ENCOUNTER 2018-12-23 12:55 | Emergency (ER) | payer OTHER, MEDICAID ==
--- NOTE | 2018-12-23 13:12 | EDPHY ---
H & P Stated Complaint: near syncope Time Seen by Provider: 12/23/18 13:11 HPI/ROS: CHIEF COMPLAINT: "Loss of orientation," chest pain HISTORY OF PRESENT ILLNESS: The patient is a 43 y/o male with a history of multiple sclerosis, IV drug abuse, and necrotizing fascitis who (05/2018) arriving via EMS complaining of a "loss of orientation" and chest pain while sitting outside in his wheelchair this afternoon. He says, "everything went blurry and my chest started hurting and I thought I was dying." He "couldn't move anything, didn't know where I was at" and called EMS for help. He denies loss of consciousness during this event. He continues to have mild chest pain along his left lateral chest that is unchanged with breathing and also feels like his breathing is shallow. No radiation of this pain. No diaphoresis. His vision has improved and he had some nausea that has also improved. He did have incontinence during this event and reports this sometimes happens at night when he is unable to get to the bathroom in time. No vomiting, abdominal pain, diarrhea, dysuria, hematuria, recent illness, recent falls or trauma. He is not currently on any MS medications. He denies history of cardiac or respiratory issues. REVIEW OF SYSTEMS: A ten system review of systems was performed and is negative with the exception of the items mentioned in the HPI. Past medical history: 1. Multiple sclerosis 2. History of intravenous drug abuse 3. Methamphetamine abuse 4. Sepsis and necrotizing fascitis May 2018 Past surgical history: 1. Appendectomy 2. LLE resection of necrotic tissue 06/10/18 Family history: Noncontributory Social history: Staying in respite home, history of IVDA - reports he is sober since May 2018, smokes marijuana, no alcohol, 1/2 pack per day smoker. Can walk short distances, most of the time spent in wheelchair. PCP: Delphine Washington. Neurologist: Dr. Lowe. Prior medical records reviewed including admission 06/08/18 for sepsis, necrotizing fascitis. General Appearance: Alert. Vital signs reviewed. Initial blood pressure 127/ 86. Eyes: Pupils equal and round, no conjunctival injection, no discharge. Anicteric. ENT, Mouth: Mucous membranes are moist, no oropharyngeal erythema or edema. Neck: No lymphadenopathy, supple. Respiratory: Lungs are clear to auscultation; no wheezes, rales, or rhonchi. Cardiovascular: Regular rate and rhythm; no murmur, rub, or gallop. Chest: Tenderness to left lower rib cage at midaxillary line. No skin changes, swelling, rash. Gastrointestinal: Abdomen is soft and nontender, no masses or organomegaly. Skin: Warm and dry, no rashes on exposed skin, normal color. Back: Nontender to palpation over the thoracolumbar spine. No CVAT. Extremities: No lower extremity edema, no calf tenderness or swelling. Neurological: Alert and oriented. Psychiatric: Normal affect. - Personal History Current Tetanus/Diphtheria Vaccine: No Current Tetanus Diphtheria and Acellular Pertussis (TDAP): No - Medical/Surgical History Hx Asthma: No Hx Chronic Respiratory Disease: No Hx Diabetes: No Hx Cardiac Disease: No Hx Renal Disease: No Hx Cirrhosis: No Hx Alcoholism: No Hx HIV/AIDS: No Hx Splenectomy or Spleen Trauma: No Other PMH: MS, mental health (PTSD), ADHD, Meth Abuse. Appendectomy fx finger - Social History Smoking Status: Current every day smoker Constitutional: Initial Vital Signs Temperature (C) 36.6 C 12/23/18 13:05 Heart Rate 71 12/23/18 13:05 Respiratory Rate 17 12/23/18 13:05 Blood Pressure 127/86 H 12/23/18 13:05 O2 Sat (%) 97 12/23/18 13:05 O2 Delivery Mode Room Air Allergies/Adverse Reactions: No Known Allergies Allergy (Verified 09/05/18 18:35) Home Medications: Medication Instructions Recorded Acetaminophen [Tylenol ES 500 mg 1,000 mg PO TID tab 06/18/18 (*)] Ampicillin/Sulbactam [Unasyn] 3 gm IV Q6HRS vial 06/18/18 LORazepam [Ativan (*)] 1 mg PO Q8 PRN tab 06/18/18 Methocarbamol [Robaxin 750 mg (*)] 750 mg PO TID PRN tab 06/18/18 oxyCODONE IR [Oxycodone Ir (*)] 10 - 15 mg PO Q4HRS PRN tab 06/18/18 traMADol [Ultram 50 mg (*)] 50 mg PO Q6HRS PRN tab 06/18/18 Gabapentin 08/28/18 Ibuprofen 600 mg PO Q8 PRN #15 tablet 08/30/18 Medical Decision Making ED Course/Re-evaluation: This is a 43 y/o male with a history of MS, IVDA, and necrotizing fascitis who presents with chest pain and complaining of "loss of orientation" this afternoon. Apart from mild left lateral chest wall tenderness, his exam is at baseline and he is hemodynamically stable. He is currently completely alert and oriented. Plan for IV, labs, EKG. He has had no chest trauma and there is no chest bruising. He is oxygenating well and is not tachypneic. His lung sounds are normal. I do not suspect pneumonia. I think pneumothorax or rib fracture is unlikely. I doubt PE. He did not have a syncopal episode. It is not clear to me exactly what happened based upon his description but he did not lose consciousness. His pain is somewhat reproducible with palpation over his lower ribcage in the midaxillary line. I think that his pain is musculoskeletal. There are no skin changes that would suggest shingles. He has no significant risk factors for cardiovascular disease. An initial troponin is normal. My suspicion for an acute coronary syndrome is low. We discussed additional testing and he is not interested in pursuing further cardiac workup. The 12 lead EKG was interpreted by myself. Sinus mechanism, rate 64. See hard copy and/or "tracemaster" electronic copy for interpretation. Labs unremarkable. Reassessed patient and discussed findings. Recommended discharge home and follow up. Return precautions discussed. He is comfortable with this plan. Differential Diagnosis: Chest pain including but not limited to myocardial ischemia, pulmonary embolus, chest wall pain, pleural inflammation and pulmonary infectious causes. ED lightheadedness differential - Data Points Laboratory Results: Laboratory Results 12/23/18 15:30 12/23/18 13:49 Point of Care Test Results: Chemistry 12/23/18 13:53 POC Troponin I 0.00 ng/mL ng/mL (0.00-0.08) Departure - Departure Disposition: Home, Routine, Self-Care Clinical Impression: Near syncope, Chest wall pain Condition: Good Instructions: Near Syncope (ED), Chest Wall Pain (ED) Additional Instructions: Follow up with your neurologist in the next week. Tylenol and ibuprofen as directed on the packaging as needed for pain over the next few days. Return to the ED for worsening of condition. Referrals: Robert Lowe MD [Medical Doctor] - As per Instructions Report Scribed for: Fernanda Weber Report Scribed by: Tati Lanier Date of Report: 12/23/18 Time of Report: 13:14 Physician Review and Approval Statement: 12/24/18 14:29 Portions of this note were transcribed by the medical data analyst. I, Dr. Fernanda Weber, personally performed the history, physical exam, and medical decision- making; and confirmed the accuracy of the information in the transcribed note.
[2018-12-23 15:42] LABS: PLATELET COUNT 298 10^3/uL (150-400)
[2018-12-23 16:01] VITALS: BP 122/78
--- NOTE | 2018-12-23 16:33 | ASMTCMCOM ---
CM Note CM Note Notes: Pt presented to the ED via EMS for near syncope, "loss of orientation" and left sided chest pain. Pt is currently staying in a respite bed at [facility] ([phone]; formerly the [facility] location). Pt requested that CM call [facility] ([phone]) to get a respite staff member's # so he could see if they can come pick pt up from the ED. Spoke w/Pete at [facility] and he provided the # for the respite staff member, Yohannes. This CM spoke w/Yohannes and he states he just finished his shift and there are no other staff members available to pick the pt up. Spoke w/pt and he states he feels comfortable taking a regular cab (due to lack of wheelchair accessible cabs in the [place] area there would be potentially several hours wait) and he is able to transfer himself in and out of his WC & the cab safely. Spoke w/Yohannes and he is also comfortable with this plan. This CM called [facility] to arrange a Medicaid cab but VE said pt's Medicaid is not active at this time. Pt is confused by this and states he will followup w/Medicaid. This CM provided a cab voucher for pt to return to [facility] respite at [address]. CM called [facility] and Yohannes back and relayed discharge plan. Pt pleasant, calm, and appreciative of assistance. Pt states he has an appt w/his PCP Delphine Washington at [facility] either tomorrow or Monday. CM available for further assistance if needed. Date Signed: 12/23/2018 04:32 PM Electronically Signed By:Terrie Huffman RN
--- NOTE | 2018-12-23 21:01 | CPEKG ---
Test Reason : OPEN Blood Pressure : / mmHG Vent. Rate : 064 BPM Atrial Rate : 064 BPM P-R Int : 180 ms QRS Dur : 119 ms QT Int : 439 ms P-R-T Axes : 049 023 024 degrees QTc Int : 453 ms Sinus rhythm Nonspecific intraventricular conduction delay Confirmed by Fernanda Weber ([id number]) on 12/23/2018 9:01:23 PM Referred By: Fernanda Weber Confirmed By:Fernanda Weber
== END 2018-12-23 16:00 | disposition home or self-care (01) ==
LOC: EDUNIT#
DX: R07.89 Other chest pain (principal); R55 Syncope and collapse
CPT/HCPCS: 84484-ER

== ENCOUNTER → 2019-01-23 | Outpatient (CLI) | payer OTHER, MEDICAID ==
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
== END ==
PROVIDERS: ATTEND Psychiatry & Neurology Neurology
DX: G35 Multiple sclerosis (principal); Z99.3 Dependence on wheelchair
CPT/HCPCS: 97162-GP